=== PATIENT | female | born 1985 | race African-American/Black ===

== ENCOUNTER 2018-10-29 09:58 | Inpatient (IN) | payer MEDICARE, OTHER ==
[2018-10-29] MEDS ORDERED: CARBOPROST TROMETHAMINE 250 MCG/ML 1 ML AMP IM PRN (10:32)
[2018-10-29] MEDS ORDERED: AMPICILLIN 2,000 MG in SODIUM CHLORIDE 0.9% 100 ML IVPB STA (10:32)
[2018-10-29] MEDS ORDERED: TERBUTALINE 1 MG/ML VIAL SQ PRN (10:32)
[2018-10-29] MEDS ORDERED: OXYTOCIN 10 UNIT/ML 1 ML VIAL IM PRN (10:32)
[2018-10-29] MEDS ORDERED: LIDOCAINE 0.5% (PF) 5 MG/ML (50 ML SDV) SQ PRN (10:32)
[2018-10-29] MEDS ORDERED: METHYLERGONOVINE 0.2 MG/ML 1 ML AMP IM PRN (10:32)
[2018-10-29] MEDS ORDERED: LACTATED RINGERS 1,000 ML IV SCH (10:45)
[2018-10-29] MEDS ORDERED: OXYTOCIN 30 UNITS/500 ML NS 30 UNIT in SALINE 1 500ML.BAG IV SCH (10:45)
[2018-10-29 10:57] LABS: Glucose,Whole Blood 208 mg/dL (75-99)
[2018-10-29 11:01] LABS: Basophils % (A) 0 %; Eosinophils # (A) 0.1 k/uL (0-0.7); Eosinophils % (A) 2 %; HCT 49.8 % (34.0-46.0); HGB 15.9 gm/dL (11.4-16.0); Hypochromasia Slight; Lymphocytes # (A) 0.4 k/uL (1.0-4.8); Lymphocytes % (A) 7 %; MCH 28.1 pg (25.0-35.0); MCHC 31.9 g/dL (31.0-37.0); MCV 88.2 fL (80.0-100.0); Mean Platelet Volume 7.9; Monocytes # (A) 0.3 k/uL (0-1.0); Monocytes % (A) 5 %; Neutrophils # (A) 5.2 k/uL (1.3-7.7); Neutrophils % (A) 85 %; Platelet Count 135 k/uL (150-450); RBC 5.65 m/uL (3.80-5.40); RDW 14.6 % (11.5-15.5); WBC 6.1 k/uL (3.8-10.6)
[2018-10-29] MEDS ORDERED: WITCH HAZEL 1 EACH MED..PAD TOPICAL PRN (11:28)
[2018-10-29] MEDS ORDERED: BISACODYL 10 MG SUPP RECTAL PRN (11:28)
[2018-10-29] MEDS ORDERED: LANOLIN CREAM 5 GM TUBE TOPICAL PRN (11:28)
[2018-10-29] MEDS ORDERED: ZOLPIDEM 5 MG TAB PO PRN (11:28)
[2018-10-29] MEDS ORDERED: diphenhydrAMINE 50 MG/ML 1 ML VIAL IVP PRN (11:28)
[2018-10-29] MEDS ORDERED: diphenhydrAMINE 25 MG CAP PO PRN (11:28)
[2018-10-29] MEDS ORDERED: BENZOCAINE/MENTHOL SPRAY 1 GM/SPRAY AEROSOL TOPICAL PRN (11:28)
[2018-10-29] MEDS ORDERED: HYDROCORTISONE 2.5% RECTAL CREAM 30 GM TUBE RECTAL PRN (11:28)
[2018-10-29] MEDS ORDERED: SIMETHICONE 80 MG CHEWABLE PO PRN (11:28)
[2018-10-29] MEDS ORDERED: OXYTOCIN 20 UNITS/1000 ML NS 1,000 ML IV SCH (11:30)
--- NOTE | 2018-10-29 11:49 | US ---
EXAMINATION TYPE: US OB >= 14 wk fetus DATE OF EXAM: 10/29/2018 COMPARISON: None CLINICAL HISTORY: position TECHNIQUE: Transabdominal (TA) GESTATIONAL AGE / DATING Physician Established: unknown Dates by LMP: unknown Dates by First Scan: unknown Dates by Current Scan: unknown Beta HCG (if available): SURVEY IUP: PLACENTA: PREVIA: No Previa ELVA: cm head in cervix BIOMETRY PRESENTATION: Vertex LIE: Oblique BPD: 8.7 cm 35 weeks / 1 days HC: 31.1 cm 34 weeks / 6 days AC: 34 cm 38 weeks / 0 days FL: 6.7 cm 34 weeks / 4 days ESTIMATED WEIGHT IN GRAMS: 2935 grams ESTIMATED WEIGHT IN LBS/OZ: 6 lbs. 8 oz. HC/AC: 0.9 FL/AC: not recorded HEART RATE: 153 bpm RHYTHM: Normal Patient in active labor, head in canal and measurement estimated to best ability. Baby delivered within moments of finish of exam IMPRESSION: Limited exam.
[2018-10-29] MEDS: IBUPROFEN 600 MG TAB PO PRN ×2 (11:50→17:41)
--- NOTE | 2018-10-29 12:24 | P.HPOB ---
History of Present Illness H&P Date: 10/29/18 Chief Complaint: Contractions. Limited care This patient is a 33-year-old 5 para 4 female who presented to labor and delivery with complaints of contractions. Patient states that she was getting care with Dr. Marie however she is not seen him in over 3 weeks. Patient is a gestational diabetic and possibly pre-gestational diabetic who has not been checking her blood sugars or managing any of her diabetes. Patient states that she "does not care anymore" and has been "eating whatever she wants". She states that she did see maternal medicine once in her and they gave her a due date of November 27 which places her approximately 35-36 weeks. Patient previously seen Dr. Gunn with her last and similar was noncompliant with her diabetes and care. Patient states she has not been controlling her blood sugars for over 2 years. Patient now is found to be in active labor and delivering. Review of Systems Genitourinary: Reports Menstruation: Reports amenorrhea Past Medical History Past Medical History: Diabetes Mellitus (Gestational A2) Additional Past Medical History / Comment(s): 4 spontaneous vaginal deliveries. Patient's history is significant for noncompliance and history of positive group B strep. History of Any Multi-Drug Resistant Organisms: None Reported Past Surgical History: No Surgical Hx Reported Past Anesthesia/Blood Transfusion Reactions: No Reported Reaction Past Psychological History: ADD/ADHD, Anxiety, Bipolar Smoking Status: Never smoker Past Alcohol Use History: None Reported Past Drug Use History: None Reported - Past Family History Mother Family Medical History: Diabetes Mellitus Medications and Allergies Home Medications Medication Instructions Recorded Confirmed Type Acyclovir 400 mg PO DAILY 09/22/17 09/22/17 History Insulin Glargine [Lantus] 30 unit SQ HS 09/22/17 09/22/17 History Insulin Lispro [humaLOG] 10 units SQ ACHS 09/22/17 09/22/17 History Acetaminophen Tab [Tylenol] 650 mg PO Q4HR PRN #30 tab 09/24/17 Rx Ibuprofen [Motrin] 600 mg PO Q6HR PRN #30 tab 09/24/17 Rx Allergies Allergy/AdvReac Type Severity Reaction Status Date / Time Fish Containing Products Allergy Nausea & Verified 09/22/17 06:12 [Fish] Vomiting & Diarrhea milk Allergy Nausea & Verified 09/22/17 06:12 Vomiting & Diarrhea shellfish derived [Shellfish] AdvReac Anaphylaxis Verified 09/22/17 06:12 Exam Intake and Output 10/28/18 10/29/18 10/29/18 22:59 06:59 14:59 Other: Weight 113.398 kg - OBG Physical Exam Abdomen: bowel sounds normal, no diffuse tenderness, no bruit present, no guar ding noted, no hepatomegaly, no splenomegaly, no mass Results No records are available to me from this . Patient's had a previous with Dr. Gunn shows her to be positive for group B strep. Ultrasounds shows a vertex 6 lbs. 8 oz. Result Diagrams: 10/29/18 10:39 10/29/18 10:39 Abnormal Lab Results - Last 24 Hours (Table) 10/29/18 10/29/18 10/29/18 Range/Units 10:36 10:39 10:39 RBC 5.65 H (3.80-5.40) m/uL Hct 49.8 H (34.0-46.0) % Plt Count 135 L (150-450) k/uL Lymphocytes # 0.4 L (1.0-4.8) k/uL Glucose 194 H (74-99) mg/dL POC Glucose (mg/dL) 208 H (75-99) mg/dL Assessment and Plan Assessment: This is a 33-year-old 5 para 4 female probably 35-36 weeks with limited/noncompliant care who is in active labor. Please see dictated delivery note. On admission I did order blood work, complete ultrasound, IV antibiotics. Had a discussion with the patient about her noncompliance with diabetes and she says she really "does not care". Patient delivered precipitously in the bathroom despite having this happen to her previously and I'm suspicious that she knew this was going to happen. Plan at this time is to resume care and also will get a social media content manager consult. (1) 35 to 36 weeks gestation of Current Visit: Yes Status: Acute Code(s): OXA0150 - SNOMED Code(s): 100175997 (2) Gestational diabetes mellitus Current Visit: Yes Status: Acute Code(s): O24.419 - GESTATIONAL DIABETES MELLITUS IN , UNSP CONTROL SNOMED Code(s): 42585064 (3) Non-compliance with treatment Current Visit: Yes Status: Acute Code(s): Z91.19 - PATIENT'S NONCOMPLIANCE W OTH MEDICAL TREATMENT AND REGIMEN SNOMED Code(s): 5307143
--- NOTE | 2018-10-29 12:27 | P.PROBDLV ---
Vaginal Delivery Note - . Vaginal Delivery Note: Normal spontaneous vaginal delivery viable female infant Apgars 8 and 8 delivery time is 108 hours. Please note patient delivered precipitously in the bathroom. Please see dictated H&P on this patient's admission. Brief summary this is a 33-year-old 5 para 4 female with no care/limited care with uncontrolled gestational diabetes who presented this morning with complaints of contractions. Patient had pelvic ultrasound showed infant to be vertex 6 lbs. 8 oz. and was 6-7 cm dilated. Patient was immediately given IV antibiotics secondary to unknown group B strep status. Patient stated that she had to go to the bathroom and she refused catheterization and therefore she got up and went to the bathroom on her own. The nurse was subsequently called while she was delivering the baby in the bathroom. This was a viable female Ap gars were 8 and 8 delivery time was 1108 hrs. Please see nursing notes. The is then subsequent taken to special care nursery for evaluation due to prematurity and lack of care. Dr. Alas did come over because I was in a delivery and he deliver the placenta is inspected the perineum. Patient had a first-degree laceration which she refused repair. Therefore no repair was done. Bleeding appears to be normal. We'll now resume normal care.
[2018-10-29 12:42] LABS: Appearance,Urine Clear (Clear); Bacteria,Urine Rare /hpf; Bilirubin,Urine Negative (Negative); Blood,Urine Moderate (Negative); Color,Urine Yellow; Glucose,Urine (UA) 4+ (Negative); Leukocyte Esterase,Urine Negative (Negative); Mucus,Urine Rare /hpf; Nitrite,Urine Negative (Negative); Protein,Urine 1+ (Negative); RBC,Urine 24 /hpf (0-5); Specific Gravity,Urine 1.021 (1.001-1.035); Squamous Epithelial Cell,Urine 1 /hpf (0-4); Urobilinogen,Urine <2.0 mg/dL (<2.0); WBC,Urine 1 /hpf (0-5)
[2018-10-29 13:05] LABS: Ketones,Urine 4+ (Negative)
[2018-10-29] MEDS: ACETAMINOPHEN TAB 325 MG TAB PO PRN ×2 (13:13→23:16)
[2018-10-29 13:26] LABS: Amphetamine Screen,Urine Not Detected (NotDetected); Barbiturate Screen,Urine Not Detected (NotDetected); Benzodiazepines Screen,Urine Not Detected (NotDetected); Cocaine Screen,Urine Not Detected (NotDetected); Methadone Screen, Urine Not Detected (NotDetected); Opiate Screen,Urine Not Detected (NotDetected); Oxycodone Screen, Urine Not Detected (NotDetected); Phencyclidine Screen,Urine Not Detected (NotDetected); Tricyclic Antidepressant,Urine Not Detected (NotDetected); Urn Cannabinoid Scrn Not Detected (NotDetected)
[2018-10-29 14:16] VITALS: BMI 42.9
[2018-10-29] MEDS ORDERED: AMPICILLIN 1,000 MG in SODIUM CHLORIDE 0.9% 50 ML IVPB SCH (14:30)
[2018-10-29 17:28] LABS: HIV 1 AB Non-Reactive (Non-Reactive); HIV AB P24 Non-Reactive (Non-Reactive); HIV P24 AG Non-Reactive (Non-Reactive)
[2018-10-29 18:31] LABS: Hemoglobin A1C 9.9 % (4.0-6.0)
[2018-10-29] MEDS: SENNOSIDES-DOCUSATE SODIUM 1 EACH TAB PO SCH (19:53)
[2018-10-30] MEDS: IBUPROFEN 600 MG TAB PO PRN ×2 (06:02→15:27)
--- NOTE | 2018-10-30 07:19 | P.PN ---
Progress Note - Text Progress Note Date: 10/30/18 Post day #1. Patient is resting without complaints. Vital signs are stable and she is afebrile. Uterus is firm nontender she's having normal lochia. Her hemoglobin A1c returned at 9.9 and I had a long discussion with her about her poor diabetic control. Patient already does have established care with a primary care physician but as I stated previously she indicated to me that she is not been watching her blood sugar for well over 2 years. I emphasized the need for glucose regulation. At this time we'll continue routine care. Upon discharge tomorrow patient will follow up with her out and out cigar maker hand Dr. Marie and her primary care physician for glucose regulation. Patient has not indicated a desire for diabetic care at this time.
[2018-10-30] MEDS: ACETAMINOPHEN TAB 325 MG TAB PO PRN ×2 (07:56→20:33)
[2018-10-30] MEDS: SENNOSIDES-DOCUSATE SODIUM 1 EACH TAB PO SCH ×2 (07:56→20:33)
[2018-10-30 08:59] LABS: Basophils % (A) 0 %; Eosinophils # (A) 0.2 k/uL (0-0.7); Eosinophils % (A) 4 %; HCT 45.1 % (34.0-46.0); HGB 14.3 gm/dL (11.4-16.0); Hypochromasia Slight; Lymphocytes # (A) 0.5 k/uL (1.0-4.8); Lymphocytes % (A) 12 %; MCH 28.2 pg (25.0-35.0); MCHC 31.6 g/dL (31.0-37.0); MCV 89.2 fL (80.0-100.0); Mean Platelet Volume 9.1; Monocytes # (A) 0.3 k/uL (0-1.0); Monocytes % (A) 7 %; Neutrophils # (A) 2.8 k/uL (1.3-7.7); Neutrophils % (A) 72 %; Platelet Count 138 k/uL (150-450); RBC 5.06 m/uL (3.80-5.40); WBC 3.9 k/uL (3.8-10.6)
[2018-10-31] MEDS: IBUPROFEN 600 MG TAB PO PRN ×2 (01:54→07:48)
--- NOTE | 2018-10-31 07:25 | P.PNOBGVD ---
Subjective - Subjective Patient reports: Reports appetite normal, Reports voiding normally, Reports pain well controlled, Reports ambulating normally : doing well Objective - Latest Vital Signs Latest vital signs: Vital Signs Temp Pulse Resp BP 10/30/18 23:19 98.1 F 93 16 111/67 10/30/18 16:00 98.2 F 88 16 112/64 10/30/18 08:00 98.1 F 87 16 126/71 Intake and Output 10/30/18 10/31/18 10/31/18 22:59 06:59 14:59 Other: # Voids 1 1 - Exam Lungs: bilateral: normal Chest: Normal S1, Normal S2 Extremities: Present: normal Abdomen: Present: normal appearance, soft Uterus: Present: normal, firm - Labs Labs: Abnormal Lab Results - Last 24 Hours (Table) 10/30/18 Range/Units 08:42 Plt Count 138 L (150-450) k/uL Lymphocytes # 0.5 L (1.0-4.8) k/uL Assessment and Plan Assessment: day #2. Patient is resting without complaints. Vital signs are stable and she is afebrile. Patient was seen by dietary yesterday due to the most likely diagnosis of pre-gestational diabetes. My impression is normal course. Plan is to continue routine care discharge home later today. (1) 35 to 36 weeks gestation of Current Visit: Yes Status: Acute Code(s): LIE3903 - SNOMED Code(s): 308988135 (2) Gestational diabetes mellitus Current Visit: Yes Status: Acute Code(s): O24.419 - GESTATIONAL DIABETES MELLITUS IN , UNSP CONTROL SNOMED Code(s): 61974763 (3) Non-compliance with treatment Current Visit: Yes Status: Acute Code(s): Z91.19 - PATIENT'S NONCOMPLIANCE W OTH MEDICAL TREATMENT AND REGIMEN SNOMED Code(s): 8769646
--- NOTE | 2018-10-31 07:31 | P.DS ---
Providers Date of admission: 10/29/18 10:24 Expected date of discharge: 10/31/18 Attending physician: Apollo Liu Primary care physician: Stated None - Discharge Diagnosis(es) (1) 35 to 36 weeks gestation of Current Visit: Yes Status: Acute (2) Gestational diabetes mellitus Current Visit: Yes Status: Acute (3) Non-compliance with treatment Current Visit: Yes Status: Acute Hospital Course: Please see dictated H&P for intimate details of this patient's admission. In brief summary this is a 33-year-old 5 para 4 female who is admitted to labor and delivery in advanced active labor. Patient has had relatively no care and has a previous diagnosis of insulin-dependent diabetes. Patient quickly went on to have a precipitous vaginal delivery of viable female infant. Please see dictated delivery note. Of note evaluation did show a hemoglobin A1c of 9.9 and the patient indicated she is not been watching her blood sugars for well over 2 years. She does have a primary care doctor which she does see. Patient was seen by dietary while in the hospital. Patient declined any treatment for her diabetes. She states she would prefer to discuss this with her primary care physician. Patient was felt be stable for discharge home on day #2. She was instructed to follow-up with her primary tire mounter Dr. Marie for visit and she also will follow up with her primary care physician for her diabetes in 1-2 days. I did briefly discuss control with her and she indicated: "I do not believe in control". I recommended that she continue this discussion with Dr. Marie due to the increased risk of gestational diabetes and poor outcome. Procedures: Normal spontaneous vaginal delivery. Patient Condition at Discharge: Good Plan - Discharge Summary New Discharge Prescriptions: New Ibuprofen [Motrin] 600 mg PO Q6HR PRN #30 tab PRN Reason: Mild Pain Or Fever >= 100.5 Discharge Medication List Ibuprofen [Motrin] 600 mg PO Q6HR PRN #30 tab 10/31/18 [Rx] Follow up Appointment(s)/Referral(s): Jules Marie DO [REFERRING] - 1 Week Patient Instructions/Handouts: Vaginal Delivery (DC) Activity/Diet/Wound Care/Special Instructions: No intercourse or anything per vagina for 6 weeks. Please call if any fever, chills, excessive vaginal bleeding, and/or abdominal pain. Please call your primary tire mounter to be seen within the next week for evaluation and follow- up Discharge Disposition: HOME SELF-CARE
[2018-10-31 07:58] VITALS: RESP 15
[2018-10-31] MEDS: ACETAMINOPHEN TAB 325 MG TAB PO PRN (15:12)
[2018-10-31 15:38] VITALS: BP 116/70; PULSE 90; TEMP 98.6
[2018-10-31] MEDS: SENNOSIDES-DOCUSATE SODIUM 1 EACH TAB PO SCH (18:17)
--- NOTE | 2018-11-03 09:04 | CDI ---
Documentation Clarification Form Date: 11/03/2018 7:50:00 AM From: Yadira Huang Jennifer Salinas, Sales Assistant Displays Hours-8:30 am & 5 pm [employer] Admit Date: 10/29/2018 10:24:00 AM Patient Name: Flor Cazares Visit Number: [id number] Discharge Date: 10/31/2018 4:15:00 PM ATTENTION: The Clinical Documentation Specialists (CDI) and [facility] Coding Staff appreciate your assistance in clarifying documentation. Please respond to the clarification below the line at the bottom and electronically sign. The CDI & [facility] Coding staff will review the response and follow-up if needed. Please note: Queries are made part of the Legal Health Record. If you have any questions, please contact the author of this message via ITS. Dr. Apollo Liu Diabetes is documented as gestational and possibly pre existing in the PNs, H&P, DS, History/Risk Factors: Non Compliance, Family HX DM Clinical Indicators: Elevated Glucose Patient has previous dx of insulin dependent DM with a recommendation to follow up with PCP for diabetes documented on the DS. In order to capture the severity of Illness and necessary documentation specificity, please clarify: DM Type 1 DM Type 2 Gestational DM Other, please specify Unable to Determine Unable to determine. Patient has had no care with wa or at this facility. Diagnosis is based on patient's history MTDD
== END 2018-10-31 16:15 | disposition home or self-care (01) | DRG 807 ==
LOC: FBPOP 09:58 → 4FBP 10:24
PROVIDERS: ADMIT Obstetrics & Gynecology; ATTEND Obstetrics & Gynecology
PROC: 10E0XZZ Delivery of Products of Conception, External Approach (ICD-10-PCS; principal; 2018-10-29)
DX: O60.14X0 Preterm labor third trimester with preterm delivery third trimester, not applicable or unspecified (principal); Z37.0 Single live birth; O99.344 Other mental disorders complicating childbirth; O24.429 Gestational diabetes mellitus in childbirth, unspecified control; O70.0 First degree perineal laceration during delivery; F90.9 Attention-deficit hyperactivity disorder, unspecified type; F31.9 Bipolar disorder, unspecified; F41.9 Anxiety disorder, unspecified; O99.824 Streptococcus B carrier state complicating childbirth; O62.3 Precipitate labor; Z3A.36 36 weeks gestation of pregnancy; Z91.19 Patient's noncompliance with other medical treatment and regimen; Z91.011 Allergy to milk products; Z91.013 Allergy to seafood; Z83.3 Family history of diabetes mellitus
CPT/HCPCS: 76805; 80306; 81001; 82947; 83036; 85025; 86762; 86780; 86850; 86900; 86901; 87340; 87390; 88307; 99213

== ENCOUNTER 2019-09-12 14:49 | Inpatient (IN) | payer MEDICARE, OTHER ==
[2019-09-12] MEDS ORDERED: ACETAMINOPHEN TAB 325 MG TAB PO STA (15:00)
[2019-09-12 15:02] LABS: Glucose,Whole Blood 242 mg/dL (75-99)
[2019-09-12] MEDS ORDERED: SODIUM CHLORIDE 0.9% 1,000 ML IV ONE (15:27)
[2019-09-12] MEDS ORDERED: SODIUM CHLORIDE 0.9% 500 ML 500 ML IV ONE (15:27)
[2019-09-12] MEDS ORDERED: KETOROLAC 30 MG/ML 1 ML VIAL IVP STA (15:28)
[2019-09-12] MEDS ORDERED: SODIUM CHLORIDE 0.9% 1,000 ML IV SCH (15:30)
--- NOTE | 2019-09-12 15:44 | ED ---
Abdominal Pain HPI - General Chief Complaint: Abdominal Pain Stated Complaint: Abd.pain Time Seen by Provider: 09/12/19 15:00 Source: patient Mode of arrival: ambulatory - History of Present Illness Initial Comments: 34-year-old female presenting today for chief complaint of flank pain left- sided, fever. Patient states she has had left-sided flank pain for the past 2 weeks. Patient states she expresses approximately 1 month ago and presented to the [facility] where she was discharged after laboratory studies were obtained no imaging studies patient was concerned she had a kidney stone at this time. Patient denies passage of kidney stone. Patient denies hematuria. Patient denies dysuria urgency or frequency. Patient states that she is also diabetic and has been eating whatever she wants to not taking her medications as she should. Patient states that she has had nausea and has not been wanting to eat for the past few days she denies vomiting. Denies diarrhea. Patient states she developed a fever yesterday that persisted into today she thought that something was wrong and she needs presents to the emergency department. Patient denies upper respiratory symptoms. Patient states she continues to have left flank pain that varies in intensity. Ptient states pain was relieved at [facility] one month prior with toradol. Upon arrival patient febrile. - Related Data Home Medications Medication Instructions Recorded Confirmed glipiZIDE [Glucotrol] 20 mg PO BID 09/12/19 09/12/19 Allergies Allergy/AdvReac Type Severity Reaction Status Date / Time Fish Containing Products Allergy Nausea & Verified 09/12/19 18:49 [Fish] Vomiting & Diarrhea milk Allergy Nausea & Verified 09/12/19 18:49 Vomiting & Diarrhea shellfish derived [Shellfish] AdvReac Anaphylaxis Verified 09/12/19 18:49 Review of Systems ROS Statement: Those systems with pertinent positive or pertinent negative responses have been documented in the HPI. ROS Other: All systems not noted in ROS Statement are negative. Past Medical History Past Medical History: Diabetes Mellitus Additional Past Medical History / Comment(s): 4 spontaneous vaginal deliveries. Patient's history is significant for noncompliance and history of positive group B strep. History of Any Multi-Drug Resistant Organisms: None Reported Past Surgical History: No Surgical Hx Reported Past Anesthesia/Blood Transfusion Reactions: No Reported Reaction Past Psychological History: ADD/ADHD, Anxiety, Bipolar Smoking Status: Never smoker Past Alcohol Use History: None Reported Past Drug Use History: None Reported - Past Family History Mother Family Medical History: Diabetes Mellitus General Exam - General Exam Comments Initial Comments: General: The patient is awake and alert, in no distress Eye: +3 mm pupils are equal, round and reactive to light, extra-ocular movements are intact. No nystagmus. There is normal conjunctiva bilaterally. No signs of icterus. Ears, nose, mouth and throat: There are moist mucous membranes and no oral lesions. Neck: The neck is supple, there is no tenderness or JVD. Cardiovascular: There is a regular rate and rhythm. No murmur, rub or gallop is appreciated. Respiratory: Lungs are clear to auscultation, respirations are non-labored, breath sounds are equal. No wheezes, stridor, rales, or rhonchi. Gastrointestinal: Soft, non-distended, non-tender abdomen including pelvic region without masses or organomegaly noted. There is no rebound or guarding present. No CVA tenderness. Pelvic: NO external lesions, blood in vault brown, no significant discharge. no adnexal or cervical motion tenderness. Musculoskeletal: Normal ROM, no tenderness. Strength 5/5. Sensation intact. Radial pulses equal bilaterally 2+. Neurological: A&O x 3. CN II-XII intact grossly, There are no obvious motor or sensory deficits. Coordination appears grossly intact. Speech is normal. Skin: Skin is warm and dry and no rashes or lesions are noted. Psychiatric: Cooperative, appropriate mood & affect, normal judgment. Course Vital Signs 09/12/19 09/12/19 09/12/19 14:52 14:56 15:56 Temperature 103.0 F H Pulse Rate 111 H 102 H Pulse Rate [ Pulse Oximetery ] Respiratory 18 20 20 Rate Blood Pressure 120/75 112/60 Blood Pressure [Right Arm] O2 Sat by Pulse 98 98 Oximetry 09/12/19 09/12/19 09/12/19 16:56 17:00 18:00 Temperature Pulse Rate 99 99 99 Pulse Rate [ Pulse Oximetery ] Respiratory 20 20 20 Rate Blood Pressure 109/62 Blood Pressure [Right Arm] O2 Sat by Pulse 98 98 98 Oximetry 09/12/19 09/12/19 09/12/19 19:00 20:00 20:45 Temperature 100.1 F H 100.2 F H Pulse Rate 96 Pulse Rate [ 97 Pulse Oximetery ] Respiratory 20 16 16 Rate Blood Pressure Blood Pressure 114/80 [Right Arm] O2 Sat by Pulse 98 100 Oximetry Medical Decision Making - Medical Decision Making 34-year-old diabetic presenting for left flank pain, and ingrown. CT revealed no evidence of septic stone. Patient's urinalysis consistent with urinary tract infection concerned for pyelonephritis. Patient given rocephin iVPB. Patient has no signs of PID on pelvic. I feel UTI/ lifestyle causes of increased sugar and subsequent acidosis. Patient was placed on insulin drip without bolus. Patient also had IV potassium given she was at 3.5 prior to insulin drip administration. Given patient mild elevation of anion gap are ordered a second CMP to be drawn to closely monitor when insulin drip may be discontinued. Patient continues to r emain stable in ER and will be admitted for IV abx and hydration. Dr. Huston accepted admission and case was discussed in detail with attending provider Dr. Gill. - Lab Data Result diagrams: 09/12/19 15:35 09/12/19 19:08 Lab Results 09/12/19 09/12/19 09/12/19 Range/Units 14:56 15:35 15:35 WBC 8.6 (3.8-10.6) k/uL RBC 5.01 (3.80-5.40) m/uL Hgb 13.8 (11.4-16.0) gm/dL Hct 43.0 (34.0-46.0) % MCV 85.8 (80.0-100.0) fL MCH 27.5 (25.0-35.0) pg MCHC 32.1 (31.0-37.0) g/dL RDW 12.8 (11.5-15.5) % Plt Count 174 (150-450) k/uL Neutrophils % 85 % Lymphocytes % 3 % Monocytes % 7 % Eosinophils % 1 % Basophils % 2 % Neutrophils # 7.3 (1.3-7.7) k/uL Lymphocytes # 0.3 L (1.0-4.8) k/uL Monocytes # 0.6 (0-1.0) k/uL Eosinophils # 0.1 (0-0.7) k/uL Basophils # 0.2 (0-0.2) k/uL Sodium 137 (137-145) mmol/L Potassium 3.5 (3.5-5.1) mmol/L Chloride 103 (98-107) mmol/L Carbon Dioxide 18 L (22-30) mmol/L Anion Gap 16 mmol/L BUN 13 (7-17) mg/dL Creatinine 0.71 (0.52-1.04) mg/dL Est GFR (CKD-EPI)AfAm >90 (>60 ml/min/1.73 sqM) Est GFR (CKD-EPI)NonAf >90 (>60 ml/min/1.73 sqM) Glucose 256 H (74-99) mg/dL POC Glucose (mg/dL) 242 H (75-99) mg/dL POC Glu Brick Wheeler ID Nini Krishnan Plasma Lactic Acid Sher (0.7-2.0) mmol/L Calcium 9.0 (8.4-10.2) mg/dL Phosphorus (2.5-4.5) mg/dL Magnesium (1.6-2.3) mg/dL Total Bilirubin 0.8 (0.2-1.3) mg/dL AST 21 (14-36) U/L ALT 12 (4-34) U/L Alkaline Phosphatase 146 H (38-126) U/L Total Protein 7.2 (6.3-8.2) g/dL Albumin 4.0 (3.5-5.0) g/dL Amylase 35 (30-110) U/L Lipase 55 (23-300) U/L Urine Color Urine Appearance (Clear) Urine pH (5.0-8.0) Ur Specific [place] (1.001-1.035) Urine Protein (Negative) Urine Glucose (UA) (Negative) Urine Ketones (Negative) Urine Blood (Negative) Urine Nitrite (Negative) Urine Bilirubin (Negative) Urine Urobilinogen (<2.0) mg/dL Ur Leukocyte Esterase (Negative) Urine RBC (0-5) /hpf Urine WBC (0-5) /hpf Ur Squamous Epith Cells (0-4) /hpf Urine Mucus (None) /hpf Urine HCG, Qual (Not Detectd) Acetone, Qual Positive (Negative) Influenza Type A RNA (Not Detectd) Influenza Type B (PCR) (Not Detectd) Trichomonas Ag (Rapid) (Negative) 09/12/19 09/12/19 09/12/19 Range/Units 15:35 15:35 15:35 WBC (3.8-10.6) k/uL RBC (3.80-5.40) m/uL Hgb (11.4-16.0) gm/dL Hct (34.0-46.0) % MCV (80.0-100.0) fL MCH (25.0-35.0) pg MCHC (31.0-37.0) g/dL RDW (11.5-15.5) % Plt Count (150-450) k/uL Neutrophils % % Lymphocytes % % Monocytes % % Eosinophils % % Basophils % % Neutrophils # (1.3-7.7) k/uL Lymphocytes # (1.0-4.8) k/uL Monocytes # (0-1.0) k/uL Eosinophils # (0-0.7) k/uL Basophils # (0-0.2) k/uL Sodium (137-145) mmol/L Potassium (3.5-5.1) mmol/L Chloride (98-107) mmol/L Carbon Dioxide (22-30) mmol/L Anion Gap mmol/L BUN (7-17) mg/dL Creatinine (0.52-1.04) mg/dL Est GFR (CKD-EPI)AfAm (>60 ml/min/1.73 sqM) Est GFR (CKD-EPI)NonAf (>60 ml/min/1.73 sqM) Glucose (74-99) mg/dL POC Glucose (mg/dL) (75-99) mg/dL POC Glu Brick Wheeler ID Plasma Lactic Acid Sher 1.1 (0.7-2.0) mmol/L Calcium (8.4-10.2) mg/dL Phosphorus (2.5-4.5) mg/dL Magnesium (1.6-2.3) mg/dL Total Bilirubin (0.2-1.3) mg/dL AST (14-36) U/L ALT (4-34) U/L Alkaline Phosphatase (38-126) U/L Total Protein (6.3-8.2) g/dL Albumin (3.5-5.0) g/dL Amylase (30-110) U/L Lipase (23-300) U/L Urine Color Yellow Urine Appearance Cloudy H (Clear) Urine pH 6.0 (5.0-8.0) Ur Specific [place] 1.028 (1.001-1.035) Urine Protein 2+ H (Negative) Urine Glucose (UA) 4+ H (Negative) Urine Ketones 4+ H (Negative) Urine Blood Moderate H (Negative) Urine Nitrite Negative (Negative) Urine Bilirubin Negative (Negative) Urine Urobilinogen 4.0 (<2.0) mg/dL Ur Leukocyte Esterase Moderate H (Negative) Urine RBC 18 H (0-5) /hpf Urine WBC 79 H (0-5) /hpf Ur Squamous Epith Cells 7 H (0-4) /hpf Urine Mucus Occasional H (None) /hpf Urine HCG, Qual Not Detected (Not Detectd) Acetone, Qual (Negative) Influenza Type A RNA (Not Detectd) Influenza Type B (PCR) (Not Detectd) Trichomonas Ag (Rapid) (Negative) 09/12/19 09/12/19 09/12/19 Range/Units 15:35 16:00 17:50 WBC (3.8-10.6) k/uL RBC (3.80-5.40) m/uL Hgb (11.4-16.0) gm/dL Hct (34.0-46.0) % MCV (80.0-100.0) fL MCH (25.0-35.0) pg MCHC (31.0-37.0) g/dL RDW (11.5-15.5) % Plt Count (150-450) k/uL Neutrophils % % Lymphocytes % % Monocytes % % Eosinophils % % Basophils % % Neutrophils # (1.3-7.7) k/uL Lymphocytes # (1.0-4.8) k/uL Monocytes # (0-1.0) k/uL Eosinophils # (0-0.7) k/uL Basophils # (0-0.2) k/uL Sodium (137-145) mmol/L Potassium (3.5-5.1) mmol/L Chloride (98-107) mmol/L Carbon Dioxide (22-30) mmol/L Anion Gap mmol/L BUN (7-17) mg/dL Creatinine (0.52-1.04) mg/dL Est GFR (CKD-EPI)AfAm (>60 ml/min/1.73 sqM) Est GFR (CKD-EPI)NonAf (>60 ml/min/1.73 sqM) Glucose (74-99) mg/dL POC Glucose (mg/dL) (75-99) mg/dL POC Glu Brick Wheeler ID Plasma Lactic Acid Sher (0.7-2.0) mmol/L Calcium (8.4-10.2) mg/dL Phosphorus 1.9 L (2.5-4.5) mg/dL Magnesium 1.9 (1.6-2.3) mg/dL Total Bilirubin (0.2-1.3) mg/dL AST (14-36) U/L ALT (4-34) U/L Alkaline Phosphatase (38-126) U/L Total Protein (6.3-8.2) g/dL Albumin (3.5-5.0) g/dL Amylase (30-110) U/L Lipase (23-300) U/L Urine Color Urine Appearance (Clear) Urine pH (5.0-8.0) Ur Specific [place] (1.001-1.035) Urine Protein (Negative) Urine Glucose (UA) (Negative) Urine Ketones (Negative) Urine Blood (Negative) Urine Nitrite (Negative) Urine Bilirubin (Negative) Urine Urobilinogen (<2.0) mg/dL Ur Leukocyte Esterase (Negative) Urine RBC (0-5) /hpf Urine WBC (0-5) /hpf Ur Squamous Epith Cells (0-4) /hpf Urine Mucus (None) /hpf Urine HCG, Qual (Not Detectd) Acetone, Qual (Negative) Influenza Type A RNA Not Detected (Not Detectd) Influenza Type B (PCR) Not Detected (Not Detectd) Trichomonas Ag (Rapid) Negative (Negative) Disposition Clinical Impression: Pyelonephritis, Fever, DKA (diabetic ketoacidoses), Left flank pain Disposition: ADMITTED IP TO THIS HOSP Condition: Stable Is patient prescribed a controlled substance at d/c from ED?: No Time of Disposition: 17:42 Decision to Admit Reason: Admit from EC Decision Date: 09/12/19 Decision Time: 17:42
[2019-09-12] MEDS ORDERED: cefTRIAXone IN SWFI 1,000 MG/10 ML SYRINGE IVP STA (16:03)
[2019-09-12 16:14] LABS: Basophils # (A) 0.2 k/uL (0-0.2); Basophils % (A) 2 %; Eosinophils # (A) 0.1 k/uL (0-0.7); Eosinophils % (A) 1 %; HGB 13.8 gm/dL (11.4-16.0); Lymphocytes # (A) 0.3 k/uL (1.0-4.8); Lymphocytes % (A) 3 %; MCH 27.5 pg (25.0-35.0); MCHC 32.1 g/dL (31.0-37.0); MCV 85.8 fL (80.0-100.0); Mean Platelet Volume 8.4; Monocytes # (A) 0.6 k/uL (0-1.0); Monocytes % (A) 7 %; Neutrophils # (A) 7.3 k/uL (1.3-7.7); Neutrophils % (A) 85 %; Platelet Count 174 k/uL (150-450); RBC 5.01 m/uL (3.80-5.40); RDW 12.8 % (11.5-15.5); WBC 8.6 k/uL (3.8-10.6)
[2019-09-12 16:24] LABS: Appearance,Urine Cloudy (Clear); Bilirubin,Urine Negative (Negative); Blood,Urine Moderate (Negative); Color,Urine Yellow; Glucose,Urine (UA) 4+ (Negative); Leukocyte Esterase,Urine Moderate (Negative); Mucus,Urine Occasional /hpf; Nitrite,Urine Negative (Negative); Protein,Urine 2+ (Negative); RBC,Urine 18 /hpf (0-5); Specific Gravity,Urine 1.028 (1.001-1.035); Squamous Epithelial Cell,Urine 7 /hpf (0-4); WBC,Urine 79 /hpf (0-5)
[2019-09-12 16:25] LABS: Ketones,Urine 4+ (Negative)
[2019-09-12 16:26] LABS: ALT 12 U/L (4-34); AST 21 U/L (14-36); African American GFR (CKD) >90 (>60 ml/min/1.73 sqM); Alkaline Phosphatase 146 U/L (38-126); Amylase 35 U/L (30-110); Anion Gap 16 mmol/L; Blood Urea Nitrogen 13 mg/dL (7-17); Carbon Dioxide 18 mmol/L (22-30); Chloride 103 mmol/L (98-107); Glucose 256 mg/dL (74-99); Non-African American GFR(CKD) >90 (>60 ml/min/1.73 sqM); Potassium 3.5 mmol/L (3.5-5.1); Sodium 137 mmol/L (137-145); Total Bilirubin 0.8 mg/dL (0.2-1.3); Total Protein 7.2 g/dL (6.3-8.2)
[2019-09-12 16:59] LABS: Magnesium 1.9 mg/dL (1.6-2.3); Phosphorus 1.9 mg/dL (2.5-4.5)
[2019-09-12] MEDS ORDERED: D5-0.45% NACL WITH KCL 20MEQ/L 1,000 ML IV SCH (17:00)
[2019-09-12] MEDS ORDERED: INSULIN REGULAR 100 UNIT in SODIUM CHLORIDE 0.9% 100 ML IV SCH (17:00)
--- NOTE | 2019-09-12 17:27 | CT ---
EXAMINATION TYPE: CT abdomen pelvis wo con DATE OF EXAM: 09/12/2019 COMPARISON: None HISTORY: Flank pain CT DLP: 1009.4 mGycm Automated exposure control for dose reduction was used. TECHNIQUE: Helical acquisition of images from the lung bases through the pelvis. FINDINGS: Lack of intravenous contrast may compromise the exam. Umbilical hernia contains fat. Probab le phleboliths are present within the pelvis. LUNG BASES: Some minimal dependent atelectatic change suspected on the left. AORTA: No significant abnormality is appreciated. LIVER/GB: Liver shows low attenuation likely due to hepatic steatosis, liver is enlarged, gallbladder may contain stones PANCREAS: No significant abnormality is seen. SPLEEN: No significant abnormality is seen. ADRENALS: No significant abnormality is seen. KIDNEYS: No significant abnormality is seen. REPRODUCTIVE ORGANS: Possibly there is a bulky uterus. Correlate for possible underlying fibroids. URINARY BLADDER: No significant abnormality is seen. BOWEL: No significant abnormality is seen. FREE AIR: No Free Air is visible. ASCITES: Question some hyperdense fluid in the cul-de-sac.. PELVIC ADENOPATHY: None visualized. RETROPERITONEAL ADENOPATHY: No Retroperitoneal Adenopathy visible. OSSEOUS STRUCTURES: No significant abnormality is seen. IMPRESSION: NONCONTRAST EXAM. HEPATOMEGALY WITH HEPATIC STEATOSIS. SUSPECT SOME FREE FLUID IN THE PELVIS, THERE M AY BEEN RUPTURED FOLLICLE, LESS SMALL AMOUNT OF HEMORRHAGE NOT EXCLUDED. NO EVIDENT KIDNEY STONE. ADD ITIONAL FINDINGS ABOVE.
[2019-09-12] MEDS ORDERED: NALOXONE 0.4 MG/ML 1 ML VIAL IV PRN (17:59)
[2019-09-12] MEDS: POTASSIUM CHLORIDE 20 MEQ in WATER FOR INJECTION 1 100ML.BAG IVPB SCH ×2 (18:06→20:06)
[2019-09-12 18:22] LABS: Glucose,Whole Blood 208 mg/dL (75-99)
[2019-09-12 19:31] LABS: VBG PH 7.38 (7.31-7.41)
[2019-09-12 19:41] LABS: Glucose,Whole Blood 200 mg/dL (75-99)
[2019-09-12 19:47] LABS: ALT 10 U/L (4-34); AST 14 U/L (14-36); African American GFR (CKD) >90 (>60 ml/min/1.73 sqM); Albumin 3.2 g/dL (3.5-5.0); Alkaline Phosphatase 111 U/L (38-126); Anion Gap 10 mmol/L; Blood Urea Nitrogen 11 mg/dL (7-17); Calcium 7.7 mg/dL (8.4-10.2); Carbon Dioxide 19 mmol/L (22-30); Chloride 109 mmol/L (98-107); Glucose 185 mg/dL (74-99); Non-African American GFR(CKD) >90 (>60 ml/min/1.73 sqM); Potassium 3.2 mmol/L (3.5-5.1); Sodium 138 mmol/L (137-145); Total Bilirubin 0.5 mg/dL (0.2-1.3); Total Protein 6.2 g/dL (6.3-8.2)
[2019-09-12 20:04] LABS: Glucose,Whole Blood 135 mg/dL (75-99)
[2019-09-12] MEDS: ACETAMINOPHEN TAB 325 MG TAB PO PRN (20:41)
[2019-09-12 21:10] LABS: Glucose,Whole Blood 103 mg/dL (75-99)
[2019-09-12] MEDS: INSULIN ASPART (NovoLOG) 100 UNIT/ML VIAL SQ SCH (21:35)
[2019-09-12] MEDS: SODIUM CHLORIDE 0.9% 1,000 ML IV SCH (22:30)
[2019-09-13] MEDS ORDERED: KETOROLAC 30 MG/ML 1 ML VIAL IVP STA (01:02)
[2019-09-13 03:45] LABS: African American GFR (CKD) >90 (>60 ml/min/1.73 sqM); Anion Gap 10 mmol/L; Blood Urea Nitrogen 9 mg/dL (7-17); Carbon Dioxide 16 mmol/L (22-30); Chloride 110 mmol/L (98-107); Glucose 214 mg/dL (74-99); Non-African American GFR(CKD) >90 (>60 ml/min/1.73 sqM); Phosphorus 1.9 mg/dL (2.5-4.5); Sodium 136 mmol/L (137-145)
[2019-09-13 04:05] LABS: Potassium 3.6 mmol/L (3.5-5.1)
[2019-09-13] MEDS: ACETAMINOPHEN TAB 325 MG TAB PO PRN ×2 (05:14→12:46)
[2019-09-13 06:17] LABS: Glucose,Whole Blood 187 mg/dL (75-99)
[2019-09-13] MEDS: INSULIN ASPART (NovoLOG) 100 UNIT/ML VIAL SQ SCH ×4 (06:46→22:20)
[2019-09-13 11:30] LABS: Glucose,Whole Blood 206 mg/dL (75-99)
--- NOTE | 2019-09-13 13:08 | P.HPIM ---
History of Present Illness 34-year-old female came in with complaints of left-sided flank pain does have leukocytosis, had a fever. Patient to urine cultures and blood cultures are positive for gram-negative bacilli. Patient also found to have elevated blood glucose with some anion gap probably mostly secondary to lactic acidosis as some starvation ketosis related acetone elevation but patient was treated for DKA although do not believe patient has DKA. CAT scan of the abdomen did not show any cholelithiasis. Patient was bit nauseous denied any vomiting. Denied any diarrhea Review of Systems REVIEW OF SYSTEMS: CONSTITUTIONAL: As mentioned in HPI HEENT: No recent visual problems or hearing problems. Denied any sore throat. CARDIOVASCULAR: No chest pain, orthopnea, PND, no palpitations, no syncope. PULMONARY: No shortness of breath, no cough, no hemoptysis. GASTROINTESTINAL: As mentioned in HPI NEUROLOGICAL: No headaches, no weakness, no numbness. HEMATOLOGICAL: Denies any bleeding or petechiae. GENITOURINARY: Denies any burning micturition, frequency, or urgency. MUSCULOSKELETAL/RHEUMATOLOGICAL: Denies any joint pain, swelling, or any muscle pain. ENDOCRINE: Denies any polyuria or polydipsia. The rest of the 14-point review of systems is negative. Past Medical History Past Medical History: Diabetes Mellitus Additional Past Medical History / Comment(s): 4 spontaneous vaginal deliveries. Patient's history is significant for noncompliance and history of positive group B strep. History of Any Multi-Drug Resistant Organisms: None Reported Past Surgical History: No Surgical Hx Reported Past Anesthesia/Blood Transfusion Reactions: No Reported Reaction Past Psychological History: ADD/ADHD, Anxiety, Bipolar Smoking Status: Never smoker Past Alcohol Use History: None Reported Past Drug Use History: None Reported - Past Family History Mother Family Medical History: Diabetes Mellitus Medications and Allergies Home Medications Medication Instructions Recorded Confirmed Type glipiZIDE [Glucotrol] 20 mg PO BID 09/12/19 09/12/19 History Allergies Allergy/AdvReac Type Severity Reaction Status Date / Time Fish Containing Products Allergy Nausea & Verified 09/12/19 18:49 [Fish] Vomiting & Diarrhea milk Allergy Nausea & Verified 09/12/19 18:49 Vomiting & Diarrhea Pork/Porcine Containing AdvReac Nausea & Verified 09/13/19 06:58 Products Vomiting & [Pork] Diarrhea shellfish derived [Shellfish] AdvReac Anaphylaxis Verified 09/12/19 18:49 Physical Exam Vitals: Vital Signs Temp Pulse Pulse Resp BP BP Pulse Ox 09/13/19 08:05 99.4 F 16 104/73 100 09/13/19 04:00 100.8 F H 104 H 18 111/69 98 09/13/19 00:00 101.0 F H 91 17 101/53 100 09/12/19 20:45 100.2 F H 97 16 114/80 100 09/12/19 20:00 16 09/12/19 19:00 100.1 F H 96 20 98 09/12/19 18:00 99 20 98 09/12/19 17:00 99 20 98 09/12/19 16:56 99 20 109/62 98 09/12/19 15:56 102 H 20 112/60 98 09/12/19 14:56 20 09/12/19 14:52 103.0 F H 111 H 18 120/75 98 Intake and Output 09/12/19 09/13/19 09/13/19 22:59 06:59 14:59 Intake Total 11.465 Balance 11.465 Intake: Intake, IV Titration 11.465 Amount Insulin Regular 100 unit 11.465 In Sodium Chloride 0.9% 100 ml @ 0.1 UNITS/KG/HR 10.583 mls/hr IV .[id number] [facility] Rx#:[id number] Other: Voiding Method Toilet Toilet # Voids 1 Weight 104.78 kg PHYSICAL EXAMINATION: GENERAL: The patient is alert and oriented x3, not in any acute distress. Obese HEENT: Pupils are round and equally reacting to light. EOMI. No scleral icterus. No conjunctival pallor. Normocephalic, atraumatic. No pharyngeal erythema. No thyromegaly. CARDIOVASCULAR: S1 and S2 present. No murmurs, rubs, or gallops. PULMONARY: Chest is clear to auscultation, no wheezing or crackles. ABDOMEN: Soft, nontender, nondistended, normoactive bowel sounds. No palpable organomegaly. MUSCULOSKELETAL: No joint swelling or deformity. EXTREMITIES: No cyanosis, clubbing, or pedal edema. NEUROLOGICAL: Gross neurological examination did not reveal any focal deficits. SKIN: No rashes. Results CBC & Chem 7: 09/12/19 15:35 09/13/19 02:44 Labs: Abnormal Lab Results - Last 24 Hours (Table) 09/12/19 09/12/19 09/12/19 Range/Units 14:56 15:35 15:35 Lymphocytes # 0.3 L (1.0-4.8) k/uL VBG pCO2 (37-51) mmHg VBG HCO3 (24-28) mmol/L Sodium (137-145) mmol/L Potassium (3.5-5.1) mmol/L Chloride (98-107) mmol/L Carbon Dioxide 18 L (22-30) mmol/L Creatinine (0.52-1.04) mg/dL Glucose 256 H (74-99) mg/dL POC Glucose (mg/dL) 242 H (75-99) mg/dL Calcium (8.4-10.2) mg/dL Phosphorus (2.5-4.5) mg/dL Alkaline Phosphatase 146 H (38-126) U/L Total Protein (6.3-8.2) g/dL Albumin (3.5-5.0) g/dL Urine Appearance (Clear) Urine Protein (Negative) Urine Glucose (UA) (Negative) Urine Ketones (Negative) Urine Blood (Negative) Ur Leukocyte Esterase (Negative) Urine RBC (0-5) /hpf Urine WBC (0-5) /hpf Ur Squamous Epith Cells (0-4) /hpf Urine Mucus (None) /hpf 09/12/19 09/12/19 09/12/19 Range/Units 15:35 15:35 18:20 Lymphocytes # (1.0-4.8) k/uL VBG pCO2 (37-51) mmHg VBG HCO3 (24-28) mmol/L Sodium (137-145) mmol/L Potassium (3.5-5.1) mmol/L Chloride (98-107) mmol/L Carbon Dioxide (22-30) mmol/L Creatinine (0.52-1.04) mg/dL Glucose (74-99) mg/dL POC Glucose (mg/dL) 208 H (75-99) mg/dL Calcium (8.4-10.2) mg/dL Phosphorus 1.9 L (2.5-4.5) mg/dL Alkaline Phosphatase (38-126) U/L Total Protein (6.3-8.2) g/dL Albumin (3.5-5.0) g/dL Urine Appearance Cloudy H (Clear) Urine Protein 2+ H (Negative) Urine Glucose (UA) 4+ H (Negative) Urine Ketones 4+ H (Negative) Urine Blood Moderate H (Negative) Ur Leukocyte Esterase Moderate H (Negative) Urine RBC 18 H (0-5) /hpf Urine WBC 79 H (0-5) /hpf Ur Squamous Epith Cells 7 H (0-4) /hpf Urine Mucus Occasional H (None) /hpf 09/12/19 09/12/19 09/12/19 Range/Units 19:08 19:08 19:20 Lymphocytes # (1.0-4.8) k/uL VBG pCO2 31 L (37-51) mmHg VBG HCO3 18 L (24-28) mmol/L Sodium (137-145) mmol/L Potassium 3.2 L (3.5-5.1) mmol/L Chloride 109 H (98-107) mmol/L Carbon Dioxide 19 L (22-30) mmol/L Creatinine (0.52-1.04) mg/dL Glucose 185 H (74-99) mg/dL POC Glucose (mg/dL) 200 H (75-99) mg/dL Calcium 7.7 L (8.4-10.2) mg/dL Phosphorus (2.5-4.5) mg/dL Alkaline Phosphatase (38-126) U/L Total Protein 6.2 L (6.3-8.2) g/dL Albumin 3.2 L (3.5-5.0) g/dL Urine Appearance (Clear) Urine Protein (Negative) Urine Glucose (UA) (Negative) Urine Ketones (Negative) Urine Blood (Negative) Ur Leukocyte Esterase (Negative) Urine RBC (0-5) /hpf Urine WBC (0-5) /hpf Ur Squamous Epith Cells (0-4) /hpf Urine Mucus (None) /hpf 09/12/19 09/12/19 09/13/19 Range/Units 20:02 21:08 02:44 Lymphocytes # (1.0-4.8) k/uL VBG pCO2 (37-51) mmHg VBG HCO3 (24-28) mmol/L Sodium 136 L (137-145) mmol/L Potassium (3.5-5.1) mmol/L Chloride 110 H (98-107) mmol/L Carbon Dioxide 16 L (22-30) mmol/L Creatinine 0.48 L (0.52-1.04) mg/dL Glucose 214 H (74-99) mg/dL POC Glucose (mg/dL) 135 H 103 H (75-99) mg/dL Calcium (8.4-10.2) mg/dL Phosphorus 1.9 L (2.5-4.5) mg/dL Alkaline Phosphatase (38-126) U/L Total Protein (6.3-8.2) g/dL Albumin (3.5-5.0) g/dL Urine Appearance (Clear) Urine Protein (Negative) Urine Glucose (UA) (Negative) Urine Ketones (Negative) Urine Blood (Negative) Ur Leukocyte Esterase (Negative) Urine RBC (0-5) /hpf Urine WBC (0-5) /hpf Ur Squamous Epith Cells (0-4) /hpf Urine Mucus (None) /hpf 09/13/19 09/13/19 Range/Units 06:16 11:28 Lymphocytes # (1.0-4.8) k/uL VBG pCO2 (37-51) mmHg VBG HCO3 (24-28) mmol/L Sodium (137-145) mmol/L Potassium (3.5-5.1) mmol/L Chloride (98-107) mmol/L Carbon Dioxide (22-30) mmol/L Creatinine (0.52-1.04) mg/dL Glucose (74-99) mg/dL POC Glucose (mg/dL) 187 H 206 H (75-99) mg/dL Calcium (8.4-10.2) mg/dL Phosphorus (2.5-4.5) mg/dL Alkaline Phosphatase (38-126) U/L Total Protein (6.3-8.2) g/dL Albumin (3.5-5.0) g/dL Urine Appearance (Clear) Urine Protein (Negative) Urine Glucose (UA) (Negative) Urine Ketones (Negative) Urine Blood (Negative) Ur Leukocyte Esterase (Negative) Urine RBC (0-5) /hpf Urine WBC (0-5) /hpf Ur Squamous Epith Cells (0-4) /hpf Urine Mucus (None) /hpf Microbiology - Last 24 Hours (Table) 09/12/19 15:35 Blood Culture - Final Blood 09/12/19 15:35 Urine Culture - Preliminary Urine,Voided 09/12/19 17:50 Genital Culture - Preliminary Vaginal Thrombosis Risk Factor Assmnt - Choose All That Apply Any of the Below Risk Factors Present?: Yes Each Factor Represents 1 point: Obesity (BMI >25) Thrombosis Risk Factor Assessment Total Risk Factor Score: 1 Thrombosis Risk Factor Assessment Level: Low Risk Assessment and Plan Plan: -Severe sepsis secondary to bacteremia from urinary tract infection and pyelonephritis. Repeat blood cultures will be obtained today and tomorrow we will give an additional dose of 1 more milligram of Rocephin patient was started on 2 mg of Rocephin from tomorrow repeat blood cultures tomorrow. Close clinical monitoring there is no evidence of nephrolithiasis -Anion gap metabolic acidosis mostly because of lactic acidosis although I do not have any lactic is available at this time the setting up resolved and patient has a competent of the ketosis which is intermittent anion gap as well although my suspicion is low for diabetic ketoacidosis -Type 2 diabetes mellitus uncontrolled blood sugars: Patient is probably insulin deficient but I'll start her on oral hyperglycemic agents will monitor for blood sugar control if they're not controlled patient was started on long-acting insulin. Patient is probably type 2 diabetes mellitus with the low insulin. Patient uncontrolled blood sugars are probably secondary to sepsis placement will be closely monitored as mentioned above. -DVT prophylaxis: Early ambulation GI prophylaxis Pepcid
[2019-09-13] MEDS: SODIUM CHLORIDE 0.9% 1,000 ML IV SCH (15:52)
[2019-09-13] MEDS: KETOROLAC 30 MG/ML 1 ML VIAL IVP PRN (16:56)
[2019-09-13 17:06] LABS: Glucose,Whole Blood 223 mg/dL (75-99)
[2019-09-13] MEDS: glipiZIDE 10 MG TAB PO SCH (17:43)
[2019-09-13] MEDS: FAMOTIDINE 20 MG TAB PO SCH (19:26)
[2019-09-13 20:27] LABS: Glucose,Whole Blood 230 mg/dL (75-99)
[2019-09-13 22:03] LABS: Glucose,Whole Blood 256 mg/dL (75-99)
[2019-09-13] MEDS: PIPERACILLIN-TAZOBACTAM 3.375 GM in SODIUM CHLORIDE 0.9% 100 ML IVPB SCH (23:00)
[2019-09-14] MEDS: SODIUM CHLORIDE 0.9% 1,000 ML IV SCH ×3 (03:30→23:42)
[2019-09-14] MEDS: PIPERACILLIN-TAZOBACTAM 3.375 GM in SODIUM CHLORIDE 0.9% 100 ML IVPB SCH ×3 (05:21→23:42)
[2019-09-14 07:11] LABS: Glucose,Whole Blood 210 mg/dL (75-99)
[2019-09-14] MEDS: INSULIN ASPART (NovoLOG) 100 UNIT/ML VIAL SQ SCH ×4 (09:10→21:07)
[2019-09-14] MEDS: FAMOTIDINE 20 MG TAB PO SCH ×2 (09:10→20:07)
[2019-09-14] MEDS: ACETAMINOPHEN TAB 325 MG TAB PO PRN (09:15)
[2019-09-14] MEDS: glipiZIDE 10 MG TAB PO SCH (09:37)
[2019-09-14 10:21] LABS: African American GFR (CKD) >90 (>60 ml/min/1.73 sqM); Anion Gap 12 mmol/L; Blood Urea Nitrogen 8 mg/dL (7-17); Calcium 8.7 mg/dL (8.4-10.2); Carbon Dioxide 21 mmol/L (22-30); Chloride 107 mmol/L (98-107); Glucose 253 mg/dL (74-99); Non-African American GFR(CKD) >90 (>60 ml/min/1.73 sqM); Potassium 3.5 mmol/L (3.5-5.1); Sodium 140 mmol/L (137-145)
[2019-09-14 10:32] LABS: HCT 39.8 % (34.0-46.0); HGB 12.4 gm/dL (11.4-16.0); MCH 27.2 pg (25.0-35.0); MCHC 31.2 g/dL (31.0-37.0); Mean Platelet Volume 8.3; Platelet Count 239 k/uL (150-450); RBC 4.57 m/uL (3.80-5.40); RDW 13.3 % (11.5-15.5); WBC 5.9 k/uL (3.8-10.6)
[2019-09-14 11:13] LABS: C. trachomatis,PCR Negative (Neg,Equiv); Chlamydia trachomatis Source Vagina; N. gonorrhoeae,PCR Negative (Neg,Equiv); Neisseria Source Vagina
[2019-09-14 11:55] LABS: Glucose,Whole Blood 156 mg/dL (75-99)
[2019-09-14 14:28] VITALS: BMI 39.6
--- NOTE | 2019-09-14 15:29 | P.PN ---
Subjective Progress Note Date: 09/14/19 Principal diagnosis: 34-year-old female came in with complaints of left-sided flank pain does have leukocytosis, had a fever. Patient to urine cultures and blood cultures are po sitive for gram-negative bacilli. Patient also found to have elevated blood glucose with some anion gap probably mostly secondary to lactic acidosis as some starvation ketosis related acetone elevation but patient was treated for DKA although do not believe patient has DKA. CAT scan of the abdomen did not show any cholelithiasis. Patient was bit nauseous denied any vomiting. Denied any diarrhea 09/14/2019 Patient is lying in bed stating that she feels somewhat better today but continues to have some mild left flank pain. Patient states that she is urinating and denies any dysuria or retention. Patient's blood sugars continue to be slightly elevated and will be started on a long-acting Levemir 15 units at bed along with sliding scale as needed. Will continue to monitor blood sugars closely. Awaiting urine culture finalization. Repeat blood cultures thus far have been negative for 24 hours. Will continue to monitor. Patient denies any chest pain, shortness of breath, or palpitations. Patient is occasionally having low-grade fevers. Patient denies any nausea or vomiting and is tolerating diet. Discussed with the patient about increasing her activity and ambulating. Objective - Vital Signs Vital signs: Vital Signs Temp 98.7 F 09/14/19 14:16 Pulse 85 09/14/19 14:16 Resp 16 09/14/19 14:16 BP 124/87 09/14/19 14:16 Pulse Ox 99 09/14/19 14:16 Intake & Output 09/13/19 09/14/19 09/14/19 18:59 06:59 18:59 Intake Total 775 240 Balance 775 240 Weight 104.78 kg Intake: Oral 775 240 Other: Voiding Method Toilet Toilet # Voids 1 2 2 - Exam GENERAL: The patient is alert and oriented x3, not in any acute distress. Obese HEENT: Pupils are round and equally reacting to light. EOMI. No scleral icterus. No conjunctival pallor. Normocephalic, atraumatic. No pharyngeal erythema. No thyromegaly. CARDIOVASCULAR: S1 and S2 present. No murmurs, rubs, or gallops. PULMONARY: Chest is clear to auscultation, no wheezing or crackles. ABDOMEN: Soft, non-tender, non-distended, normoactive bowel sounds. No palpable organomegaly. MUSCULOSKELETAL: No joint swelling or deformity. EXTREMITIES: No cyanosis, clubbing, or pedal edema. NEUROLOGICAL: Gross neurological examination did not reveal any focal deficits. SKIN: No rashes. - Labs CBC & Chem 7: 09/14/19 09:37 09/14/19 09:37 Labs: Abnormal Lab Results - Last 24 Hours (Table) 09/13/19 09/13/19 09/13/19 Range/Units 17:04 20:18 22:00 Carbon Dioxide (22-30) mmol/L Glucose (74-99) mg/dL POC Glucose (mg/dL) 223 H 230 H 256 H (75-99) mg/dL 09/14/19 09/14/19 09/14/19 Range/Units 07:08 09:37 11:53 Carbon Dioxide 21 L (22-30) mmol/L Glucose 253 H (74-99) mg/dL POC Glucose (mg/dL) 210 H 156 H (75-99) mg/dL Microbiology - Last 24 Hours (Table) 09/13/19 11:43 Blood Culture - Preliminary Blood No Growth after 24 hours 09/12/19 15:35 Urine Culture - Preliminary Urine,Voided Gram Neg Bacilli Strep agalactiae - (group b) 09/12/19 17:50 Genital Culture - Preliminary Vaginal Strep agalactiae - (group b) 09/12/19 15:35 Blood Culture Gram Stain - Preliminary Blood Blood Culture - Preliminary Klebsiella pneumoniae Assessment and Plan Assessment: -Severe sepsis secondary to bacteremia from urinary tract infection and p yelonephritis. Repeat blood cultures will be obtained today and tomorrow we will give an additional dose of 1 more milligram of Rocephin patient was started on 2 mg of Rocephin from tomorrow repeat blood cultures tomorrow. Close clinical monitoring there is no evidence of nephrolithiasis. -Anion gap metabolic acidosis mostly because of lactic acidosis although I do not have any lactic is available at this time the setting up resolved and patient has a component of the ketosis which is intermittent anion gap as well although my suspicion is low for diabetic ketoacidosis -Type 2 diabetes mellitus uncontrolled blood sugars: Patient is probably insulin deficient but I'll start her on oral hyperglycemic agents will monitor for blood sugar control if they're not controlled patient was started on long-acting insulin. Patient is probably type 2 diabetes mellitus with the low insulin. Patient uncontrolled blood sugars are probably secondary to sepsis placement will be closely monitored as mentioned above. -DVT prophylaxis: Early ambulation -GI prophylaxis Pepcid Plan: Repeat blood cultures thus far have been negative and will continue to monitor closely. Urine and vaginal culture preliminary showing gram-negative bacilli with strep agalactiae group B. Patient will continue on IV Rocephin at this time and awaiting culture finalization. Discussed with the patient about getting up out of the bed more often and increasing activity as tolerated with ambulating. Patient verbalized understanding. Further recommendations to follow.
[2019-09-14] MEDS: KETOROLAC 30 MG/ML 1 ML VIAL IVP PRN (16:19)
[2019-09-14 17:18] LABS: Glucose,Whole Blood 235 mg/dL (75-99)
[2019-09-14] MEDS: DOCUSATE 100 MG CAP PO SCH (17:48)
[2019-09-14 20:20] LABS: Glucose,Whole Blood 268 mg/dL (75-99)
[2019-09-14] MEDS ORDERED: INSULIN DETEMIR (LEVEMIR) 100 UNIT/ML SYR SQ SCH (21:00)
[2019-09-14 21:37] VITALS: RESP 18
[2019-09-15] MEDS: KETOROLAC 30 MG/ML 1 ML VIAL IVP PRN (03:30)
[2019-09-15 05:43] VITALS: BP 119/76; PULSE 78; TEMP 98.3
[2019-09-15] MEDS: PIPERACILLIN-TAZOBACTAM 3.375 GM in SODIUM CHLORIDE 0.9% 100 ML IVPB SCH ×2 (06:14→12:49)
[2019-09-15 07:01] LABS: Glucose,Whole Blood 178 mg/dL (75-99)
[2019-09-15 09:38] LABS: African American GFR (CKD) >90 (>60 ml/min/1.73 sqM); Anion Gap 10 mmol/L; Blood Urea Nitrogen 7 mg/dL (7-17); Calcium 8.7 mg/dL (8.4-10.2); Carbon Dioxide 25 mmol/L (22-30); Chloride 107 mmol/L (98-107); Glucose 210 mg/dL (74-99); Non-African American GFR(CKD) >90 (>60 ml/min/1.73 sqM); Potassium 3.6 mmol/L (3.5-5.1); Sodium 142 mmol/L (137-145)
[2019-09-15 09:48] LABS: HCT 38.9 % (34.0-46.0); HGB 12.4 gm/dL (11.4-16.0); MCH 27.5 pg (25.0-35.0); MCHC 31.8 g/dL (31.0-37.0); MCV 86.4 fL (80.0-100.0); Mean Platelet Volume 8.1; Platelet Count 265 k/uL (150-450); RDW 13.4 % (11.5-15.5); WBC 4.9 k/uL (3.8-10.6)
[2019-09-15 10:30] LABS: Anisocytosis (M) Present; Eosinophils # (M) 0.05 k/uL (0-0.7); Lymphocytes # (M) 1.32 k/uL (1.0-4.8); Neutrophils # (M) 3.33 k/uL (1.3-7.7); Neutrophils % (M) 68 %; Nucleated Red Blood Cells 0 /100 WBC (0-0); Total Cells Counted 100
[2019-09-15] MEDS: INSULIN ASPART (NovoLOG) 100 UNIT/ML VIAL SQ SCH ×2 (10:38→12:51)
[2019-09-15] MEDS: SODIUM CHLORIDE 0.9% 1,000 ML IV SCH (10:41)
[2019-09-15] MEDS: FAMOTIDINE 20 MG TAB PO SCH (10:41)
[2019-09-15] MEDS: DOCUSATE 100 MG CAP PO SCH (10:41)
[2019-09-15 12:06] LABS: Glucose,Whole Blood 171 mg/dL (75-99)
--- NOTE | 2019-09-15 14:07 | P.DS ---
Providers Date of admission: 09/12/19 17:52 Expected date of discharge: 09/15/19 Attending physician: Beth Dunaway Primary care physician: [facility] Course: Final diagnosis -Severe sepsis secondary to bacteremia from urinary tract infection and pyelonephritis -Anion gap metabolic acidosis mostly because of lactic acidosis -Type 2 diabetes mellitus uncontrolled blood sugars -DVT prophylaxis -GI prophylaxis Discharge disposition Patient is being discharged in a stable condition with guarded prognosis to home and will follow-up with her primary care provider upon discharge. Patient will continue with a short course of oral antibiotics in the form of Cipro twice daily for the next 10 days. She will also be going home and starting with long acting insulin basaglar 25 units at bedtime along with continuing her Glucotrol at 5 mg twice daily. Total time taken is 35 minutes. History of present illness 34-year-old female came in with complaints of left-sided flank pain does have leukocytosis, had a fever. Patient to urine cultures and blood cultures are positive for gram-negative bacilli. Patient also found to have elevated blood glucose with some anion gap probably mostly secondary to lactic acidosis as some starvation ketosis related acetone elevation but patient was treated for DKA although do not believe patient has DKA. CAT scan of the abdomen did not show any cholelithiasis. Patient was bit nauseous denied any vomiting. Denied any diarrhea 09/14/2019 Patient is lying in bed stating that she feels somewhat better today but continues to have some mild left flank pain. Patient states that she is urinating and denies any dysuria or retention. Patient's blood sugars continue to be slightly elevated and will be started on a long-acting Levemir 15 units at bed along with sliding scale as needed. Will continue to monitor blood sugars closely. Awaiting urine culture finalization. Repeat blood cultures thus far have been negative for 24 hours. Will continue to monitor. Patient denies any chest pain, shortness of breath, or palpitations. Patient is occasionally having low-grade fevers. Patient denies any nausea or vomiting and is tolerating diet. Discussed with the patient about increasing her activity and ambulating. 09/15/2019 Today patient is lying in bed stating that she feels better and is wondering when she will be discharged. Patient had some questions and concerns about antibiotics and was not sure if she received adequate antibiotic coverage during hospitalization. Discussed with the patient at length about blood cultures and her urine cultures which repeat blood cultures have been negative and her urine cultures finalized as Klebsiella pneumonia with strep agalactiae group B which is sensitive to Cipro and patient will be continuing on this oral antibiotic twice daily for the next 10 days. Also discussed with the patient and had the simulation educator follow-up she will be started on long-acting insulin basaglar 25 units at bedtime and will continue with Glucotrol 5 mg twice daily for better blood sugar control. Discussed with the patient about keeping a diary and monitoring her blood sugars before meals at bedtime and bringing that with her to her primary care follow-up visit. Currently patient denies any chest pain, shortness of breath, or palpitations. Patient is afebrile. Patient denies any nausea or vomiting and has been tolerating diet. Patient states that she has been urinating with no reports of dysuria or retention at this time. On exam vital signs are stable. Temp is 98.3F, pulse is 78, respirations are 18, blood pressure is 119/76, oxygen saturation is 98% on room air. Cardio S1, S2 are present. Respiratory system shows clear to auscultation. Abdomen is soft and nontender. Nervous system shows no focal deficits. Please refer to medication reconciliation sheet for a list of medications. Patient Condition at Discharge: Stable Plan - Discharge Summary Discharge Rx Participant: No New Discharge Prescriptions: New Ciprofloxacin HCl [Cipro] 500 mg PO BID 10 Days #20 tab Insulin Glargine [Lantus] 25 unit SQ HS 30 Days #2 vial glipiZIDE [Glucotrol] 5 mg PO BID 30 Days #60 tab Discontinued glipiZIDE [Glucotrol] 20 mg PO BID Discharge Medication List Ciprofloxacin HCl [Cipro] 500 mg PO BID 10 Days #20 tab 09/15/19 [Rx] Insulin Glargine [Lantus] 25 unit SQ HS 30 Days #2 vial 09/15/19 [Rx] glipiZIDE [Glucotrol] 5 mg PO BID 30 Days #60 tab 09/15/19 [Rx] Follow up Appointment(s)/Referral(s): Verona Chauhan MD [Primary Care Provider] - 09/21/19 1:15 pm Patient Instructions/Handouts: Diabetic Ketoacidosis (DC) Activity/Diet/Wound Care/Special Instructions: Activity limited until follow up follow up with primary care provider upon discharge continue with fluids and rest continue antibiotics until finished continue diabetic diet continue to monitor blood sugar before meals and at bedtime. keep a diary or log of blood sugar readings and bring with you to follow up ap pointment Discharge Disposition: HOME SELF-CARE
== END 2019-09-15 14:41 | disposition home or self-care (01) | DRG 872 ==
LOC: EC 14:49 → 3SCARD 17:52 → 5NMEDONC 09-13 08:42 → 6NMEDSUR 09-13 10:58
PROVIDERS: ADMIT Hospitalist; ATTEND Hospitalist
DX: A41.50 Gram-negative sepsis, unspecified (principal); N12 Tubulo-interstitial nephritis, not specified as acute or chronic; E87.2 Acidosis; R65.20 Severe sepsis without septic shock; F31.9 Bipolar disorder, unspecified; F41.9 Anxiety disorder, unspecified; F90.9 Attention-deficit hyperactivity disorder, unspecified type; E11.65 Type 2 diabetes mellitus with hyperglycemia; Z79.84 Long term (current) use of oral hypoglycemic drugs; Z83.3 Family history of diabetes mellitus; Z91.19 Patient's noncompliance with other medical treatment and regimen; D25.9 Leiomyoma of uterus, unspecified; K76.0 Fatty (change of) liver, not elsewhere classified
CPT/HCPCS: 36415; 74176; 80048; 80051; 80053; 81001; 81025; 82009; 82150; 82565; 82803; 82947; 83036; 83605; 83690; 83735; 84100; 84520; 84703; 85025; 85027; 87040; 87070; 87077; 87086; 87186; 87491; 87502; 87591; 87808; 93005; 96361; 96365; 96366; 96375; 96376; 99285

== ENCOUNTER 2019-12-10 21:58 | Inpatient (IN) | payer MEDICARE, OTHER ==
[2019-12-10] MEDS ORDERED: ACETAMINOPHEN TAB 500 MG TAB PO STA (22:47)
[2019-12-10] MEDS ORDERED: SODIUM CHLORIDE 0.9% 1,000 ML IV STA (22:49)
--- NOTE | 2019-12-10 23:16 | XR ---
EXAMINATION TYPE: XR chest 1V portable DATE OF EXAM: 12/10/2019 COMPARISON: 02/27/2015 HISTORY: Cough and short of breath TECHNIQUE: FINDINGS: There is bilateral patchy pulmonary airspace edema. Heart size is normal. I see no definite pleural effusion. IMPRESSION: Patchy bilateral airspace edema that could relate to developing RDS. Normal heart.
[2019-12-10 23:39] LABS: Basophils % (A) 0 %; Eosinophils # (A) 0.1 k/uL (0-0.7); Eosinophils % (A) 2 %; HCT 42.3 % (34.0-46.0); HGB 13.6 gm/dL (11.4-16.0); Lymphocytes # (A) 0.4 k/uL (1.0-4.8); Lymphocytes % (A) 11 %; MCH 27.7 pg (25.0-35.0); MCHC 32.1 g/dL (31.0-37.0); MCV 86.3 fL (80.0-100.0); Mean Platelet Volume 8.5; Monocytes # (A) 0.1 k/uL (0-1.0); Monocytes % (A) 2 %; Neutrophils # (A) 3.4 k/uL (1.3-7.7); Neutrophils % (A) 84 %; Platelet Count 135 k/uL (150-450); RDW 13.3 % (11.5-15.5)
[2019-12-10 23:52] LABS: ALT 17 U/L (4-34); AST 32 U/L (14-36); African American GFR (CKD) >90 (>60 ml/min/1.73 sqM); Alkaline Phosphatase 85 U/L (38-126); Anion Gap 15 mmol/L; Blood Urea Nitrogen 8 mg/dL (7-17); C Reactive Protein 78.8 mg/L (<10.0); Calcium 8.7 mg/dL (8.4-10.2); Carbon Dioxide 18 mmol/L (22-30); Chloride 101 mmol/L (98-107); Glucose 251 mg/dL (74-99); LDH 880 U/L (313-618); Magnesium 1.8 mg/dL (1.6-2.3); Non-African American GFR(CKD) >90 (>60 ml/min/1.73 sqM); Potassium 3.6 mmol/L (3.5-5.1); Sodium 134 mmol/L (137-145); Total Bilirubin 0.6 mg/dL (0.2-1.3); Total Protein 7.4 g/dL (6.3-8.2)
[2019-12-11 00:01] LABS: INR 1.1 (<1.2); Prothrombin Time 10.9 sec (9.0-12.0)
[2019-12-11 00:02] LABS: Partial Thromboplastin Time 19.6 sec (22.0-30.0)
[2019-12-11] MEDS ORDERED: AZITHROMYCIN 500 MG in SODIUM CHLORIDE 0.9% 250 ML IVPB STA (00:19)
[2019-12-11] MEDS ORDERED: cefTRIAXone IN SWFI 1,000 MG/10 ML SYRINGE IVP STA (00:19)
[2019-12-11] MEDS ORDERED: SODIUM CHLORIDE 0.9% 1,000 ML IV STA (00:39)
[2019-12-11] MEDS ORDERED: PNEUMONIA PROTOCOL UTILIZED 1 EACH MISC PO PRN (00:41)
--- NOTE | 2019-12-11 00:41 | ED ---
General Adult HPI - General Source: EMS, RN notes reviewed Mode of arrival: EMS Limitations: no limitations <Ramon Reno - Last Filed: 12/11/19 00:33> <Theresa Salmeron - Last Filed: 12/12/19 01:03> - General Chief complaint: Shortness of Breath Stated complaint: SOB Time Seen by Provider: 12/10/19 22:22 - History of Present Illness Initial comments: 34-year-old female presents to the emergency department for a chief complaint of cough and shortness of breath. Patient states that she has had a cough interni st breath for about a week with associated fevers. States this started last Thursday. Patient states she saw her doctor on and was started on Levaquin for pneumonia. She states her doctor wanted her to go to the hospital but she did not want to. Patient states that she thinks she could have coronavirus. States she thinks she may have been exposed by her who was at a where people had it. Patient states she did go to [facility] Thursday.Patient has no other complaints at this time including chest pain, abdominal pain, nausea or vomiting, headache, or visual changes. (Ramon Reno) - Related Data Home Medications Medication Instructions Recorded Confirmed glipiZIDE [Glucotrol] 20 mg PO BID 12/11/19 12/11/19 Allergies Allergy/AdvReac Type Severity Reaction Status Date / Time Fish Containing Products Allergy Nausea & Verified 12/11/19 09:57 [Fish] Vomiting & Diarrhea milk Allergy Nausea & Verified 12/11/19 09:57 Vomiting & Diarrhea Pork/Porcine Containing AdvReac Nausea & Verified 12/11/19 09:57 Products Vomiting & [Pork] Diarrhea shellfish derived [Shellfish] AdvReac Anaphylaxis Verified 12/11/19 09:57 Review of Systems ROS Other: All systems not noted in ROS Statement are negative. <Ramon Reno - Last Filed: 12/11/19 00:33> ROS Other: All systems not noted in ROS Statement are negative. <Theresa Salmeron - Last Filed: 12/12/19 01:03> ROS Statement: Those systems with pertinent positive or pertinent negative responses have been documented in the HPI. Past Medical History Past Medical History: Diabetes Mellitus Additional Past Medical History / Comment(s): 4 spontaneous vaginal deliveries. Patient's history is significant for noncompliance and history of positive group B strep. History of Any Multi-Drug Resistant Organisms: None Reported Past Surgical History: No Surgical Hx Reported Past Anesthesia/Blood Transfusion Reactions: No Reported Reaction Past Psychological History: ADD/ADHD, Anxiety, Bipolar Smoking Status: Never smoker Past Alcohol Use History: None Reported Past Drug Use History: None Reported - Past Family History Mother Family Medical History: Diabetes Mellitus <Ramon Reno - Last Filed: 12/11/19 00:33> General Exam Limitations: no limitations <Ramon Reno - Last Filed: 12/11/19 00:33> Course Vital Signs 12/10/19 12/10/19 12/10/19 22:01 23:45 23:57 Temperature 103.8 F H 102 F H Pulse Rate 102 H 95 Respiratory 22 22 Rate Blood Pressure 126/68 120/72 O2 Sat by Pulse 94 L 100 Oximetry 12/11/19 12/11/19 12/11/19 00:45 00:49 01:19 Temperature Pulse Rate 82 82 Respiratory 20 20 Rate Blood Pressure 109/62 105/60 O2 Sat by Pulse 93 L 99 99 Oximetry 12/11/19 12/11/19 01:55 02:14 Temperature 98.8 F 100.3 F H Pulse Rate Respiratory 18 Rate Blood Pressure O2 Sat by Pulse Oximetry Medical Decision Making - Lab Data Result diagrams: 12/10/19 23:24 12/10/19 23:24 <Ramon Reno - Last Filed: 12/11/19 00:33> - Lab Data Result diagrams: 12/11/19 08:54 12/11/19 08:54 <Theresa Salmeron - Last Filed: 12/12/19 01:03> - Medical Decision Making Vitals are stable however patient does have a 103.8 temperature. She was given Tylenol. Which did improve her temperature to 102. She was not given Motrin given current recommendations. Lungs do sound coarse. She is not in respiratory distress. She is resting comfortably. CBC is unremarkable. She does have hyperglycemia evident. CRP 78.8. Coronavirus is detected. Chest x-r ay does show patchy bilateral airspace edema but could relate to developing RDS. At this time patient was put on Rocephin and azithromycin. She will be admitted for further management. (Ramon Reno) I was available for consultation in the emergency department. The history and physical exam were done by the midlevel provider. I was consulted for this patients care. I reviewed the case with the midlevel provider and based on their presentation of the patient, I agree with the assessment, medical decision making and plan of care as documented. The patient was admitted to [facility]. I discussed the case with Dr. Chance. Chart was dictated using [employer] dictation software. Attempts were made to correct any dictation errors however some typographical errors may persist. The patient was seen during the [facility] emergency due to the Covid-19 pandemic. (Theresa Salmeron) - Lab Data Lab Results 12/10/19 12/10/19 12/10/19 Range/Units 23:24 23:24 23:24 WBC 4.0 (3.8-10.6) k/uL RBC 4.90 (3.80-5.40) m/uL Hgb 13.6 (11.4-16.0) gm/dL Hct 42.3 (34.0-46.0) % MCV 86.3 (80.0-100.0) fL MCH 27.7 (25.0-35.0) pg MCHC 32.1 (31.0-37.0) g/dL RDW 13.3 (11.5-15.5) % Plt Count 135 L (150-450) k/uL Neutrophils % 84 % Lymphocytes % 11 % Monocytes % 2 % Eosinophils % 2 % Basophils % 0 % Neutrophils # 3.4 (1.3-7.7) k/uL Lymphocytes # 0.4 L (1.0-4.8) k/uL Monocytes # 0.1 (0-1.0) k/uL Eosinophils # 0.1 (0-0.7) k/uL Basophils # 0.0 (0-0.2) k/uL PT 10.9 (9.0-12.0) sec INR 1.1 (<1.2) APTT 19.6 L (22.0-30.0) sec Sodium 134 L (137-145) mmol/L Potassium 3.6 (3.5-5.1) mmol/L Chloride 101 (98-107) mmol/L Carbon Dioxide 18 L (22-30) mmol/L Anion Gap 15 mmol/L BUN 8 (7-17) mg/dL Creatinine 0.54 (0.52-1.04) mg/dL Est GFR (CKD-EPI)AfAm >90 (>60 ml/min/1.73 sqM) Est GFR (CKD-EPI)NonAf >90 (>60 ml/min/1.73 sqM) Glucose 251 H (74-99) mg/dL Plasma Lactic Acid Sher (0.7-2.0) mmol/L Calcium 8.7 (8.4-10.2) mg/dL Magnesium 1.8 (1.6-2.3) mg/dL Total Bilirubin 0.6 (0.2-1.3) mg/dL AST 32 (14-36) U/L ALT 17 (4-34) U/L Alkaline Phosphatase 85 (38-126) U/L Lactate Dehydrogenase 880 H (313-618) U/L C-Reactive Protein 78.8 H (<10.0) mg/L Total Protein 7.4 (6.3-8.2) g/dL Albumin 4.0 (3.5-5.0) g/dL Acetone, Qual Negative (Negative) Coronavirus (PCR) (Not Detectd) Influenza Type A RNA (Not Detectd) Influenza Type B (PCR) (Not Detectd) 12/10/19 12/10/19 Range/Units 23:24 23:24 WBC (3.8-10.6) k/uL RBC (3.80-5.40) m/uL Hgb (11.4-16.0) gm/dL Hct (34.0-46.0) % MCV (80.0-100.0) fL MCH (25.0-35.0) pg MCHC (31.0-37.0) g/dL RDW (11.5-15.5) % Plt Count (150-450) k/uL Neutrophils % % Lymphocytes % % Monocytes % % Eosinophils % % Basophils % % Neutrophils # (1.3-7.7) k/uL Lymphocytes # (1.0-4.8) k/uL Monocytes # (0-1.0) k/uL Eosinophils # (0-0.7) k/uL Basophils # (0-0.2) k/uL PT (9.0-12.0) sec INR (<1.2) APTT (22.0-30.0) sec Sodium (137-145) mmol/L Potassium (3.5-5.1) mmol/L Chloride (98-107) mmol/L Carbon Dioxide (22-30) mmol/L Anion Gap mmol/L BUN (7-17) mg/dL Creatinine (0.52-1.04) mg/dL Est GFR (CKD-EPI)AfAm (>60 ml/min/1.73 sqM) Est GFR (CKD-EPI)NonAf (>60 ml/min/1.73 sqM) Glucose (74-99) mg/dL Plasma Lactic Acid Sher 0.6 L (0.7-2.0) mmol/L Calcium (8.4-10.2) mg/dL Magnesium (1.6-2.3) mg/dL Total Bilirubin (0.2-1.3) mg/dL AST (14-36) U/L ALT (4-34) U/L Alkaline Phosphatase (38-126) U/L Lactate Dehydrogenase (313-618) U/L C-Reactive Protein (<10.0) mg/L Total Protein (6.3-8.2) g/dL Albumin (3.5-5.0) g/dL Acetone, Qual (Negative) Coronavirus (PCR) Detected A (Not Detectd) Influenza Type A RNA Not Detected (Not Detectd) Influenza Type B (PCR) Not Detected (Not Detectd) Disposition Is patient prescribed a controlled substance at d/c from ED?: No Time of Disposition: 00:41 <Ramon Reno P - Last Filed: 12/11/19 00:33> <Theresa Salmeron A - Last Filed: 12/12/19 01:03> Clinical Impression: Bilateral pneumonia, COVID-19, Hyperglycemia, Tachypnea Disposition: ADMITTED IP TO THIS HOSP
[2019-12-11 07:24] LABS: Glucose,Whole Blood 256 mg/dL (75-99)
[2019-12-11] MEDS: INSULIN ASPART (NovoLOG) 100 UNIT/ML VIAL SQ SCH ×4 (08:02→20:41)
[2019-12-11 09:24] LABS: Basophils % (A) 0 %; Eosinophils % (A) 0 %; HCT 38.5 % (34.0-46.0); HGB 13.1 gm/dL (11.4-16.0); Lymphocytes # (A) 0.4 k/uL (1.0-4.8); Lymphocytes % (A) 10 %; MCH 28.1 pg (25.0-35.0); MCHC 34.1 g/dL (31.0-37.0); MCV 82.4 fL (80.0-100.0); Mean Platelet Volume 8.1; Monocytes # (A) 0.1 k/uL (0-1.0); Monocytes % (A) 2 %; Neutrophils # (A) 3.7 k/uL (1.3-7.7); Neutrophils % (A) 87 %; Platelet Count 137 k/uL (150-450); RBC 4.67 m/uL (3.80-5.40); RDW 13.4 % (11.5-15.5); WBC 4.2 k/uL (3.8-10.6)
[2019-12-11 09:31] LABS: African American GFR (CKD) >90 (>60 ml/min/1.73 sqM); Anion Gap 13 mmol/L; Blood Urea Nitrogen 7 mg/dL (7-17); Calcium 8.1 mg/dL (8.4-10.2); Carbon Dioxide 20 mmol/L (22-30); Chloride 104 mmol/L (98-107); Glucose 289 mg/dL (74-99); LDH 814 U/L (313-618); Magnesium 1.8 mg/dL (1.6-2.3); Non-African American GFR(CKD) >90 (>60 ml/min/1.73 sqM); Potassium 3.7 mmol/L (3.5-5.1); Sodium 137 mmol/L (137-145)
[2019-12-11 09:46] LABS: C Reactive Protein 151.9 mg/L (<10.0)
[2019-12-11] MEDS: methylPREDNISolone SOD SUCCI 40 MG/ML 1 ML VIAL IV SCH ×2 (10:30→20:41)
[2019-12-11] MEDS: ACETAMINOPHEN TAB 325 MG TAB PO PRN ×2 (10:30→20:52)
[2019-12-11 10:33] LABS: HCG,Qualitative Serum Not Detected
[2019-12-11 12:04] LABS: Glucose,Whole Blood 242 mg/dL (75-99)
--- NOTE | 2019-12-11 13:43 | P.CNPUL ---
History of Present Illness Consult date: 12/11/19 Requesting physician: Lelia Chance Reason for consult: dyspnea, abnormal CXR/CT Chief complaint: Shortness of breath, weakness and fatigue, diarrhea History of present illness: This is a very pleasant 34-year-old -[place] female patient who follows with Dr. Verona Dunaway as her primary care provider. She has a history of obesity, ADHD, anxiety, bipolar disorder, diabetes mellitus and is maintained on glipizide in the outpatient setting. Former smoker. She presented here to the emergency room yesterday after a one-week history of increasing shortness of breath, cough and congestion. She also was having issues with diarrhea. She did see her PCP on 12/08/2019 and was initiated on Levaquin for suspected pneumonia. She states her doctor did want her to go to the hospital that she did not at that time. She feels she may have picked it up from her who was at a where people had it she also had been to [place] last week. She began developing symptoms after that. She states her is also home sick. She did test positive for the jorgensen virus. Chest x-ray revealed patchy bilateral airspace disease. We're consulted for the same. She is seen today on the regular medical floor. She is awake and alert in no acute distress. She is sitting up at the bedside. She does have a loose nonproductive cough. She is dyspneic with minimal conversation and exertion. She is maintaining O2 saturations in the 90s on 2 L/m per nasal cannula. Current temperature 102.8. She is slightly tachycardic. Blood pressure stable. White count 4.2. Hemoglo bin 13.1. Platelets 137. Lymphocytes 0.4. D-dimer 0.90. Sodium 137. Potassium 3.7. Bicarb 20. Creatinine 0.64. Glucose 289. LDH 814. C-reactive protein 151. Ferritin is pending. Lactic acid 0.6. She has been initiated on Plaquenil, and ceftriaxone. She did receive 1 dose of azithromycin today. EKG with QT interval less than 500 ms. Review of Systems REVIEW OF SYSTEMS: CONSTITUTIONAL: Denies any recent significant weight loss or weight gain. EYES: Denies change in vision. EARS, NOSE, MOUTH, THROAT: Positive headaches, denies sore throat. CARDIOVASCULAR: Denies chest pain, palpitations or syncopal episodes. RESPIRATORY: Positive shortness of breath, cough, congestion no hemoptysis. GASTROINTESTINAL: Positive diarrhea GENITOURINARY: Denies hematuria, denies infections. MUSKULOSKELETAL: Denies pain, denies swelling. INTEGUMENTARY: Denies rash, denies eczema. NEUROLOGICAL: Denies recent memory loss, no recent seizure activity. PSYCHIATRIC: Denies anxiety, denies depression. HEMATOLOGIC/LYMPHATIC: Denies anemia, denies enlarged lymph nodes. Past Medical History Past Medical History: Diabetes Mellitus Additional Past Medical History / Comment(s): 4 spontaneous vaginal deliveries. Patient's history is significant for noncompliance and history of positive group B strep. History of Any Multi-Drug Resistant Organisms: None Reported Past Surgical History: No Surgical Hx Reported Past Anesthesia/Blood Transfusion Reactions: No Reported Reaction Past Psychological History: ADD/ADHD, Anxiety, Bipolar Smoking Status: Former smoker Past Alcohol Use History: None Reported Past Drug Use History: None Reported - Past Family History Mother Family Medical History: Diabetes Mellitus Medications and Allergies Home Medications Medication Instructions Recorded Confirmed Type glipiZIDE [Glucotrol] 20 mg PO BID 12/11/19 12/11/19 History Allergies Allergy/AdvReac Type Severity Reaction Status Date / Time Fish Containing Products Allergy Nausea & Verified 12/11/19 09:57 [Fish] Vomiting & Diarrhea milk Allergy Nausea & Verified 12/11/19 09:57 Vomiting & Diarrhea Pork/Porcine Containing AdvReac Nausea & Verified 12/11/19 09:57 Products Vomiting & [Pork] Diarrhea shellfish derived [Shellfish] AdvReac Anaphylaxis Verified 12/11/19 09:57 Physical Exam Vitals: Vital Signs Temp Pulse Pulse Resp BP BP Pulse Ox 12/11/19 11:00 102.8 F H 112 H 18 117/77 92 L 12/11/19 07:45 18 12/11/19 07:26 101.3 F H 100 18 112/77 97 12/11/19 05:07 18 12/11/19 02:43 18 12/11/19 02:14 100.3 F H 12/11/19 01:55 98.8 F 18 12/11/19 01:19 82 20 105/60 99 12/11/19 00:49 82 20 109/62 99 12/11/19 00:45 93 L 12/10/19 23:57 102 F H 12/10/19 23:45 95 22 120/72 100 12/10/19 22:01 103.8 F H 102 H 22 126/68 94 L Intake and Output 12/10/19 12/11/19 12/11/19 22:59 06:59 14:59 Intake Total 118 Balance 118 Intake: Oral 118 Other: Weight 104.78 kg 104.78 kg GENERAL EXAM: Alert, pleasant 34-year-old -[place] female, on 2 L nasal cannula, fairly comfortable in no apparent distress. HEAD: Normocephalic. EYES: Normal reaction of pupils, equal size. NOSE: Clear with pink turbinates. THROAT: No erythema or exudates. NECK: No masses, no JVD. CHEST: No chest wall deformity. LUNGS: Equal air entry with bilateral scattered rhonchi. CVS: S1 and S2 normal with no audible murmur, regular rhythm. ABDOMEN: No hepatosplenomegaly, normal bowel sounds, no guarding or rigidity. SPINE: No scoliosis or deformity SKIN: No rashes CENTRAL NERVOUS SYSTEM: No focal deficits, tone is normal in all 4 extremities. EXTREMITIES: There is no peripheral edema. No clubbing, no cyanosis. Peripheral pulses are intact. Results - Laboratory Findings CBC and BMP: 12/11/19 08:54 12/11/19 08:54 PT/INR, D-dimer PT 10.9 sec (9.0-12.0) 12/10/19 23:24 INR 1.1 (<1.2) 12/10/19 23:24 D-Dimer 0.90 mg/L FEU (<0.60) H 12/11/19 10:10 Abnormal lab findings: Abnormal Labs 12/10/19 12/10/19 12/10/19 23:24 23:24 23:24 Plt Count 135 L Lymphocytes # 0.4 L APTT 19.6 L D-Dimer Sodium 134 L Carbon Dioxide 18 L Glucose 251 H POC Glucose (mg/dL) Plasma Lactic Acid Sher Calcium Lactate Dehydrogenase 880 H C-Reactive Protein 78.8 H Coronavirus (PCR) 12/10/19 12/10/19 12/11/19 23:24 23:24 07:23 Plt Count Lymphocytes # APTT D-Dimer Sodium Carbon Dioxide Glucose POC Glucose (mg/dL) 256 H Plasma Lactic Acid Sher 0.6 L Calcium Lactate Dehydrogenase C-Reactive Protein Coronavirus (PCR) Detected A 12/11/19 12/11/19 12/11/19 08:54 08:54 10:10 Plt Count 137 L Lymphocytes # 0.4 L APTT D-Dimer 0.90 H Sodium Carbon Dioxide 20 L Glucose 289 H POC Glucose (mg/dL) Plasma Lactic Acid Sher Calcium 8.1 L Lactate Dehydrogenase 814 H C-Reactive Protein 151.9 H Coronavirus (PCR) 12/11/19 12:03 Plt Count Lymphocytes # APTT D-Dimer Sodium Carbon Dioxide Glucose POC Glucose (mg/dL) 242 H Plasma Lactic Acid Sher Calcium Lactate Dehydrogenase C-Reactive Protein Coronavirus (PCR) - Diagnostic Findings Chest x-ray: image reviewed Assessment and Plan Assessment: 1 Acute CoVID 19 pneumonia, chest x-ray reveals patchy bilateral airspace disease. 2 Febrile illness secondary to above 3 Diarrhea secondary to above 4 Elevated LDH, C-reactive protein, d-dimer. Ferritin pending. Secondary to above 5 Diabetes mellitus 6 Obesity 7 ADHD 8 History of anxiety 9 History of bipolar disorder Plan: The patient was seen and evaluated by Dr. Mohr Chest x-ray and labs reviewed Continue Plaquenil and ceftriaxone Discontinue azithromycin Add IV Solu-Medrol Add vitamin C and zinc We'll continue to monitor her oxygen saturations closely Follow-up labs in the a.m. We will continue to follow and make further recommendations based on her clini yue status I, the cosigning physician, performed a history & physical examination of the patient. Lungs sounds with bilateral scattered rhonchi. Maintaining good O2 saturations in the 90s on 2 L/m per nasal cannula. I discussed the assessment and plan of care with my nurse practitioner, Aletha Augustin. I attest to the above consultation as dictated by her. Time with Patient: Greater than 30
[2019-12-11] MEDS: ZINC SULFATE 220 MG CAP PO SCH (16:09)
[2019-12-11] MEDS: ENOXAPARIN 40 MG/0.4 ML SYRINGE SQ SCH (16:09)
[2019-12-11] MEDS: ASCORBIC ACID 500 MG TAB PO SCH (16:09)
[2019-12-11 17:07] LABS: Glucose,Whole Blood 288 mg/dL (75-99)
[2019-12-11 20:24] LABS: Glucose,Whole Blood 291 mg/dL (75-99)
[2019-12-11] MEDS: HYDROXYCHLOROQUINE SULFATE 200 MG TAB PO SCH (20:41)
[2019-12-11] MEDS ORDERED: ENOXAPARIN 100 MG/ML SYRINGE SQ SCH (21:00)
[2019-12-11] MEDS ORDERED: AZITHROMYCIN 500 MG in SODIUM CHLORIDE 0.9% 250 ML IVPB SCH (23:00)
--- NOTE | 2019-12-11 23:37 | P.HPIM ---
History of Present Illness H&P Date: 12/11/19 Chief Complaint: Shortness of breath Patient is a 34 pound female with a known history of diabetes type 2 [id number], morbid obesity with BMI 39.7, 80/ADHD, anxiety/bipolar disorder and previous history of smoking came to ER with complaints of worsening shortness of breath and exertional dyspnea for the past 1 week. Patient was seen by her PCP on 12/08/2019 when she had chest x-ray which was suspicious for covid 19 pneumonia. Covid 19 test was sent. Patient was given a dose of ceftriaxone in the clinic and was given prescription for levofloxacin. Patient was advised to go to Hospital at the time but patient went home at the time. Patient has been having worsening shortness of breath, fevers and also episodes of diarrhea which made her to come to ER. Patient was tested for positive covid 19. Denied any chest pain. No headache. Patient says that her was sick couple weeks ago and later her kids were sick. Patient has been having symptoms for the past 5-7 days. Patient since that her might have picked up while he was at a in [place]. Patient says that her is still sick at home but improving. Summers virus PCR test was positive in the ER. Chest x-ray showed patchy bilateral airspace disease. Patient is currently on oxygen 2 L where nasal cannula. T-max was 102.8 patient is tachycardic. There was a 4.2, hemoglobin 13.1 and platelets 137 lymphocytes 0.4 D-dimer is slightly elevated 0.9, sodium 137, potassium 3.7, bicarb is 20, creatinine 0.64 blood sugar is elevated to 89, LDH 814 CRP is 151 and ferritin is pending. Lactic acid 0.8. QT interval is around 350 ms. Review of Systems Constitutional: Patient does have fevers. Denied any chills. . Generalized weakness and malaise. Abdomen: Patient denied nausea vomiting and abdominal pain. Does have diarrhea. Cardiovascular: Patient denies any chest pain. Positive for short of breath no palpitations. No leg swelling Respiratory: Cough without sputum production. Positive shortness of breath Neurologic: Patient denied any numbness or tingling headache. Musculoskeletal: Patient denies any complaints of joint swelling or deformity. Skin: Negative Psychiatric: Negative Endocrine: No heat or cold intolerance. No recent weight gain. Genitourinary: No dysuria or hematuria. All other 14 point ROS negative except the above Past Medical History Past Medical History: Diabetes Mellitus Additional Past Medical History / Comment(s): 4 spontaneous vaginal deliveries. Patient's history is significant for noncompliance and history of positive group B strep. History of Any Multi-Drug Resistant Organisms: None Reported Past Surgical History: No Surgical Hx Reported Past Anesthesia/Blood Transfusion Reactions: No Reported Reaction Past Psychological History: ADD/ADHD, Anxiety, Bipolar Smoking Status: Former smoker Past Alcohol Use History: None Reported Past Drug Use History: None Reported - Past Family History Mother Family Medical History: Diabetes Mellitus Medications and Allergies Home Medications Medication Instructions Recorded Confirmed Type glipiZIDE [Glucotrol] 20 mg PO BID 12/11/19 12/11/19 History Allergies Allergy/AdvReac Type Severity Reaction Status Date / Time Fish Containing Products Allergy Nausea & Verified 12/11/19 09:57 [Fish] Vomiting & Diarrhea milk Allergy Nausea & Verified 12/11/19 09:57 Vomiting & Diarrhea Pork/Porcine Containing AdvReac Nausea & Verified 12/11/19 09:57 Products Vomiting & [Pork] Diarrhea shellfish derived [Shellfish] AdvReac Anaphylaxis Verified 12/11/19 09:57 Physical Exam Vitals: Vital Signs Temp Pulse Pulse Resp BP BP Pulse Ox 12/11/19 20:53 102.2 F H 93 20 103/54 95 12/11/19 17:47 98.0 F 12/11/19 15:00 99.5 F 91 18 104/69 95 12/11/19 11:00 102.8 F H 112 H 18 117/77 92 L 12/11/19 07:45 18 12/11/19 07:26 101.3 F H 100 18 112/77 97 12/11/19 05:07 18 12/11/19 02:43 18 12/11/19 02:14 100.3 F H 12/11/19 01:55 98.8 F 18 12/11/19 01:19 82 20 105/60 99 12/11/19 00:49 82 20 109/62 99 12/11/19 00:45 93 L 12/10/19 23:57 102 F H 12/10/19 23:45 95 22 120/72 100 12/10/19 22:01 103.8 F H 102 H 22 126/68 94 L Intake and Output 12/11/19 12/11/19 12/11/19 06:59 14:59 22:59 Intake Total 414 Balance 414 Intake: Oral 414 Other: # Voids 1 Weight 104.78 kg PHYSICAL EXAMINATION: Patient is lying in the bed comfortably, no acute distress, awake alert and oriented.. HEENT: Normocephalic. Neck is supple. Pupils reactive. Nostrils clear. Oral cavity is moist. Ears reveal no drainage. Neck reveals no JVD, carotid bruits, or thyromegaly. CHEST EXAMINATION: Trachea is central. Symmetrical expansion. Lung [place] clear to auscultation and percussion. CARDIAC: Normal S1, S2 with no gallops. No murmurs ABDOMEN: Soft. Bowel sounds normal. No organomegaly. No abdominal bruits. Extremities: reveal no edema. No clubbing or cyanosis Neurologically awake, alert, oriented x3 with well-coordinated movements. No focal deficits noted Skin: No rash or skin lesions. Psychiatric: Coperative. Nonsuicidal Musculoskeletal: No joint swelling or deformity. Normal range of motion. Results CBC & Chem 7: 12/11/19 08:54 12/11/19 08:54 Labs: Abnormal Lab Results - Last 24 Hours (Table) 12/10/19 12/10/19 12/10/19 Range/Units 23:24 23:24 23:24 Plt Count 135 L (150-450) k/uL Lymphocytes # 0.4 L (1.0-4.8) k/uL APTT 19.6 L (22.0-30.0) sec D-Dimer (<0.60) mg/L FEU Sodium 134 L (137-145) mmol/L Carbon Dioxide 18 L (22-30) mmol/L Glucose 251 H (74-99) mg/dL POC Glucose (mg/dL) (75-99) mg/dL Plasma Lactic Acid Sher (0.7-2.0) mmol/L Calcium (8.4-10.2) mg/dL Lactate Dehydrogenase 880 H (313-618) U/L C-Reactive Protein 78.8 H (<10.0) mg/L Coronavirus (PCR) (Not Detectd) 12/10/19 12/10/19 12/11/19 Range/Units 23:24 23:24 07:23 Plt Count (150-450) k/uL Lymphocytes # (1.0-4.8) k/uL APTT (22.0-30.0) sec D-Dimer (<0.60) mg/L FEU Sodium (137-145) mmol/L Carbon Dioxide (22-30) mmol/L Glucose (74-99) mg/dL POC Glucose (mg/dL) 256 H (75-99) mg/dL Plasma Lactic Acid Sher 0.6 L (0.7-2.0) mmol/L Calcium (8.4-10.2) mg/dL Lactate Dehydrogenase (313-618) U/L C-Reactive Protein (<10.0) mg/L Coronavirus (PCR) Detected A (Not Detectd) 12/11/19 12/11/19 12/11/19 Range/Units 08:54 08:54 10:10 Plt Count 137 L (150-450) k/uL Lymphocytes # 0.4 L (1.0-4.8) k/uL APTT (22.0-30.0) sec D-Dimer 0.90 H (<0.60) mg/L FEU Sodium (137-145) mmol/L Carbon Dioxide 20 L (22-30) mmol/L Glucose 289 H (74-99) mg/dL POC Glucose (mg/dL) (75-99) mg/dL Plasma Lactic Acid Sher (0.7-2.0) mmol/L Calcium 8.1 L (8.4-10.2) mg/dL Lactate Dehydrogenase 814 H (313-618) U/L C-Reactive Protein 151.9 H (<10.0) mg/L Coronavirus (PCR) (Not Detectd) 12/11/19 12/11/19 12/11/19 Range/Units 12:03 17:06 20:21 Plt Count (150-450) k/uL Lymphocytes # (1.0-4.8) k/uL APTT (22.0-30.0) sec D-Dimer (<0.60) mg/L FEU Sodium (137-145) mmol/L Carbon Dioxide (22-30) mmol/L Glucose (74-99) mg/dL POC Glucose (mg/dL) 242 H 288 H 291 H (75-99) mg/dL Plasma Lactic Acid Sher (0.7-2.0) mmol/L Calcium (8.4-10.2) mg/dL Lactate Dehydrogenase (313-618) U/L C-Reactive Protein (<10.0) mg/L Coronavirus (PCR) (Not Detectd) Thrombosis Risk Factor Assmnt - Choose All That Apply Any of the Below Risk Factors Present?: No Other Risk Factors: No Thrombosis Risk Factor Assessment Level: Very Low Risk Assessment and Plan Assessment: Acute covid 19 pneumonia with patchy bilateral air space disease on the chest x- ray. Elevated inflammatory markers including LDH, CRP, d-dimer due to above and ferritin level is pending. Uncontrolled diabetes type 2 with hyperglycemia. [id number] Morbid obesity BMI 39.7 Noncompliance with medications. Anxiety/bipolar disorder ADD/ADHD DVT prophylaxis on Lovenox Plan: Patient will be continued on contact and droplet precautions. Started on Levaquin, IV steroids and Lovenox prophylaxis. Was started on ceftriaxone. Patient will be continued on his to sliding scale and Levemir 10 units will be admitted tonight due to hyperglycemia. Albuterol MDI as needed. Pulmonary is on board. Further recommendations based on the clinical course. Continue with oxygen therapy and monitor closely. Time with Patient: Greater than 30
[2019-12-12 01:18] LABS: Glucose,Whole Blood 229 mg/dL (75-99)
[2019-12-12] MEDS: INSULIN DETEMIR (LEVEMIR) 100 UNIT/ML SYR SQ SCH ×2 (01:18→21:05)
[2019-12-12 06:45] LABS: Glucose,Whole Blood 285 mg/dL (75-99)
[2019-12-12] MEDS: INSULIN ASPART (NovoLOG) 100 UNIT/ML VIAL SQ SCH ×4 (07:11→21:05)
[2019-12-12 07:22] LABS: Basophils % (A) 0 %; Eosinophils # (A) 0.1 k/uL (0-0.7); Eosinophils % (A) 1 %; HCT 40.4 % (34.0-46.0); HGB 13.1 gm/dL (11.4-16.0); Hypochromasia Slight; Lymphocytes # (A) 0.4 k/uL (1.0-4.8); Lymphocytes % (A) 6 %; MCH 27.9 pg (25.0-35.0); MCHC 32.5 g/dL (31.0-37.0); MCV 85.9 fL (80.0-100.0); Mean Platelet Volume 8.7; Monocytes # (A) 0.1 k/uL (0-1.0); Monocytes % (A) 2 %; Neutrophils # (A) 6.8 k/uL (1.3-7.7); Neutrophils % (A) 91 %; Platelet Count 154 k/uL (150-450); RBC 4.71 m/uL (3.80-5.40); RDW 13.9 % (11.5-15.5); WBC 7.5 k/uL (3.8-10.6)
[2019-12-12 07:34] LABS: African American GFR (CKD) >90 (>60 ml/min/1.73 sqM); Anion Gap 17 mmol/L; Blood Urea Nitrogen 9 mg/dL (7-17); Calcium 8.8 mg/dL (8.4-10.2); Carbon Dioxide 14 mmol/L (22-30); Chloride 106 mmol/L (98-107); Glucose 290 mg/dL (74-99); LDH 1117 U/L (313-618); Magnesium 2.2 mg/dL (1.6-2.3); Non-African American GFR(CKD) >90 (>60 ml/min/1.73 sqM); Sodium 137 mmol/L (137-145)
[2019-12-12] MEDS: HYDROXYCHLOROQUINE SULFATE 200 MG TAB PO SCH ×2 (08:11→21:05)
[2019-12-12] MEDS: ASCORBIC ACID 500 MG TAB PO SCH (08:11)
[2019-12-12] MEDS: ENOXAPARIN 40 MG/0.4 ML SYRINGE SQ SCH ×2 (08:11→21:04)
[2019-12-12] MEDS: methylPREDNISolone SOD SUCCI 40 MG/ML 1 ML VIAL IV SCH ×2 (08:12→21:05)
[2019-12-12] MEDS: ZINC SULFATE 220 MG CAP PO SCH (08:12)
[2019-12-12 08:46] LABS: C Reactive Protein 202.3 mg/L (<10.0)
[2019-12-12 10:48] LABS: Ferritin 231.9 ng/mL (10.0-291.0)
[2019-12-12 10:49] LABS: Ferritin 224.7 ng/mL (10.0-291.0)
[2019-12-12 11:17] LABS: Glucose,Whole Blood 293 mg/dL (75-99)
--- NOTE | 2019-12-12 11:38 | P.PN ---
Subjective Progress Note Date: 12/12/19 Principal diagnosis: Acute COVID 19 pneumonia This is a very pleasant 34-year-old -[place] female patient who follows with Dr. Verona Dunaway as her primary care provider. She has a history of obesity, ADHD, anxiety, bipolar disorder, diabetes mellitus and is maintained on glipizide in the outpatient setting. Former smoker. She presented here to the emergency room yesterday after a one-week history of increasing shortness of breath, cough and congestion. She also was having issues with diarrhea. She did see her PCP on 12/08/2019 and was initiated on Levaquin for suspected pneumonia. She states her doctor did want her to go to the hospital that she did not at that time. She feels she may have picked it up from her who was at a where people had it she also had been to [facility] last week. She began developing symptoms after that. She states her is also home sick. She did test positive for the jorgensen virus. Chest x-ray revealed patchy bilateral airspace disease. We're consulted for the same. She is seen today on the regular medical floor. She is awake and alert in no acute distress. She is sitting up at the bedside. She does have a loose nonproductive cough. She is dyspneic with minimal conversation and exertion. She is maintaining O2 saturations in the 90s on 2 L/m per nasal cannula. Current temperature 102.8. She is slightly tachycardic. Blood pressure stable. White count 4.2. Hemoglobin 13.1. Platelets 137. Lymphocytes 0.4. D-dimer 0.90. Sodium 137. Potassium 3.7. Bicarb 20. Creatinine 0.64. Glucose 289. LDH 814. C-reactive protein 151. Ferritin is pending. Lactic acid 0.6. She has been initiated on Plaquenil, and ceftriaxone. She did receive 1 dose of azithromycin today. EKG with QT interval less than 500 ms. On 12/12/2019 patient seen in follow-up for general medical floor. She states she is feeling better, breathing easier, she remains on supplemental oxygen, currently on 2 L, her pulse ox is 91-95%, afebrile this morning, her last episode of fever was last night at 8:53 BPM, with a temp of 102.2F. Patient is on IV steroids, oral zinc, Rocephin, and Plaquenil. Today's labs have been reviewed, showing white blood cell count of 7.5, hemoglobin is 13.1, sodium was 137, potassium is 4.0, CO2 was 14, B1 is 9, creatinine is 0.53. LDH was 1117, CRP was 202, yesterday d-dimer was 0.90. Patient is on prophylactic dose of Lovenox. Objective - Vital Signs Vital signs: Vital Signs Temp 99.4 F 12/12/19 11:03 Pulse 106 H 12/12/19 11:03 Resp 16 12/12/19 11:03 BP 124/84 12/12/19 11:03 Pulse Ox 91 L 12/12/19 11:03 Intake & Output 12/11/19 12/12/19 12/12/19 18:59 06:59 18:59 Intake Total 414 350 222 Balance 414 350 222 Intake: Intake, IV Titration 50 Amount cefTRIAXone 1 gm In 50 Sodium Chloride 0.9% 50 ml @ 100 mls/hr IVPB Q24H [facility] Rx#:[id number] Oral 414 300 222 Other: Voiding Method Toilet Toilet # Voids 1 2 - Exam GENERAL EXAM: Alert, very pleasant, 34-year-old -[place] female, on 2 L of oxygen with a pulse ox of 91-95% comfortable in no apparent distress. HEAD: Normocephalic/atraumatic. EYES: Normal reaction of pupils, equal size. Conjunctiva pink, sclera white. NOSE: Clear with pink turbinates. THROAT: No erythema or exudates. NECK: No masses, no JVD, no thyroid enlargement, no adenopathy. CHEST: No chest wall deformity. Symmetrical expansion. LUNGS: Equal air entry with no crackles, wheeze, rhonchi or dullness. CVS: Regular rate and rhythm, normal S1 and S2, no gallops, no murmurs, no rubs ABDOMEN: Soft, nontender. No hepatosplenomegaly, normal bowel sounds, no guarding or rigidity. EXTREMITIES: No clubbing, no edema, no cyanosis, 2+ pulses and upper and lower extremities. MUSCULOSKELETAL: Muscle strength and tone normal. SPINE: No scoliosis or deformity SKIN: No rashes CENTRAL NERVOUS SYSTEM: Alert and oriented -3. No focal deficits, tone is normal in all 4 extremities. PSYCHIATRIC: Alert and oriented -3. Appropriate affect. Intact judgment and insight. - Labs CBC & Chem 7: 12/12/19 06:21 12/12/19 06:21 Labs: Abnormal Lab Results - Last 24 Hours (Table) 12/11/19 12/11/19 12/11/19 Range/Units 12:03 17:06 20:21 Lymphocytes # (1.0-4.8) k/uL Carbon Dioxide (22-30) mmol/L Glucose (74-99) mg/dL POC Glucose (mg/dL) 242 H 288 H 291 H (75-99) mg/dL Lactate Dehydrogenase (313-618) U/L C-Reactive Protein (<10.0) mg/L 12/12/19 12/12/19 12/12/19 Range/Units 00:58 06:21 06:21 Lymphocytes # 0.4 L (1.0-4.8) k/uL Carbon Dioxide 14 L (22-30) mmol/L Glucose 290 H (74-99) mg/dL POC Glucose (mg/dL) 229 H (75-99) mg/dL Lactate Dehydrogenase 1117 H (313-618) U/L C-Reactive Protein 202.3 H (<10.0) mg/L 12/12/19 12/12/19 Range/Units 06:43 11:15 Lymphocytes # (1.0-4.8) k/uL Carbon Dioxide (22-30) mmol/L Glucose (74-99) mg/dL POC Glucose (mg/dL) 285 H 293 H (75-99) mg/dL Lactate Dehydrogenase (313-618) U/L C-Reactive Protein (<10.0) mg/L Microbiology - Last 24 Hours (Table) 12/10/19 23:24 Blood Culture - Preliminary Blood No Growth after 24 hours Assessment and Plan Plan: Assessment: 1 Acute CoVID 19 pneumonia, chest x-ray reveals patchy bilateral airspace disease. 2 Febrile illness secondary to above 3 Diarrhea secondary to above 4 Elevated LDH, C-reactive protein, d-dimer. Ferritin pending. Secondary to above 5 Diabetes mellitus 6 Obesity 7 ADHD 8 History of anxiety 9 History of bipolar disorder Plan: Continue current medical treatment, follow-up d-dimer, inflammatory markers tomorrow, patient is breathing easier, febrile pattern has improved, continue monitoring vital signs, continue IV steroids, azithromycin, ceftriaxone and prophylactic doses of Lovenox, follow-up chest x-ray in the morning I performed a history & physical examination of the patient and discussed their management with my nurse practitioner, Kathy Lin. I reviewed the nurse practitioner's note and agree with the documented findings and plan of care. Lung sounds are positive for diminished breath sounds. The findings and the impression was discussed with the patient. I attest to the documentation by the nurse practitioner. Time with Patient: Less than 30
[2019-12-12] MEDS ORDERED: ALPRAZolam 0.25 MG TAB PO PRN (13:55)
--- NOTE | 2019-12-12 15:11 | PN ---
PROGRESS NOTE DATE OF SERVICE: 12/12/2019 This is a 34-year-old woman who was admitted with significant shortness of breath and possible bilateral pneumonia associated with COVID-19 with bilateral pneumonia being closely monitored at this time. The patient is feeling sick and patient also has some diarrhea too. The patient was started on broad-spectrum IV antibiotics. The patient evaluated by Pulmonology and as well as Infectious Disease as well. Hydroxychloroquine has been initiated. PAST MEDICAL HISTORY: Reviewed. REVIEW OF SYSTEMS: CARDIOVASCULAR SYSTEM: No angina. RESPIRATION: mentioned earlier. GI: As mentioned earlier. : No dysuria or retention. NERVOUS SYSTEM: No focal deficits. CURRENT MEDICATIONS ARE: 1. Tylenol p.r.n. 2. Xanax 0.5 t.i.d. 3. Vitamin C 500 mg daily. 4. Rocephin 1 g daily. 5. Lovenox 40 mg subcu daily. 6. Pepcid 20 mg b.i.d. 7. Glucotrol 20 mg b.i.d. 8. Plaquenil 200 mg b.i.d. 9. NovoLog scale. 10.Levemir 10 units subcu q.h.s. 11.Solu-Medrol 40 IV b.i.d. 12.Multivitamins 1 p.o. daily. 13.Zestril 50 mg q.h.s. 14.Zinc and sulfa. PHYSICAL EXAMINATION: The patient is alert, oriented x3, pulse 106, blood pressure 124/80, respirations 16, temperature 99.4, pulse ox 91% on 2 L. HEENT: Conjunctivae normal. Oral mucosa moist. NECK: No jugular venous distention. No lymph node enlargement. CARDIOVASCULAR SYSTEMS: S1, S2, muffled. RESPIRATION: Breath sounds decreased at the the bases, a few scattered rhonchi. ABDOMEN: Soft. NERVOUS SYSTEM: No focal deficits. LABS: CBC within normal. Sodium 37, potassium 4, glucose 290. LDH is 1117, CRP is 202.3. Chest x-ray reviewed personally. ASSESSMENT: 1. Acute COVID-19 pneumonia, bilateral viral patchy pneumonia. 2. Acute COVID-19 infection. 3. Elevated inflammatory markers including LDH, CRP, D-dimer due to above. 4. Uncontrolled diabetes type 2 with hyperglycemia. 5. Acute hypoxic respiratory failure, secondary to COVID pneumonia. 6. Morbid obesity 39.7. 7. History of noncompliance with medication. 8. Anxiety, bipolar. 9. ADD, ADHD. 10.DVT prophylaxis. RECOMMENDATION: In this 34-year-old gentleman who presented with with multiple complex medical issues, will monitor the patient closely, continue with the current management and symptomatic treatment, otherwise, recommend to resume the Glucotrol. Monitor blood sugars closely. IV steroids initially by Dr. Mohr. Continue rest of medications as mentioned earlier. Guarded prognosis. Further recommendations to follow. Please send a copy to my office as well as Dr. Verona Chauhan, who is the primary physician. MMODL / IJN: [id number] /
[2019-12-12 15:40] LABS: Ferritin 274.8 ng/mL (10.0-291.0)
[2019-12-12] MEDS: FAMOTIDINE 20 MG TAB PO SCH ×2 (16:02→21:04)
[2019-12-12] MEDS: glipiZIDE 10 MG TAB PO SCH ×2 (16:02→16:40)
[2019-12-12 16:42] LABS: Glucose,Whole Blood 337 mg/dL (75-99)
[2019-12-12] MEDS ORDERED: ALBUTEROL HFA INHALER INHALATION PRN (20:29)
[2019-12-12 20:53] LABS: Glucose,Whole Blood 322 mg/dL (75-99)
[2019-12-12] MEDS: guaiFENesin SYRUP 100MG/5ML 200 MG/10 ML CUP PO PRN (21:04)
--- NOTE | 2019-12-12 22:57 | CONS ---
CONSULTATION DATE OF SERVICE: 12/12/2019 REASON FOR CONSULTATION: COVID-19 pneumonia. HISTORY OF PRESENT ILLNESS: The patient is a 34-year-old -[place] female. This patient started getting sick about a week ago on Thursday when the patient started having fever with rigors and chills. The patient also has a cough which has been mostly dry in nature without any sputum production, moderate in intensity, with associated shortness of breath. With her symptoms getting worse, the patient was evaluated by her primary care physician. Apparently the patient did have a COVID-19 swab and a chest x-ray and she was suspected to have pneumonia. The patient was started on oral Levaquin. She did not have any improvement in her symptoms and continued getting worse. The patient then presented to [facility] ER on Thursday12/10/2019. On arrival in the ER, the patient was noted to be febrile with a temperature of 103 degrees Fahrenheit. The patient was tachycardic and mildly hypoxic, requiring supplemental oxygen. The patient did have a normal white count; however, she did have evidence of lymphopenia with elevated LDH and CRP. COVID-19 PCR came back positive. The patient had a chest x-ray that showed suggestive of patchy bilateral airspace edema that could be related to developing RDS. The patient has been admitted to the hospital and is currently being treated with Rocephin, Plaquenil, Solu-Medrol and zinc. Infectious Disease was consulted for further recommendations regarding antibiotic therapy. REVIEW OF SYSTEMS: Positive points have been mentioned in the HPI. Rest of the systems are negative. PAST MEDICAL HISTORY: Diabetes mellitus. PAST SURGICAL HISTORY: No major surgery. SOCIAL HISTORY: Remote history of smoking. No drinking or drug use. FAMILY HISTORY: Mother with history of diabetes mellitus. ALLERGIES: NO KNOWN DRUG ALLERGIES. MEDICATIONS: The patient is currently on zinc, Restoril, Theragran, Solu-Medrol, Levemir, NovoLog, Plaquenil, Glucotrol, Lovenox, Rocephin, vitamin C, Xanax and Tylenol. PHYSICAL EXAMINATION: Blood pressure 106/68 with a pulse of 91, temperature 99.5. She is 95% on room air. General description is a middle-aged female up in the bed in no distress. No tachypnea or accessory muscle of respiration use. HEENT examination shows no pallor or scleral icterus. Oral mucosa membrane is dry. NECK: Trachea is central. No thyromegaly. LUNGS: Unlabored breathing. Coarse crackles at bases bilaterally. No wheeze. HEART: S1, S2. Regular rate and rhythm. ABDOMEN: Soft. No tenderness. No guarding or rigidity. EXTREMITIES: No edema of the feet. SKIN EXAMINATION: No rash or mass palpable. Neurologically the patient is awake, alert, oriented x3. Mood and affect normal. LABS/IMAGING: Hemoglobin 13.1, white count 7.5. BUN of 9, creatinine 0.53. The patient did have elevated LDH and CRP. Chest x-ray report as mentioned above. DIAGNOSTIC IMPRESSION AND PLAN: Patient presented to hospital with sepsis in this patient who did have a fever, tachycardia and patchy bilateral infiltrate, elevated LDH and CRP and lymphopenia; clinical picture of acute COVID-19 infection which has been confirmed with a nasopharyngeal swab. Clinically doubt any evidence of secondary bacterial pneumonia. PLAN: 1. per protocol to finish a 5-day course of therapy. 2. Zinc and Solu-Medrol. 3. We will watch her clinical course closely and adjust medications further if needed. Thank you for this consultation. Will follow this patient along with you. MMODL / IJN: [id number] /
[2019-12-12] MEDS: ACETAMINOPHEN TAB 325 MG TAB PO PRN (23:23)
[2019-12-12] MEDS: TEMAZEPAM 15 MG CAP PO PRN (23:23)
[2019-12-13 07:21] LABS: Glucose,Whole Blood 345 mg/dL (75-99)
[2019-12-13] MEDS: INSULIN ASPART (NovoLOG) 100 UNIT/ML VIAL SQ SCH ×4 (07:33→21:03)
[2019-12-13] MEDS: glipiZIDE 10 MG TAB PO SCH ×2 (07:33→16:56)
[2019-12-13 07:55] LABS: C Reactive Protein 183.6 mg/L (<10.0)
--- NOTE | 2019-12-13 08:20 | XR ---
EXAMINATION TYPE: XR chest 1V portable DATE OF EXAM: 12/13/2019 Comparison: 12/10/2019 Clinical History: 34-year-old female covid 19 related pneumonia Findings: Heart normal size. Focal patchy and confluent opacities especially mid and lower lungs. Improving aer ation at the left midlung. Impression: Aeration improved at the left midlung. Otherwise, lower lung infiltrates remain.
[2019-12-13] MEDS: ENOXAPARIN 40 MG/0.4 ML SYRINGE SQ SCH ×2 (08:50→21:02)
[2019-12-13] MEDS: ASCORBIC ACID 500 MG TAB PO SCH (08:50)
[2019-12-13] MEDS: HYDROXYCHLOROQUINE SULFATE 200 MG TAB PO SCH ×2 (08:50→21:13)
[2019-12-13] MEDS: ZINC SULFATE 220 MG CAP PO SCH (08:50)
[2019-12-13] MEDS: methylPREDNISolone SOD SUCCI 40 MG/ML 1 ML VIAL IV SCH ×2 (08:50→21:02)
[2019-12-13] MEDS: FAMOTIDINE 20 MG TAB PO SCH ×2 (08:50→21:02)
[2019-12-13] MEDS: guaiFENesin SYRUP 100MG/5ML 200 MG/10 ML CUP PO PRN ×3 (08:54→21:12)
--- NOTE | 2019-12-13 10:56 | P.PN ---
Subjective Progress Note Date: 12/13/19 Principal diagnosis: Acute COVID 19 pneumonia This is a very pleasant 34-year-old -[place] female patient who follows with Dr. Verona Dunaway as her primary care provider. She has a history of obesity, ADHD, anxiety, bipolar disorder, diabetes mellitus and is maintained on glipizide in the outpatient setting. Former smoker. She presented here to the emergency room yesterday after a one-week history of increasing shortness of breath, cough and congestion. She also was having issues with diarrhea. She did see her PCP on 12/08/2019 and was initiated on Levaquin for suspected pneumonia. She states her doctor did want her to go to the hospital that she did not at that time. She feels she may have picked it up from her who was at a where people had it she also had been to [place] last week. She began developing symptoms after that. She states her is also home sick. She did test positive for the jorgensen virus. Chest x-ray revealed patchy bilateral airspace disease. We're consulted for the same. She is seen today on the regular medical floor. She is awake and alert in no acute distress. She is sitting up at the bedside. She does have a loose nonproductive cough. She is dyspneic with minimal conversation and exertion. She is maintaining O2 saturations in the 90s on 2 L/m per nasal cannula. Current temperature 102.8. She is slightly tachycardic. Blood pressure stable. White count 4.2. Hemoglobin 13.1. Platelets 137. Lymphocytes 0.4. D-dimer 0.90. Sodium 137. Potassium 3.7. Bicarb 20. Creatinine 0.64. Glucose 289. LDH 814. C-reactive protein 151. Ferritin is pending. Lactic acid 0.6. She has been initiated on Plaquenil, and ceftriaxone. She did receive 1 dose of azithromycin today. EKG with QT interval less than 500 ms. On 12/12/2019 patient seen in follow-up for general medical floor. She states she is feeling better, breathing easier, she remains on supplemental oxygen, currently on 2 L, her pulse ox is 91-95%, afebrile this morning, her last episode of fever was last night at 8:53 BPM, with a temp of 102.2F. Patient is on IV steroids, oral zinc, Rocephin, and Plaquenil. Today's labs have been reviewed, showing white blood cell count of 7.5, hemoglobin is 13.1, sodium was 137, potassium is 4.0, CO2 was 14, B1 is 9, creatinine is 0.53. LDH was 1117, CRP was 202, yesterday d-dimer was 0.90. Patient is on prophylactic dose of Lovenox. On 12/13/2019 patient is seen in follow-up on a general medical floor, still has occasional coughing fits, but overall feeling better, she is on 2 L of oxygen with pulse ox of 94-95%, did have a fever spike last night with a temp of 10 1.1F. Afebrile this morning, no worsening shortness of breath, today's chest x-ray shows somewhat improved aeration at the left mid lung, residual lower lung infiltrates. Continues on empiric broad coverage in the form of Rocephin, she is completing her course of Plaquenil, she remains on IV Solu-Medrol 40 mg every 12 hours, she has developed hyperglycemia and she is on Levemir 10 units daily, in addition to sliding scale insulin and Glucotrol was added. Patient remains on Lovenox at 40 mg twice daily. Denies markers were reviewed showing d-dimer of 0.38, LDH of 1209, troponin is less than 0.012, CRP is trending down slightly and is at 183.6. Objective - Vital Signs Vital signs: Vital Signs Temp 98.4 F 12/13/19 07:00 Pulse 93 12/13/19 07:00 Resp 17 12/13/19 07:00 BP 112/76 12/13/19 07:00 Pulse Ox 94 L 12/13/19 07:00 Intake & Output 12/12/19 12/13/19 12/13/19 18:59 06:59 18:59 Intake Total 222 Balance 222 Intake: Oral 222 Other: Voiding Method Toilet Toilet Bedside Commode # Voids 1 # Bowel Movements 1 - Exam GENERAL EXAM: Alert, very pleasant, 34-year-old -[place] female, on 2 L of oxygen with a pulse ox of 94-95% comfortable in no apparent distress. HEAD: Normocephalic/atraumatic. EYES: Normal reaction of pupils, equal size. Conjunctiva pink, sclera white. NOSE: Clear with pink turbinates. THROAT: No erythema or exudates. NECK: No masses, no JVD, no thyroid enlargement, no adenopathy. CHEST: No chest wall deformity. Symmetrical expansion. LUNGS: Equal air entry with no crackles, wheeze, rhonchi or dullness. CVS: Regular rate and rhythm, normal S1 and S2, no gallops, no murmurs, no rubs ABDOMEN: Soft, nontender. No hepatosplenomegaly, normal bowel sounds, no guarding or rigidity. EXTREMITIES: No clubbing, no edema, no cyanosis, 2+ pulses and upper and lower extremities. MUSCULOSKELETAL: Muscle strength and tone normal. SPINE: No scoliosis or deformity SKIN: No rashes CENTRAL NERVOUS SYSTEM: Alert and oriented -3. No focal deficits, tone is normal in all 4 extremities. PSYCHIATRIC: Alert and oriented -3. Appropriate affect. Intact judgment and insight. - Labs CBC & Chem 7: 12/12/19 06:21 12/12/19 06:21 Labs: Abnormal Lab Results - Last 24 Hours (Table) 12/10/19 12/12/19 12/12/19 Range/Units 23:24 11:15 16:41 POC Glucose (mg/dL) 293 H 337 H (75-99) mg/dL Lactate Dehydrogenase (313-618) U/L C-Reactive Protein (<10.0) mg/L Procalcitonin 0.10 H (0.02-0.09) ng/mL 12/12/19 12/13/19 12/13/19 Range/Units 20:53 06:11 07:19 POC Glucose (mg/dL) 322 H 345 H (75-99) mg/dL Lactate Dehydrogenase 1209 H (313-618) U/L C-Reactive Protein 183.6 H (<10.0) mg/L Procalcitonin (0.02-0.09) ng/mL Microbiology - Last 24 Hours (Table) 12/10/19 23:24 Blood Culture - Preliminary Blood No Growth after 48 hours Assessment and Plan Plan: Assessment: 1 Acute CoVID 19 pneumonia, chest x-ray reveals patchy bilateral airspace disease. 2 Febrile illness secondary to above 3 Diarrhea secondary to above 4 Elevated LDH, C-reactive protein, d-dimer. Ferritin pending. Secondary to above 5 Diabetes mellitus 6 Obesity 7 ADHD 8 History of anxiety 9 History of bipolar disorder 10 steroid-induced hyperglycemia, steroids have been decreased today, we'll increase the dose of Levemir Plan: Continue current medical treatment, we'll decrease the dose of IV steroids to 20 mg twice daily, will increase the dose of Levemir to 20 units daily, continue with sliding scale and Glucotrol. Today's chest x-ray shows improvement in aeration of the left lung with residual lower lung infiltrates. Follow-up LDH CRP tomorrow. Continue Plaquenil and Rocephin I performed a history & physical examination of the patient and discussed their management with my nurse practitioner, Kathy Lin. I reviewed the nurse practitioner's note and agree with the documented findings and plan of care. Lung sounds are positive for diminished breath sounds. The findings and the impression was discussed with the patient. I attest to the documentation by the nurse practitioner. Time with Patient: Less than 30
[2019-12-13 11:30] LABS: Glucose,Whole Blood 331 mg/dL (75-99)
[2019-12-13] MEDS: MULTIVITAMINS, THERA 1 EACH TAB PO SCH (12:09)
[2019-12-13] MEDS ORDERED: BENZONATATE 100 MG CAP PO PRN (14:53)
--- NOTE | 2019-12-13 15:16 | PN ---
PROGRESS NOTE DATE OF SERVICE: 12/13/2019 This 34-year-old woman was admitted with significant COVID pneumonia and bilateral lesions. The patient had some respiratory difficulties last night. The patient is on a conservative line of treatment. Dr. Perez is also following the patient closely. The patient had been discharged and her has also traveled to [place] for attending a . The patient is being closely monitored at this time. Past medical history reviewed. REVIEW OF SYSTEMS: CARDIOVASCULAR SYSTEM: No angina, palpitations. RESPIRATORY SYSTEM: As mentioned earlier. GI: As mentioned earlier. : No dysuria or retention. NERVOUS SYSTEM: No numbness, weakness. CURRENT MEDICATIONS: Reviewed. They include: 1. Tylenol p.o. 320 mg q.6 p.r.n. 2. Ventolin p.r.n. 3. Xanax 0.25 t.i.d. 4. Vitamin C 500 mg b.i.d. 5. Rocephin 1 gram daily. 6. Lovenox 40 mg subcutaneously b.i.d. 7. Pepcid 20 mg p.o. b.i.d. 8. Glucotrol 20 mg b.i.d. 9. Robitussin 200 mg q.6 p.r.n. 10.Plaquenil 200 mg p.o. b.i.d. 11.NovoLog scale. 12.Levemir 20 units subcutaneously at bedtime. 13.Solu-Medrol 20 mg IV b.i.d. 14.Multivitamins 1 p.o. daily. 15.Restoril. 16.Zinc oxide. PHYSICAL EXAMINATION: Patient is alert, oriented x3. Pulse 76. Blood pressure 110/73, respirations 16, temperature 97.7, pulse ox 94% on 2 L. HEENT: Conjunctivae normal. Oral mucosa moist. NECK: No jugular venous distention. No carotid bruit. No lymph node enlargement. CARDIOVASCULAR SYSTEM: S1, S2 muffled. RESPIRATORY SYSTEM: Breath sounds diminished at the bases. A few scattered rhonchi and crackles. ABDOMEN: Soft, non-tender. LEGS: No edema. No swelling. NERVOUS SYSTEM: No focal deficit. LABS: Accu-Cheks 345, 331. C-reactive protein is 183.6. LDH noted. CBC noted. CO2 is 14. ASSESSMENT: 1. Acute COVID-19 pneumonia, bilateral, viral patchy pneumonia with acute hypoxic respiratory failure with possible sepsis, present on admission. 2. Acute COVID-19 infection. 3. Elevated inflammatory markers, including LDH, CRP, D-dimer, secondary to above. 4. Uncontrolled diabetes mellitus type 2 with hyperglycemia. 5. Morbid obesity with body mass index of 39.7. 6. History of noncompliance with medications. 7. Anxiety, bipolar. 8. Attention deficit disorder, attention deficit hyperactivity disorder. 9. Deep venous thrombosis prophylaxis. 10.Possible metabolic acidosis. RECOMMENDATIONS AND DISCUSSION: In this 34-year-old woman who presented with multiple complex medical issues, we will monitor the patient closely, continue the current medications, continue symptomatic treatment. Otherwise, continue with bronchodilators. We will increase the dose of insulin. I would also check for lactic acid as well as serum acetone to also rule out the possibility of diabetic ketoacidosis. Otherwise, continue to monitor. Guarded prognosis because of multiple complex medical issues. Further recommendations to follow. Steroid doses have been tapered at this time. MMODL / IJN: [id number] /
[2019-12-13 15:47] LABS: ALT 40 U/L (4-34); AST 58 U/L (14-36); African American GFR (CKD) >90 (>60 ml/min/1.73 sqM); Albumin 3.7 g/dL (3.5-5.0); Alkaline Phosphatase 69 U/L (38-126); Anion Gap 11 mmol/L; Blood Urea Nitrogen 15 mg/dL (7-17); Calcium 8.8 mg/dL (8.4-10.2); Carbon Dioxide 20 mmol/L (22-30); Chloride 104 mmol/L (98-107); Glucose 316 mg/dL (74-99); Non-African American GFR(CKD) >90 (>60 ml/min/1.73 sqM); Sodium 135 mmol/L (137-145); Total Bilirubin 0.8 mg/dL (0.2-1.3); Total Protein 7.3 g/dL (6.3-8.2)
[2019-12-13 16:54] LABS: Glucose,Whole Blood 322 mg/dL (75-99)
[2019-12-13 20:16] LABS: Glucose,Whole Blood 329 mg/dL (75-99)
[2019-12-13] MEDS ORDERED: INSULIN DETEMIR (LEVEMIR) 100 UNIT/ML SYR SQ SCH (21:00)
--- NOTE | 2019-12-13 23:51 | PN ---
PROGRESS NOTE DATE OF SERVICE: 12/13/2019 REASON FOR FOLLOWUP: Acute COVID-19 pneumonia. INTERVAL HISTORY: The patient is currently afebrile. Patient is breathing comfortably. The patient remains to be having coughing spells mostly in the evening at night with her drainage. No nausea, no vomiting. No abdominal pain, no diarrhea. PHYSICAL EXAMINATION: Blood pressure 116/78 with a pulse of 82, temperature of 98. She is 95% on room air. General description is a middle-aged female up in the bed in no distress. RESPIRATORY SYSTEM: Unlabored breathing, decreased intensity of breath sounds. No wheeze. HEART: S1, S2. Regular rate and rhythm. ABDOMEN: Soft, no tenderness. LABS: BUN of 15, creatinine 0.40. Liver enzymes mildly elevated. Still having . DIAGNOSTIC IMPRESSION AND PLAN: Patient with acute COVID-19 pneumonia, patient seemed to be clinically responding slowly and chest x-ray showed improvement as well. To continue with Plaquenil, steroids and zinc and monitor clinical course closely. MMODL / IJN: [id number] /
[2019-12-14 06:55] LABS: Glucose,Whole Blood 337 mg/dL (75-99)
--- NOTE | 2019-12-14 07:28 | XR ---
EXAMINATION TYPE: XR chest 1V portable DATE OF EXAM: 12/14/2019 COMPARISON: 12/13/2019 INDICATION: Bilateral pneumonia TECHNIQUE: Single frontal view of the chest is obtained. FINDINGS: The heart size is normal. The pulmonary vasculature is slightly prominent. Bibasilar infiltrates are present. Left diaphragm is not identified. A small left pleural effusion ma y be present. This is an interval change. IMPRESSION: 1. Bibasilar infiltrates, present previously. 2. Interval development of a suspected left pleural effusion. Atelectasis and pneumonia could be with in the differential.
[2019-12-14 07:56] LABS: Basophils % (A) 0 %; Eosinophils # (A) 0.1 k/uL (0-0.7); Eosinophils % (A) 1 %; HCT 40.5 % (34.0-46.0); HGB 13.3 gm/dL (11.4-16.0); Lymphocytes # (A) 0.4 k/uL (1.0-4.8); Lymphocytes % (A) 7 %; MCHC 32.8 g/dL (31.0-37.0); MCV 85.4 fL (80.0-100.0); Mean Platelet Volume 9.4; Monocytes # (A) 0.2 k/uL (0-1.0); Monocytes % (A) 4 %; Neutrophils # (A) 5.3 k/uL (1.3-7.7); Neutrophils % (A) 86 %; Platelet Count 219 k/uL (150-450); RBC 4.74 m/uL (3.80-5.40); RDW 13.9 % (11.5-15.5); WBC 6.2 k/uL (3.8-10.6)
[2019-12-14 08:09] LABS: African American GFR (CKD) >90 (>60 ml/min/1.73 sqM); Anion Gap 10 mmol/L; Blood Urea Nitrogen 16 mg/dL (7-17); C Reactive Protein 75.6 mg/L (<10.0); Calcium 9.1 mg/dL (8.4-10.2); Carbon Dioxide 23 mmol/L (22-30); Chloride 105 mmol/L (98-107); Glucose 307 mg/dL (74-99); LDH 786 U/L (313-618); Non-African American GFR(CKD) >90 (>60 ml/min/1.73 sqM); Potassium 4.2 mmol/L (3.5-5.1); Sodium 138 mmol/L (137-145)
[2019-12-14] MEDS: INSULIN ASPART (NovoLOG) 100 UNIT/ML VIAL SQ SCH ×5 (08:15→21:09)
[2019-12-14] MEDS: MULTIVITAMINS, THERA 1 EACH TAB PO SCH (08:16)
[2019-12-14] MEDS: HYDROXYCHLOROQUINE SULFATE 200 MG TAB PO SCH ×2 (08:16→21:08)
[2019-12-14] MEDS: glipiZIDE 10 MG TAB PO SCH ×2 (08:16→17:56)
[2019-12-14] MEDS: methylPREDNISolone SOD SUCCI 40 MG/ML 1 ML VIAL IV SCH (08:17)
[2019-12-14] MEDS: ZINC SULFATE 220 MG CAP PO SCH (08:17)
[2019-12-14] MEDS: FAMOTIDINE 20 MG TAB PO SCH ×2 (08:17→21:08)
[2019-12-14] MEDS: ASCORBIC ACID 500 MG TAB PO SCH (08:18)
[2019-12-14] MEDS: ENOXAPARIN 40 MG/0.4 ML SYRINGE SQ SCH ×2 (08:18→21:08)
[2019-12-14] MEDS: ACETAMINOPHEN TAB 325 MG TAB PO PRN (08:35)
[2019-12-14] MEDS: guaiFENesin SYRUP 100MG/5ML 200 MG/10 ML CUP PO PRN ×2 (08:35→21:14)
[2019-12-14 11:37] LABS: Glucose,Whole Blood 302 mg/dL (75-99)
--- NOTE | 2019-12-14 11:40 | P.PN ---
Subjective Progress Note Date: 12/14/19 Principal diagnosis: Acute COVID 19 pneumonia This is a very pleasant 34-year-old -[place] female patient who follows with Dr. Verona Dunaway as her primary care provider. She has a history of obesity, ADHD, anxiety, bipolar disorder, diabetes mellitus and is maintained on glipizide in the outpatient setting. Former smoker. She presented here to the emergency room yesterday after a one-week history of increasing shortness of breath, cough and congestion. She also was having issues with diarrhea. She did see her PCP on 12/08/2019 and was initiated on Levaquin for suspected pneumonia. She states her doctor did want her to go to the hospital that she did not at that time. She feels she may have picked it up from her who was at a where people had it she also had been to [facility] last week. She began developing symptoms after that. She states her is also home sick. She did test positive for the jorgensen virus. Chest x-ray revealed patchy bilateral airspace disease. We're consulted for the same. She is seen today on the regular medical floor. She is awake and alert in no acute distress. She is sitting up at the bedside. She does have a loose nonproductive cough. She is dyspneic with minimal conversation and exertion. She is maintaining O2 saturations in the 90s on 2 L/m per nasal cannula. Current temperature 102.8. She is slightly tachycardic. Blood pressure stable. White count 4.2. Hemoglobin 13.1. Platelets 137. Lymphocytes 0.4. D-dimer 0.90. Sodium 137. Potassium 3.7. Bicarb 20. Creatinine 0.64. Glucose 289. LDH 814. C-reactive protein 151. Ferritin is pending. Lactic acid 0.6. She has been initiated on Plaquenil, and ceftriaxone. She did receive 1 dose of azithromycin today. EKG with QT interval less than 500 ms. On 12/12/2019 patient seen in follow-up for general medical floor. She states she is feeling better, breathing easier, she remains on supplemental oxygen, currently on 2 L, her pulse ox is 91-95%, afebrile this morning, her last episode of fever was last night at 8:53 BPM, with a temp of 102.2F. Patient is on IV steroids, oral zinc, Rocephin, and Plaquenil. Today's labs have been reviewed, showing white blood cell count of 7.5, hemoglobin is 13.1, sodium was 137, potassium is 4.0, CO2 was 14, B1 is 9, creatinine is 0.53. LDH was 1117, CRP was 202, yesterday d-dimer was 0.90. Patient is on prophylactic dose of Lovenox. On 12/13/2019 patient is seen in follow-up on a general medical floor, still has occasional coughing fits, but overall feeling better, she is on 2 L of oxygen with pulse ox of 94-95%, did have a fever spike last night with a temp of 10 1.1F. Afebrile this morning, no worsening shortness of breath, today's chest x-ray shows somewhat improved aeration at the left mid lung, residual lower lung infiltrates. Continues on empiric broad coverage in the form of Rocephin, she is completing her course of Plaquenil, she remains on IV Solu-Medrol 40 mg every 12 hours, she has developed hyperglycemia and she is on Levemir 10 units daily, in addition to sliding scale insulin and Glucotrol was added. Patient remains on Lovenox at 40 mg twice daily. Denies markers were reviewed showing d-dimer of 0.38, LDH of 1209, troponin is less than 0.012, CRP is trending down slightly and is at 183.6. On 12/14/2019 patient seen in follow-up on general medical floor. Denies any specific complaints, only occasional cough, she is on room air, with a pulse ox of 92%, pulse ox on 2 L is 95%, hemodynamically stable, she has been afebrile. Denies follow-up chest x-ray shows slight improvement in the appearance of bibasilar infiltrates, and interval development of the suspected left pleural effusion. Today's labs have been reviewed, white blood cell count 6.2, lymphocyte count is 0.4, electrolytes are within normal limits, B1 of 16 and cre atinine was 0.47. Yesterday's d-dimer was 0.38. CRP is down to 75.6, trending down, and LDH is down to 786. Patient remains on IV steroids, Plaquenil, and Rocephin for empiric antibiotic coverage, yesterday will cut back to IV Solu- Medrol to 20 mg twice daily, patient developed steroid-induced hyperglycemia, will increase the dose of Levemir, patient remains on Glucotrol, and sliding scale insulin, on today's labs her blood sugars are still elevated in the 300s, and serum acetone was positive. We can stop the IV steroids altogether today Objective - Vital Signs Vital signs: Vital Signs Temp 98.4 F 12/14/19 11:21 Pulse 73 12/14/19 11:21 Resp 18 12/14/19 11:21 BP 129/89 12/14/19 11:21 Pulse Ox 95 12/14/19 11:21 Intake & Output 12/13/19 12/14/19 12/14/19 18:59 06:59 18:59 Intake Total 160 Balance 160 Intake: Oral 160 Other: Voiding Method Toilet Toilet Bedside Commode Bedside Commode # Voids 2 1 - Exam GENERAL EXAM: Alert, very pleasant, 34-year-old -Cro[place] female, on 2 L of oxygen with a pulse ox of 94-95% comfortable in no apparent distress. HEAD: Normocephalic/atraumatic. EYES: Normal reaction of pupils, equal size. Conjunctiva pink, sclera white. NOSE: Clear with pink turbinates. THROAT: No erythema or exudates. NECK: No masses, no JVD, no thyroid enlargement, no adenopathy. CHEST: No chest wall deformity. Symmetrical expansion. LUNGS: Equal air entry with no crackles, wheeze, rhonchi or dullness. CVS: Regular rate and rhythm, normal S1 and S2, no gallops, no murmurs, no rubs ABDOMEN: Soft, nontender. No hepatosplenomegaly, normal bowel sounds, no guarding or rigidity. EXTREMITIES: No clubbing, no edema, no cyanosis, 2+ pulses and upper and lower extremities. MUSCULOSKELETAL: Muscle strength and tone normal. SPINE: No scoliosis or deformity SKIN: No rashes CENTRAL NERVOUS SYSTEM: Alert and oriented -3. No focal deficits, tone is normal in all 4 extremities. PSYCHIATRIC: Alert and oriented -3. Appropriate affect. Intact judgment and insight. - Labs CBC & Chem 7: 12/14/19 06:55 12/14/19 06:55 Labs: Abnormal Lab Results - Last 24 Hours (Table) 12/13/19 12/13/1912/12/20 Range/Units 14:53 16:50 20:15 Lymphocytes # (1.0-4.8) k/uL Sodium 135 L (137-145) mmol/L Carbon Dioxide 20 L (22-30) mmol/L Creatinine 0.40 L (0.52-1.04) mg/dL Glucose 316 H (74-99) mg/dL POC Glucose (mg/dL) 322 H 329 H (75-99) mg/dL AST 58 H (14-36) U/L ALT 40 H (4-34) U/L Lactate Dehydrogenase (313-618) U/L C-Reactive Protein (<10.0) mg/L 12/14/19 12/14/19 12/14/19 Range/Units 06:54 06:55 06:55 Lymphocytes # 0.4 L (1.0-4.8) k/uL Sodium (137-145) mmol/L Carbon Dioxide (22-30) mmol/L Creatinine 0.47 L (0.52-1.04) mg/dL Glucose 307 H (74-99) mg/dL POC Glucose (mg/dL) 337 H (75-99) mg/dL AST (14-36) U/L ALT (4-34) U/L Lactate Dehydrogenase 786 H (313-618) U/L C-Reactive Protein 75.6 H (<10.0) mg/L Microbiology - Last 24 Hours (Table) 12/10/19 23:24 Blood Culture - Preliminary Blood No Growth after 72 hours Assessment and Plan Plan: Assessment: 1 Acute CoVID 19 pneumonia, chest x-ray reveals patchy bilateral airspace disease. 2 Febrile illness secondary to above 3 Diarrhea secondary to above 4 Elevated LDH, C-reactive protein, d-dimer. Ferritin pending. Secondary to above 5 Diabetes mellitus 6 Obesity 7 ADHD 8 History of anxiety 9 History of bipolar disorder 10 steroid-induced hyperglycemia, steroids have been decreased today, we'll increase the dose of Levemir Plan: Continue current medical treatment, we'll stop the IV steroids, clinically patient is improving, no acute events overnight, wean FiO2, continue Plaquenil Rocephin. Today's chest x-ray has been reviewed, showing some slight improvement in bilateral infiltrates, and small left pleural effusion. We'll continue to monitor for next 24 hours, with possibility of discharge home tomorrow I performed a history & physical examination of the patient and discussed their management with my nurse practitioner, Kathy Lin. I reviewed the nurse practitioner's note and agree with the documented findings and plan of care. Lung sounds are positive for diminished breath sounds. The findings and the impression was discussed with the patient. I attest to the documentation by the nurse practitioner. Time with Patient: Less than 30
[2019-12-14 14:58] VITALS: BMI 39.6
[2019-12-14 16:25] LABS: Glucose,Whole Blood 340 mg/dL (75-99)
--- NOTE | 2019-12-14 18:02 | PN ---
PROGRESS NOTE DATE OF SERVICE: 12/14/2019 This 34-year-old woman who was admitted with acute COVID-19 pneumonia also had bilateral pneumonia, right more than the left, and the most recent chest x-ray, which I reviewed today, showed some minimal improvement. Patient continues to be short of breath and also has incessant cough. The patient also had elevated blood sugars. Patient is being closely monitored. Past medical history reviewed. REVIEW OF SYSTEMS: CARDIOVASCULAR SYSTEM: No angina, palpitations. RESPIRATORY SYSTEM: As mentioned earlier. GI: As mentioned earlier. : No dysuria or retention. NERVOUS SYSTEM: No numbness, weakness. CURRENT MEDICATIONS: Reviewed. They include: 1. Tylenol 325 q.6 p.r.n. 2. Ventolin 2.5 q.i.d. 3. Xanax 0.25 t.i.d. 4. Vitamin C 500 mg daily. 5. Tessalon Perles. 6. Rocephin 1 gram daily. 7. Lovenox 40 mg subcutaneously b.i.d. 8. Pepcid 20 mg b.i.d. 9. Glucotrol 20 mg b.i.d. 10.Robitussin 200 mg q.6 p.r.n. 11.Plaquenil 200 mg b.i.d. 12.Levemir 20 units subcutaneously b.i.d. 13.Restoril. 14.Orazinc. PHYSICAL EXAMINATION: Patient is alert, oriented x3. Pulse is 70, blood pressure 117/84, respiration 16, temperature 97.6, pulse ox 97% on 2 L. HEENT: Conjunctivae normal. NECK: No jugular venous distention. CARDIOVASCULAR SYSTEM: S1, S2 muffled. RESPIRATORY SYSTEM: Breath sounds diminished at the bases. A few scattered rhonchi and crackles. ABDOMEN: Soft. NERVOUS SYSTEM: No focal deficit. LABS: WBC normal. Otherwise, glucose 307. LDH is 786 and C-reactive protein 75.6. ASSESSMENT: 1. Acute COVID-19 pneumonia, bilateral, viral patchy pneumonia, right more than left, with acute hypoxic respiratory failure with possible sepsis, present on admission. 2. Acute diabetic ketoacidosis with uncontrolled blood sugars, diabetes mellitus, type 2, present on admission. 3. Elevated inflammatory markers, including LDH, CRP, D-dimer, secondary to above. 4. Morbid obesity with a body mass index of 39.7. 5. History of noncompliance with medications. 6. Anxiety, bipolar. 7. Attention deficit disorder, attention deficit hyperactivity disorder. 8. Deep venous thrombosis prophylaxis. 9. Possible metabolic acidosis. RECOMMENDATIONS AND DISCUSSION: In this 34-year-old woman who presented with multiple complex medical issues, we will monitor the patient closely, continue the current medications, continue with symptomatic treatment. Will increase insulin dosage. I would also recommend checking acetone, also. Otherwise, patient is on broad-spectrum IV antibiotics. Isolation for COVID-19 pneumonia. Closely follow with Dr. Perez and Dr. Whipple of Infectious Disease. Guarded prognosis because of multiple complex medical issues. Further recommendations to follow. See orders for further details. MMODL / IJN: [id number] /
[2019-12-14 20:52] LABS: Glucose,Whole Blood 345 mg/dL (75-99)
[2019-12-14] MEDS: TEMAZEPAM 15 MG CAP PO PRN (21:08)
[2019-12-14] MEDS: INSULIN DETEMIR (LEVEMIR) 100 UNIT/ML SYR SQ SCH (21:09)
--- NOTE | 2019-12-15 02:51 | PN ---
PROGRESS NOTE DATE OF SERVICE: 12/14/2019 REASON FOR FOLLOWUP: Acute COVID-19 pneumonia. INTERVAL HISTORY: The patient is currently afebrile. The patient is breathing more comfortably. The patient's cough seemed to have improved as well. No sputum. No nausea, no vomiting. No abdominal pain, no diarrhea. PHYSICAL EXAMINATION: Blood pressure 117/77, pulse of 72, temperature 97.9. She is 96% on 2 L nasal cannula. General description is a middle-aged female up in the bed in no distress. Respiratory system: Unlabored breathing, decreased breath sounds. No wheeze. Heart S1, S2. Regular rate and rhythm. Abdomen soft, no tenderness. LABS: Hemoglobin 13.8, white count 6.2, BUN of 16, creatinine 0.47. Blood culture negative. DIAGNOSTIC IMPRESSION AND PLAN: Patient with acute COVID-19 pneumonia. This patient has shown clinical improvement. The patient to continue with current treatment including Plaquenil, zinc, Lovenox, and monitor clinical course closely. MMODL / IJN: [id number] /
[2019-12-15 06:58] LABS: Glucose,Whole Blood 263 mg/dL (75-99)
[2019-12-15] MEDS: FAMOTIDINE 20 MG TAB PO SCH ×2 (07:15→21:20)
[2019-12-15] MEDS: INSULIN ASPART (NovoLOG) 100 UNIT/ML VIAL SQ SCH ×7 (07:15→21:21)
[2019-12-15] MEDS: ENOXAPARIN 40 MG/0.4 ML SYRINGE SQ SCH ×2 (07:15→21:20)
[2019-12-15] MEDS: ZINC SULFATE 220 MG CAP PO SCH (07:16)
[2019-12-15] MEDS: glipiZIDE 10 MG TAB PO SCH ×2 (07:16→17:53)
[2019-12-15] MEDS: ASCORBIC ACID 500 MG TAB PO SCH (07:16)
[2019-12-15] MEDS: HYDROXYCHLOROQUINE SULFATE 200 MG TAB PO SCH ×2 (07:29→21:20)
[2019-12-15 08:32] LABS: Glucose,Whole Blood 205 mg/dL (75-99)
[2019-12-15 08:42] LABS: Basophils % (A) 1 %; Eosinophils # (A) 0.1 k/uL (0-0.7); Eosinophils % (A) 1 %; HCT 40.4 % (34.0-46.0); HGB 12.9 gm/dL (11.4-16.0); Hypochromasia Slight; Lymphocytes % (A) 29 %; MCV 87.4 fL (80.0-100.0); Mean Platelet Volume 8.9; Monocytes # (A) 0.2 k/uL (0-1.0); Monocytes % (A) 7 %; Neutrophils % (A) 59 %; Platelet Count 261 k/uL (150-450); RBC 4.62 m/uL (3.80-5.40); RDW 13.7 % (11.5-15.5); WBC 3.5 k/uL (3.8-10.6)
[2019-12-15 08:53] LABS: African American GFR (CKD) >90 (>60 ml/min/1.73 sqM); Anion Gap 7 mmol/L; Blood Urea Nitrogen 20 mg/dL (7-17); Calcium 8.6 mg/dL (8.4-10.2); Carbon Dioxide 26 mmol/L (22-30); Chloride 105 mmol/L (98-107); Glucose 240 mg/dL (74-99); LDH 570 U/L (313-618); Non-African American GFR(CKD) >90 (>60 ml/min/1.73 sqM); Potassium 3.8 mmol/L (3.5-5.1); Sodium 138 mmol/L (137-145)
[2019-12-15 10:01] LABS: C Reactive Protein 37.9 mg/L (<10.0)
--- NOTE | 2019-12-15 11:24 | P.PN ---
Subjective Progress Note Date: 12/15/19 Principal diagnosis: Acute COVID 19 pneumonia This is a very pleasant 34-year-old -[place]aced[place] female patient who follows with Dr. Verona Dunaway as her primary care provider. She has a history of obesity, ADHD, anxiety, bipolar disorder, diabetes mellitus and is maintained on glipizide in the outpatient setting. Former smoker. She presented here to the emergency room yesterday after a one-week history of increasing shortness of breath, cough and congestion. She also was having issues with diarrhea. She did see her PCP on 12/08/2019 and was initiated on Levaquin for suspected pneumonia. She states her doctor did want her to go to the hospital that she did not at that time. She feels she may have picked it up from her who was at a where people had it she also had been to [facility] last week. She began developing symptoms after that. She states her is also home sick. She did test positive for the jorgensen virus. Chest x-ray revealed patchy bilateral airspace disease. We're consulted for the same. She is seen today on the regular medical floor. She is awake and alert in no acute distress. She is sitting up at the bedside. She does have a loose nonproductive cough. She is dyspneic with minimal conversation and exertion. She is maintaining O2 saturations in the 90s on 2 L/m per nasal cannula. Current temperature 102.8. She is slightly tachycardic. Blood pressure stable. White count 4.2. Hemoglobin 13.1. Platelets 137. Lymphocytes 0.4. D-dimer 0.90. Sodium 137. Potassium 3.7. Bicarb 20. Creatinine 0.64. Glucose 289. LDH 814. C-reactive protein 151. Ferritin is pending. Lactic acid 0.6. She has been initiated on Plaquenil, and ceftriaxone. She did receive 1 dose of azithromycin today. EKG with QT interval less than 500 ms. On 12/12/2019 patient seen in follow-up for general medical floor. She states she is feeling better, breathing easier, she remains on supplemental oxygen, currently on 2 L, her pulse ox is 91-95%, afebrile this morning, her last episode of fever was last night at 8:53 BPM, with a temp of 102.2F. Patient is on IV steroids, oral zinc, Rocephin, and Plaquenil. Today's labs have been reviewed, showing white blood cell count of 7.5, hemoglobin is 13.1, sodium was 137, potassium is 4.0, CO2 was 14, B1 is 9, creatinine is 0.53. LDH was 1117, CRP was 202, yesterday d-dimer was 0.90. Patient is on prophylactic dose of Lovenox. On 12/13/2019 patient is seen in follow-up on a general medical floor, still has occasional coughing fits, but overall feeling better, she is on 2 L of oxygen with pulse ox of 94-95%, did have a fever spike last night with a temp of 10 1.1F. Afebrile this morning, no worsening shortness of breath, today's chest x-ray shows somewhat improved aeration at the left mid lung, residual lower lung infiltrates. Continues on empiric broad coverage in the form of Rocephin, she is completing her course of Plaquenil, she remains on IV Solu-Medrol 40 mg every 12 hours, she has developed hyperglycemia and she is on Levemir 10 units daily, in addition to sliding scale insulin and Glucotrol was added. Patient remains on Lovenox at 40 mg twice daily. Denies markers were reviewed showing d-dimer of 0.38, LDH of 1209, troponin is less than 0.012, CRP is trending down slightly and is at 183.6. On 12/14/2019 patient seen in follow-up on general medical floor. Denies any specific complaints, only occasional cough, she is on room air, with a pulse ox of 92%, pulse ox on 2 L is 95%, hemodynamically stable, she has been afebrile. Denies follow-up chest x-ray shows slight improvement in the appearance of bibasilar infiltrates, and interval development of the suspected left pleural effusion. Today's labs have been reviewed, white blood cell count 6.2, lymphocyte count is 0.4, electrolytes are within normal limits, B1 of 16 and cre atinine was 0.47. Yesterday's d-dimer was 0.38. CRP is down to 75.6, trending down, and LDH is down to 786. Patient remains on IV steroids, Plaquenil, and Rocephin for empiric antibiotic coverage, yesterday will cut back to IV Solu- Medrol to 20 mg twice daily, patient developed steroid-induced hyperglycemia, will increase the dose of Levemir, patient remains on Glucotrol, and sliding scale insulin, on today's labs her blood sugars are still elevated in the 300s, and serum acetone was positive. We can stop the IV steroids altogether today On 12/15/2019 patient seen in follow-up on general medical floor, she sits up in the chair, denies any breathing difficulty, she is intermittently wearing 2 L of oxygen, room air pulse ox was 96%, breathing seems to be nonlabored, she is afebrile. However since this morning patient developed nausea vomiting and 2 episodes of diarrhea. She remains on hydroxychloroquine, and Rocephin for empiric antibiotic coverage, in addition to zinc sulfate. Today's labs have been reviewed showing white blood cell count of 3.5, hemoglobin of 12.9, electrolytes were within normal limits, B1 is 20 creatinine 0.52, LDH is trending down to 570, and CRP is down to 37.9. No new chest x-ray today Objective - Vital Signs Vital signs: Vital Signs Temp 98.0 F 12/15/19 07:00 Pulse 58 L 12/15/19 07:00 Resp 18 12/15/19 07:30 BP 118/72 12/15/19 07:00 Pulse Ox 96 12/15/19 07:00 Intake & Output 12/14/19 12/15/19 12/15/19 18:59 06:59 18:59 Intake Total 160 100 Balance 160 100 Weight 104.78 kg Intake: Intake, IV Titration 100 Amount cefTRIAXone 1 gm In 100 Sodium Chloride 0.9% 50 ml @ 100 mls/hr IVPB Q24H [facility] Rx#:[id number] Oral 160 Other: Voiding Method Toilet # Voids 2 1 - Exam GENERAL EXAM: Alert, very pleasant, 34-year-old -[place] female, on room air with a pulse ox of 96 % comfortable in no apparent distress. HEAD: Normocephalic/atraumatic. EYES: Normal reaction of pupils, equal size. Conjunctiva pink, sclera white. NOSE: Clear with pink turbinates. THROAT: No erythema or exudates. NECK: No masses, no JVD, no thyroid enlargement, no adenopathy. CHEST: No chest wall deformity. Symmetrical expansion. LUNGS: Equal air entry with no crackles, wheeze, rhonchi or dullness. CVS: Regular rate and rhythm, normal S1 and S2, no gallops, no murmurs, no rubs ABDOMEN: Soft, nontender. No hepatosplenomegaly, normal bowel sounds, no g uarding or rigidity. EXTREMITIES: No clubbing, no edema, no cyanosis, 2+ pulses and upper and lower extremities. MUSCULOSKELETAL: Muscle strength and tone normal. SPINE: No scoliosis or deformity SKIN: No rashes CENTRAL NERVOUS SYSTEM: Alert and oriented -3. No focal deficits, tone is normal in all 4 extremities. PSYCHIATRIC: Alert and oriented -3. Appropriate affect. Intact judgment and insight. - Labs CBC & Chem 7: 12/15/19 07:28 12/15/19 07:28 Labs: Abnormal Lab Results - Last 24 Hours (Table) 12/14/19 12/14/19 12/14/19 Range/Units 11:36 16:24 20:51 WBC (3.8-10.6) k/uL BUN (7-17) mg/dL Glucose (74-99) mg/dL POC Glucose (mg/dL) 302 H 340 H 345 H (75-99) mg/dL C-Reactive Protein (<10.0) mg/L 12/15/19 12/15/19 12/15/19 Range/Units 06:56 07:28 07:28 WBC 3.5 L (3.8-10.6) k/uL BUN 20 H (7-17) mg/dL Glucose 240 H (74-99) mg/dL POC Glucose (mg/dL) 263 H (75-99) mg/dL C-Reactive Protein 37.9 H (<10.0) mg/L 12/15/19 Range/Units 08:30 WBC (3.8-10.6) k/uL BUN (7-17) mg/dL Glucose (74-99) mg/dL POC Glucose (mg/dL) 205 H (75-99) mg/dL C-Reactive Protein (<10.0) mg/L Microbiology - Last 24 Hours (Table) 12/10/19 23:24 Blood Culture - Preliminary Blood No Growth after 96 hours Assessment and Plan Plan: Assessment: 1 Acute CoVID 19 pneumonia, chest x-ray reveals patchy bilateral airspace disease. 2 Febrile illness secondary to above 3 Diarrhea secondary to above 4 Elevated LDH, C-reactive protein, d-dimer. Ferritin within normal limits. Improving on today's labs 5 Diabetes mellitus 6 Obesity 7 ADHD 8 History of anxiety 9 History of bipolar disorder 10 steroid-induced hyperglycemia, steroids have been decreased today, improving with discontinuation of steroids 11 nausea vomiting and diarrhea, related to Covid 19 related infection Plan: Vital signs are stable, patient is afebrile, her inflammatory markers are trending down, however patient developed nausea vomiting and diarrhea. She is completing course of Plaquenil, her steroids were discontinued yesterday. She could be considered for discharge home from pulmonary perspective, however in view of her nausea vomiting and diarrhea he may need additional day, we will leave that up to the primary care to decide. We'll obtain follow-up chest x-ray in the morning. I performed a history & physical examination of the patient and discussed their management with my nurse practitioner, Kathy Lin. I reviewed the nurse practitioner's note and agree with the documented findings and plan of care. Lung sounds are positive for diminished breath sounds. The findings and the impression was discussed with the patient. I attest to the documentation by the nurse practitioner. Time with Patient: Less than 30
[2019-12-15 11:44] LABS: Glucose,Whole Blood 218 mg/dL (75-99)
--- NOTE | 2019-12-15 12:09 | ECHOF ---
Referral Reason:chf MEASUREMENTS -------- HEIGHT: 162.6 cm WEIGHT: 104.8 kg BP: RVIDd: 2.6 cm (< 3.3) IVSd: 1.5 cm (0.6 - 1.1) LVIDd: 3.8 cm (3.9 - 5.3) LVPWd: 1.4 cm (0.6 - 1.1) IVSs: 1.9 cm LVIDs: 2.6 cm LVPWs: 1.7 cm Ao Diam: 2.8 cm (2.0 - 3.7) AV Cusp: 2.4 cm (1.5 - 2.6) LA Diam: 2.8 cm (2.7 - 3.8) MV EXCURSION: 18.395 mm (> 18.000) MV EF SLOPE: 106 mm/s (70 - 150) EPSS: 0.5 cm MV E Wayne: 0.39 m/s MV DecT: 232 ms MV A Wayne: 0.39 m/s MV E/A Ratio: 1.00 RAP: 5.00 mmHg RVSP: 22.12 mmHg FINDINGS -------- Sinus rhythm. This was a technically difficult study with suboptimal views. Limited off axis apicals. Pt had to sit in chair. The left ventricular size is normal. There is moderate concentric left ventricular hypertrophy. O verall left ventricular systolic function is normal with, an EF between 55 - 60 %. The right ventricle is normal in size. The left atrial size is normal. The right atrial size is normal. The aortic valve is trileaflet and appears structurally normal. The mitral valve is normal. There is trace mitral regurgitation. The tricuspid valve appears structurally normal. Trace tricuspid regurgitation present. Right diandra tricular systolic pressure is normal at < 35 mmHg. Trace/mild (physiologic) pulmonic regurgitation. The aortic root size is normal. IVC Not well visulized. There is no pericardial effusion. CONCLUSIONS -------- 1. Sinus rhythm. 2. This was a technically difficult study with suboptimal views. Limited off axis apicals. Pt had to sit in chair. 3. The left ventricular size is normal. 4. There is moderate concentric left ventricular hypertrophy. 5. Overall left ventricular systolic function is normal with, an EF between 55 - 60 %. 6. The right ventricle is normal in size. 7. The left atrial size is normal. 8. The right atrial size is normal. 9. The aortic valve is trileaflet and appears structurally normal. 10. The mitral valve is normal. 11. There is trace mitral regurgitation. 12. The tricuspid valve appears structurally normal. 13. Trace tricuspid regurgitation present. 14. Right ventricular systolic pressure is normal at < 35 mmHg. 15. Trace/mild (physiologic) pulmonic regurgitation. 16. The aortic root size is normal. 17. IVC Not well visulized. 18. There is no pericardial effusion. ANALYST PROGRAMMER: Carolyn Hancock RDCS
[2019-12-15] MEDS: MULTIVITAMINS, THERA 1 EACH TAB PO SCH (12:49)
--- NOTE | 2019-12-15 17:09 | PN ---
PROGRESS NOTE DATE OF SERVICE: 12/15/2019 This 34-year-old woman who was admitted with acute COVID pneumonia also had bilateral lesions. The patient also had some hypoxia initially, but currently the patient complains of severe nausea and vomiting today. The patient also has some continued diarrhea. The patient complains of weakness, also. Multiple consultants, including Pulmonary and Infectious Disease, are following the patient closely. A 2D echo with Doppler showed ejection fraction 55% to 60% and no significant valvular abnormalities. C-reactive protein is 37.5. LDH is normal at this time and the troponins are also within normal limits. The most recent serum acetone is negative. The patient is being closely monitored. Past medical history reviewed. REVIEW OF SYSTEMS: CARDIOVASCULAR SYSTEM: No angina, palpitations. RESPIRATORY SYSTEM: As mentioned earlier. GI: As mentioned earlier. : No dysuria or retention. NERVOUS SYSTEM: No numbness, weakness. CURRENT MEDICATIONS: Reviewed. They include: 1. Tylenol 320 q.6 p.r.n. 2. Ventolin p.r.n. 3. Xanax 0.25. 4. Vitamin C 500 mg daily. 5. Tessalon Perles. 6. Rocephin 1 gram daily. 7. Lovenox 40 mg subcutaneously b.i.d. 8. Pepcid 20 mg b.i.d. 9. Glucotrol 20 mg before meals b.i.d. 10.Robitussin 200 mg q.6 p.r.n. 11.Plaquenil 200 mg p.o. b.i.d. 12.NovoLog scale. 13.Levemir 30 units subcutaneously at bedtime. 14.Multivitamins 1 p.o. daily. 15.Restoril 15 mg at bedtime p.r.n. 16.Zinc oxide 220 mg p.o. daily. PHYSICAL EXAMINATION: Patient is alert and oriented x3. Pulse is 58, blood pressure 118/70, respirations 18, temperature 98 degrees, pulse ox 96% on room air. HEENT: Conjunctivae normal. Oral mucosa moist. NECK: No jugular venous distention. No carotid bruit. No lymph node enlargement. CARDIOVASCULAR SYSTEM: S1, S2 muffled. RESPIRATORY SYSTEM: Breath sounds diminished at the bases. A few scattered rhonchi. ABDOMEN: Soft, non-tender. No mass palpable. LEGS: No edema. No swelling. NERVOUS SYSTEM: No focal deficit. LABS: WBC 3.5, hemoglobin 12.9, sodium 138, potassium 3.8. Glucose is 240 and C- reactive protein is 37.9. C difficile testing is being done. LDH is 570. ASSESSMENT: 1. Acute COVID-19 pneumonia, bilateral; viral patchy pneumonia, right more than the left with acute hypoxic respiratory failure with possible sepsis, present on admission. 2. Acute diabetic ketoacidosis with uncontrolled blood sugars, diabetes mellitus, type 2, present on admission. 3. Nausea, vomiting and acute diarrhea, possibly gastroenteritis type of presentation for COVID. Rule out C difficile. 4. Elevated inflammatory markers, including secondary to above. 5. Morbid obesity with body mass index of 39.7. 6. History of noncompliance with medications. 7. Anxiety, bipolar. 8. Attention deficit disorder, attention deficit hyperactivity disorder. 9. History of deep venous thrombosis prophylaxis. 10.Possible acute metabolic acidosis secondary to diabetic ketoacidosis. RECOMMENDATIONS AND DISCUSSION: In this 34-year-old woman who presented with multiple complex medical issues, we will monitor the patient closely, continue the current medications, continue symptomatic treatment. Otherwise at this time I would cut back the diet to clear liquids and advance the diet once the patient's GI symptoms are improved. I recommend a dose of Protonix. Otherwise, closely follow with multiple consultants and continue to monitor. Continue the antibiotics. Guarded prognosis. Further recommendations to follow. MMMARTAL / LANCEN: [id number] / MTDD
[2019-12-15] MEDS: PANTOPRAZOLE 40 MG/10 ML VIAL IVP SCH (17:52)
--- NOTE | 2019-12-15 18:33 | PN ---
PROGRESS NOTE DATE OF SERVICE: 12/15/2019 REASON FOR FOLLOWUP: Acute COVID-19 infection. INTERVAL HISTORY: The patient is currently afebrile. Apparently the patient did have an episode of vomiting and diarrhea this morning. Slightly upset about it. Now breathing comfortably. No chest pain. Cough has been no worsening. PHYSICAL EXAMINATION: Blood pressure 104/72 with a pulse of 79, temperature 98. She is 97% on room air. General description is a middle-aged female up in the chair in no distress. RESPIRATORY SYSTEM: Unlabored breathing with decreased intensity of breath sounds. No wheeze. HEART: S1, S2. Regular rate and rhythm. ABDOMEN: Soft. No tenderness. LABS: Hemoglobin is 12.9, white count 3.5, BUN of 20, creatinine 0.52. Blood culture has been negative. DIAGNOSTIC IMPRESSION AND PLAN: Patient with acute COVID-19 pneumonia in this patient whose fever has resolved. She is current not requiring supplemental oxygen. Will complete her Plaquenil therapy as of tomorrow. Continue with the zinc, Tessalon Perles. Protonix has been added for her GI. Monitor clinical course closely. MMODL / IJN: [id number] /
[2019-12-15] MEDS: INSULIN DETEMIR (LEVEMIR) 100 UNIT/ML SYR SQ SCH (21:21)
[2019-12-16] MEDS: INSULIN ASPART (NovoLOG) 100 UNIT/ML VIAL SQ SCH ×7 (07:49→20:54)
[2019-12-16] MEDS: glipiZIDE 10 MG TAB PO SCH ×2 (07:50→17:28)
[2019-12-16] MEDS: FAMOTIDINE 20 MG TAB PO SCH (07:50)
[2019-12-16] MEDS: ZINC SULFATE 220 MG CAP PO SCH (07:50)
[2019-12-16] MEDS: ASCORBIC ACID 500 MG TAB PO SCH (07:50)
[2019-12-16] MEDS: HYDROXYCHLOROQUINE SULFATE 200 MG TAB PO SCH (07:51)
[2019-12-16] MEDS: ENOXAPARIN 40 MG/0.4 ML SYRINGE SQ SCH (07:51)
[2019-12-16 07:53] LABS: Glucose,Whole Blood 260 mg/dL (75-99)
[2019-12-16 07:53] LABS: Glucose,Whole Blood 225 mg/dL (75-99)
[2019-12-16] MEDS: PANTOPRAZOLE 40 MG/10 ML VIAL IVP SCH (07:54)
[2019-12-16 08:02] LABS: Glucose,Whole Blood 201 mg/dL (75-99)
[2019-12-16] MEDS ORDERED: ALBUTEROL HFA INHALER INHALATION PRN (08:23)
[2019-12-16 09:21] LABS: Basophils # (A) 0.1 k/uL (0-0.2); Basophils % (A) 2 %; Eosinophils % (A) 1 %; HCT 43.5 % (34.0-46.0); HGB 13.8 gm/dL (11.4-16.0); Hypochromasia Slight; Lymphocytes % (A) 36 %; MCH 27.5 pg (25.0-35.0); MCHC 31.6 g/dL (31.0-37.0); MCV 87.1 fL (80.0-100.0); Mean Platelet Volume 11.8; Monocytes # (A) 0.2 k/uL (0-1.0); Monocytes % (A) 6 %; Neutrophils # (A) 1.4 k/uL (1.3-7.7); Neutrophils % (A) 51 %; RDW 13.9 % (11.5-15.5); WBC 2.8 k/uL (3.8-10.6)
[2019-12-16 09:23] LABS: Platelet Count 281 k/uL (150-450)
[2019-12-16 09:24] LABS: African American GFR (CKD) >90 (>60 ml/min/1.73 sqM); Anion Gap 10 mmol/L; Blood Urea Nitrogen 14 mg/dL (7-17); Calcium 8.9 mg/dL (8.4-10.2); Carbon Dioxide 23 mmol/L (22-30); Chloride 105 mmol/L (98-107); Glucose 217 mg/dL (74-99); Non-African American GFR(CKD) >90 (>60 ml/min/1.73 sqM); Potassium 3.6 mmol/L (3.5-5.1); Sodium 138 mmol/L (137-145)
--- NOTE | 2019-12-16 11:05 | XR ---
EXAMINATION TYPE: XR chest 1V portable DATE OF EXAM: 12/16/2019 COMPARISON: 12/14/2019 HISTORY: Follow-up for pneumonia. TECHNIQUE: Single frontal view of the chest is obtained. FINDINGS: Similar hazy right basilar opacity. Improved retrocardiac opacity with improved visualizat ion of the left hemidiaphragm border. Upper lobes are well aerated. Stable cardiomediastinal silhouet te. No acute osseous process. IMPRESSION: Improved left basilar airspace disease and stable right basilar patchy opacity either re presenting atelectasis or pneumonia.
[2019-12-16 12:22] LABS: Glucose,Whole Blood 221 mg/dL (75-99)
--- NOTE | 2019-12-16 12:44 | P.PN ---
Subjective Progress Note Date: 12/16/19 Principal diagnosis: Acute CoVID 19 pneumonia This is a very pleasant 34-year-old -[place] female patient who follows with Dr. Verona Dunaway as her primary care provider. She has a history of obesity, ADHD, anxiety, bipolar disorder, diabetes mellitus and is maintained on glipizide in the outpatient setting. Former smoker. She presented here to the emergency room yesterday after a one-week history of increasing shortness of breath, cough and congestion. She also was having issues with diarrhea. She did see her PCP on 12/08/2019 and was initiated on Levaquin for suspected pneumonia. She states her doctor did want her to go to the hospital that she did not at that time. She feels she may have picked it up from her who was at a where people had it she also had been to [facility] last week. She began developing symptoms after that. She states her is also home sick. She did test positive for the jorgensen virus. Chest x-ray revealed patchy bilateral airspace disease. We're consulted for the same. She is seen today on the regular medical floor. She is awake and alert in no acute distress. She is sitting up at the bedside. She does have a loose nonproductive cough. She is dyspneic with minimal conversation and exertion. She is maintaining O2 saturations in the 90s on 2 L/m per nasal cannula. Current temperature 102.8. She is slightly tachycardic. Blood pressure stable. White count 4.2. Hemoglobin 13.1. Platelets 137. Lymphocytes 0.4. D-dimer 0.90. Sodium 137. Potassium 3.7. Bicarb 20. Creatinine 0.64. Glucose 289. LDH 814. C-reactive protein 151. Ferritin is pending. Lactic acid 0.6. She has been initiated on Plaquenil, and ceftriaxone. She did receive 1 dose of azithromycin today. EKG with QT interval less than 500 ms. On 12/12/2019 patient seen in follow-up for general medical floor. She states she is feeling better, breathing easier, she remains on supplemental oxygen, currently on 2 L, her pulse ox is 91-95%, afebrile this morning, her last episode of fever was last night at 8:53 BPM, with a temp of 102.2F. Patient is on IV steroids, oral zinc, Rocephin, and Plaquenil. Today's labs have been reviewed, showing white blood cell count of 7.5, hemoglobin is 13.1, sodium was 137, potassium is 4.0, CO2 was 14, B1 is 9, creatinine is 0.53. LDH was 1117, CRP was 202, yesterday d-dimer was 0.90. Patient is on prophylactic dose of Lovenox. On 12/13/2019 patient is seen in follow-up on a general medical floor, still has occasional coughing fits, but overall feeling better, she is on 2 L of oxygen with pulse ox of 94-95%, did have a fever spike last night with a temp of 10 1.1F. Afebrile this morning, no worsening shortness of breath, today's chest x-ray shows somewhat improved aeration at the left mid lung, residual lower lung infiltrates. Continues on empiric broad coverage in the form of Rocephin, she is completing her course of Plaquenil, she remains on IV Solu-Medrol 40 mg every 12 hours, she has developed hyperglycemia and she is on Levemir 10 units daily, in addition to sliding scale insulin and Glucotrol was added. Patient remains on Lovenox at 40 mg twice daily. Denies markers were reviewed showing d-dimer of 0.38, LDH of 1209, troponin is less than 0.012, CRP is trending down slightly and is at 183.6. On 12/14/2019 patient seen in follow-up on general medical floor. Denies any specific complaints, only occasional cough, she is on room air, with a pulse ox of 92%, pulse ox on 2 L is 95%, hemodynamically stable, she has been afebrile. Denies follow-up chest x-ray shows slight improvement in the appearance of bibasilar infiltrates, and interval development of the suspected left pleural effusion. Today's labs have been reviewed, white blood cell count 6.2, lymphocyte count is 0.4, electrolytes are within normal limits, B1 of 16 and cre atinine was 0.47. Yesterday's d-dimer was 0.38. CRP is down to 75.6, trending down, and LDH is down to 786. Patient remains on IV steroids, Plaquenil, and Rocephin for empiric antibiotic coverage, yesterday will cut back to IV Solu- Medrol to 20 mg twice daily, patient developed steroid-induced hyperglycemia, will increase the dose of Levemir, patient remains on Glucotrol, and sliding scale insulin, on today's labs her blood sugars are still elevated in the 300s, and serum acetone was positive. We can stop the IV steroids altogether today On 12/15/2019 patient seen in follow-up on general medical floor, she sits up in the chair, denies any breathing difficulty, she is intermittently wearing 2 L of oxygen, room air pulse ox was 96%, breathing seems to be nonlabored, she is afebrile. However since this morning patient developed nausea vomiting and 2 episodes of diarrhea. She remains on hydroxychloroquine, and Rocephin for empiric antibiotic coverage, in addition to zinc sulfate. Today's labs have been reviewed showing white blood cell count of 3.5, hemoglobin of 12.9, electrolytes were within normal limits, B1 is 20 creatinine 0.52, LDH is trending down to 570, and CRP is down to 37.9. No new chest x-ray today. The patient is seen today 12/16/2019 in follow-up on the regular medical floor. She is currently sitting up in a chair at the bedside. Awake and alert in no acute distress. Denies any worsening shortness of breath. Continues with a dry nonproductive cough. No fever or chills. No nausea, vomiting or diarrhea. She is maintaining O2 saturations up to 100% on room air. She's afebrile. Hemodynamically stable. White count 2.8. Hemoglobin 13.8. Sodium 138. Potassium 3.6. Creatinine 0.43. She remains on ceftriaxone. She's completed a course of Plaquenil. She remains on zinc and vitamin C. Lovenox for DVT prophylaxis. Follow-up chest x-ray reveals improved left basilar airspace disease in a stable right basilar patchy opacity. Objective - Vital Signs Vital signs: Vital Signs Temp 98.0 F 12/16/19 07:00 Pulse 71 12/16/19 07:00 Resp 18 12/16/19 07:00 BP 125/78 12/16/19 07:00 Pulse Ox 100 12/16/19 07:00 Intake & Output 12/15/19 12/16/19 12/16/19 18:59 06:59 18:59 Intake Total 20 Balance 20 Intake: Oral 20 Other: Voiding Method Toilet # Voids 1 1 - Exam GENERAL EXAM: Alert, active, very pleasant 34-year-old female, on room air comfortable in no apparent distress. HEAD: Normocephalic. EYES: Normal reaction of pupils, equal size. NOSE: Clear with pink turbinates. THROAT: No erythema or exudates. NECK: No masses, no JVD. CHEST: No chest wall deformity. LUNGS: Equal air entry with no crackles, wheeze, rhonchi or dullness. CVS: S1 and S2 normal with no audible murmur, regular rhythm. ABDOMEN: No hepatosplenomegaly, normal bowel sounds, no guarding or rigidity. SPINE: No scoliosis or deformity SKIN: No rashes CENTRAL NERVOUS SYSTEM: No focal deficits, tone is normal in all 4 extremities. EXTREMITIES: There is no peripheral edema. No clubbing, no cyanosis. Periphe ral pulses are intact. - Labs CBC & Chem 7: 12/16/19 08:32 12/16/19 08:32 Labs: Abnormal Lab Results - Last 24 Hours (Table) 12/15/19 12/15/19 12/16/19 Range/Units 17:09 20:18 07:03 WBC (3.8-10.6) k/uL Creatinine (0.52-1.04) mg/dL Glucose (74-99) mg/dL POC Glucose (mg/dL) 225 H 260 H 201 H (75-99) mg/dL 12/16/19 12/16/19 12/16/19 Range/Units 08:32 08:32 12:19 WBC 2.8 L (3.8-10.6) k/uL Creatinine 0.43 L (0.52-1.04) mg/dL Glucose 217 H (74-99) mg/dL POC Glucose (mg/dL) 221 H (75-99) mg/dL Microbiology - Last 24 Hours (Table) 12/10/19 23:24 Blood Culture - Preliminary Blood No Growth after 120 hours Assessment and Plan Assessment: 1 Acute CoVID 19 pneumonia, chest x-ray reveals patchy bilateral airspace disease. 2 Febrile illness secondary to above, recovered 3 Diarrhea secondary to above, recovered 4 Elevated LDH, C-reactive protein, d-dimer. Ferritin pending. Secondary to above 5 Diabetes mellitus 6 Obesity 7 ADHD 8 History of anxiety 9 History of bipolar disorder Plan: The patient was seen and evaluated by Dr. Perez Chest x-ray reveals improved left basilar airspace disease and stable right basilar patchy opacity. 100 percent FiO2 on room air She is cleared for discharge from pulmonary standpoint I, the cosigning physician, performed a history & physical examination of the patient. Lungs sounds with bilateral scattered rhonchi. Maintaining good O2 saturations in the 90s on 2 L/m per nasal cannula. I discussed the assessment and plan of care with my nurse practitioner, Aletha Augustin. I attest to the above consultation as dictated by her.
[2019-12-16] MEDS: MULTIVITAMINS, THERA 1 EACH TAB PO SCH (12:48)
--- NOTE | 2019-12-16 16:24 | PN ---
PROGRESS NOTE DATE OF SERVICE: 12/16/2019 This is a 34-year-old woman who was admitted with acute COVID-19 pneumonia, also had complaints of weakness. Patient also has some diarrhea. The most recent chest x-ray done today showed some improvement. The patient will be closely monitor monitored. Patient complains of weakness, also multiple consultants are following the patient closely. PAST MEDICAL HISTORY: Reviewed. REVIEW OF SYSTEMS: CARDIOVASCULAR SYSTEM: No angina. RESPIRATORY: As mentioned earlier. GI: As mentioned earlier. : No dysuria. NERVOUS SYSTEM: No numbness or weakness. CURRENT MEDICATIONS: Reviewed and include: 1. Tylenol. 2. Ventolin. 3. Xanax. 4. Vitamin C. 5. Rocephin 1 g. 6. Lovenox. 7. Glucotrol. 8. Robitussin. 9. Levemir. 10.Multivitamins. 11.Protonix. 12.Restoril. PHYSICAL EXAM: Patient is alert, oriented x3. Pulse is a 78, blood pressure 124/78, respiration 18, temperature 98.4, pulse ox 97% on 2 L. HEENT: Conjunctivae normal. NECK: No jugular venous distension. CARDIOVASCULAR SYSTEM: S1, S2, muffled. RESPIRATORY: Breath sounds diminished at the bases, a few scattered rhonchi, no crackles. ABDOMEN: Soft, nontender. LEGS: No edema, no swelling. NERVOUS SYSTEM: No focal deficits. LABS: WBC is 2.8 and glucose 217. ASSESSMENT: 1. Acute COVID-19 pneumonia, bilateral, viral patchy pneumonia, right more the left with acute hypoxic respiratory failure with possible sepsis, present on admission. 2. Acute diabetic ketoacidosis with uncontrolled blood sugars, diabetes type 2, present on admission. 3. Nausea, vomiting with acute diarrhea, possibly gastroenteritis type of presentation for COVID-19. 4. Elevated inflammatory markers, including secondary to above. 5. Morbid obesity with body mass index of 13.7. 6. History of noncompliance with medications. 7. Anxiety, bipolar. 8. ADD, ADHD. 9. History of DVT prophylaxis. 10.Possible acute metabolic acidosis secondary to DKA, present on admission. 11.Leukopenia, possibly secondary to COVID-19. RECOMMENDATION: Recommend to continue current management and symptomatic treatment. Will repeat labs tomorrow. Otherwise, will continue to monitor and guarded prognosis because of multiple complex medical issues. Further recommendations to follow. MMODL / IJN: [id number] /
--- NOTE | 2019-12-16 16:39 | PN ---
PROGRESS NOTE DATE OF SERVICE: 12/16/2019. REASON FOR FOLLOWUP: Acute COVID-19 infection. INTERVAL HISTORY: The patient is currently afebrile, patient is breathing comfortably. The patient's cough has decreased in intensity. No chest pain. No further nausea, vomiting or diarrhea, overall feeling better. PHYSICAL EXAMINATION: Blood pressure 124/78 with a pulse of 73, temperature 98.4, she is 97% on room air. General description is a middle-aged female up in the chair, in no distress. RESPIRATORY SYSTEM: Unlabored breathing, decreased intense breath sounds, no wheeze. HEART: S1, S2. Regular rate and rhythm. ABDOMEN: Soft, no tenderness. LABS: Hemoglobin is 13.8, white count of 2.8. BUN of 14, creatinine 0.43. DIAGNOSTIC IMPRESSION AND PLAN: Patient with acute COVID-19 pneumonia has been adequately treated. The patient did have resolution of her fever and lymphopenia. May consider tapering course of steroids, bronchodilators and zinc and monitor clinical course closely. MMODL / IJN: [id number] /
[2019-12-16 17:05] LABS: Glucose,Whole Blood 188 mg/dL (75-99)
[2019-12-16 18:00] LABS: ALT 34 U/L (4-34); AST 24 U/L (14-36); African American GFR (CKD) >90 (>60 ml/min/1.73 sqM); Albumin 3.7 g/dL (3.5-5.0); Alkaline Phosphatase 86 U/L (38-126); Anion Gap 10 mmol/L; Blood Urea Nitrogen 12 mg/dL (7-17); Calcium 9.1 mg/dL (8.4-10.2); Carbon Dioxide 26 mmol/L (22-30); Chloride 102 mmol/L (98-107); Glucose 194 mg/dL (74-99); Magnesium 2.2 mg/dL (1.6-2.3); Non-African American GFR(CKD) >90 (>60 ml/min/1.73 sqM); Potassium 3.5 mmol/L (3.5-5.1); Sodium 138 mmol/L (137-145); Total Bilirubin 0.4 mg/dL (0.2-1.3); Total Protein 7.2 g/dL (6.3-8.2)
[2019-12-16 20:34] LABS: Glucose,Whole Blood 271 mg/dL (75-99)
[2019-12-16] MEDS: INSULIN DETEMIR (LEVEMIR) 100 UNIT/ML SYR SQ SCH (20:54)
[2019-12-17 07:35] LABS: Glucose,Whole Blood 212 mg/dL (75-99)
[2019-12-17] MEDS: ASCORBIC ACID 500 MG TAB PO SCH (08:54)
[2019-12-17] MEDS: glipiZIDE 10 MG TAB PO SCH ×2 (08:54→17:21)
[2019-12-17] MEDS: ZINC SULFATE 220 MG CAP PO SCH (08:55)
[2019-12-17] MEDS: MULTIVITAMINS, THERA 1 EACH TAB PO SCH (08:55)
[2019-12-17] MEDS: ENOXAPARIN 40 MG/0.4 ML SYRINGE SQ SCH (08:55)
[2019-12-17] MEDS: INSULIN ASPART (NovoLOG) 100 UNIT/ML VIAL SQ SCH ×7 (08:55→21:57)
[2019-12-17] MEDS: PANTOPRAZOLE 40 MG TABLET PO SCH (08:56)
[2019-12-17 09:42] LABS: Basophils % (A) 1 %; Eosinophils # (A) 0.1 k/uL (0-0.7); Eosinophils % (A) 4 %; HCT 43.6 % (34.0-46.0); Hypochromasia Slight; Lymphocytes # (A) 0.8 k/uL (1.0-4.8); Lymphocytes % (A) 30 %; MCV 87.3 fL (80.0-100.0); Mean Platelet Volume 8.6; Monocytes # (A) 0.2 k/uL (0-1.0); Monocytes % (A) 9 %; Neutrophils # (A) 1.5 k/uL (1.3-7.7); Neutrophils % (A) 55 %; Platelet Count 294 k/uL (150-450); RBC 4.99 m/uL (3.80-5.40); RDW 13.6 % (11.5-15.5); WBC 2.6 k/uL (3.8-10.6)
[2019-12-17 09:51] LABS: ALT 33 U/L (4-34); AST 26 U/L (14-36); African American GFR (CKD) >90 (>60 ml/min/1.73 sqM); Albumin 3.6 g/dL (3.5-5.0); Alkaline Phosphatase 82 U/L (38-126); Anion Gap 10 mmol/L; Blood Urea Nitrogen 11 mg/dL (7-17); Carbon Dioxide 26 mmol/L (22-30); Chloride 102 mmol/L (98-107); Glucose 227 mg/dL (74-99); Non-African American GFR(CKD) >90 (>60 ml/min/1.73 sqM); Potassium 3.8 mmol/L (3.5-5.1); Sodium 138 mmol/L (137-145); Total Bilirubin 0.5 mg/dL (0.2-1.3); Total Protein 6.8 g/dL (6.3-8.2)
[2019-12-17 11:37] LABS: Glucose,Whole Blood 182 mg/dL (75-99)
[2019-12-17 16:54] LABS: Glucose,Whole Blood 272 mg/dL (75-99)
--- NOTE | 2019-12-17 18:22 | PN ---
PROGRESS NOTE DATE OF SERVICE: 12/17/2019 This 34-year-old woman who was admitted with acute Covid pneumonia is being closely monitored at this time. The patient also had uncontrolled blood sugars. Patient also had significant at this time. Patient has some diarrhea which is improving. The chest x-ray yesterday showed some improvement. Multiple consultants, including Pulmonary and ID are following the patient closely. The cardiac workup is basically negative including repeat Summers virus is still positive. PHYSICAL EXAMINATION: Alert and oriented x3. Pulse is 85. Blood pressure 102/58, respirations 16, temp 98.1, pulse ox 97% on room air. HEENT: Conjunctivae normal. NECK: No JVD. CARDIOVASCULAR: S1, S2 muffled. RESPIRATORY: Breath sounds diminished in the bases. A few scattered rhonchi. ABDOMEN soft. NERVOUS SYSTEM: No focal deficits. LABS: WBC 2.6, hemoglobin 14. Glucose 227. ASSESSMENT: 1. Acute COVID-19 pneumonia, bilateral, viral patchy pneumonia, right more than the left with acute hypoxic respiratory failure with possible sepsis, present on admission. 2. Acute diabetic ketoacidosis, uncontrolled diabetes type 2, present on admission with hyperglycemia. 3. Nausea and vomiting with acute diarrhea, possibly secondary to gastroenteritis type of presentation of Covid 19. 4. Elevated inflammatory markers, including secondary to above. 5. Morbid obesity with body mass index of 13.7. 6. History of noncompliance with medications. 7. Anxiety, bipolar. 8. Attention-deficit disorder/attention-deficit/hyperactivity disorder. 9. History of deep vein thrombosis prophylaxis. 10.Possible acute metabolic acidosis secondary to diabetic ketoacidosis, present on admission. 11.Leukopenia, possibly secondary to Covid 19. DISCUSSION AND RECOMMENDATIONS: Recommend to continue current medications, symptomatic treatment. Otherwise, continue with isolation. Continue with empiric and antibiotics. Otherwise monitor the blood sugars closely which is improving with a basal bolus strategy. Otherwise, we will continue to monitor. Prognosis guarded because of multiple complex medical issues. Further recommendations to follow. I recommend the patient to follow up with Dr. Verona Chauhan and multiple consultants after improvement but however please note the overall prognosis remains extremely guarded because of the positive Covid testing. MMODL / IJN: [id number] /
[2019-12-17 20:54] LABS: Glucose,Whole Blood 197 mg/dL (75-99)
[2019-12-17] MEDS: INSULIN DETEMIR (LEVEMIR) 100 UNIT/ML SYR SQ SCH (21:57)
--- NOTE | 2019-12-17 22:13 | PN ---
PROGRESS NOTE DATE OF SERVICE: 12/17/2019 REASON FOR FOLLOW UP: Covid-19 pneumonia. INTERVAL HISTORY: The patient is currently afebrile. The patient is breathing comfortably. The patient denies having any chest pain. Occasional cough. No further nausea, vomiting, abdominal pain, or any diarrhea. PHYSICAL EXAMINATION: Blood pressure 117/72 with a pulse of 84, temperature 98.6. She is 97% on room air. General description: The patient is a middle-aged female up in the chair in no distress. Respiratory system: Unlabored breathing. Decreased intensity of breath sounds. No wheeze. HEART: S1, S2. Regular rate and rhythm. Abdomen soft, no tenderness. LABS: Hemoglobin is 14. White count 2.6, BUN of 11, creatinine 0.46. DIAGNOSTIC IMPRESSION AND PLAN: Patient with acute COVID-19 pneumonia, adequately treated. Test will be positive as well as antigen test and does not indicate a live virus or any infection in view of clinical response. Overall resolution of her symptoms. No need for any further therapy specific for the Covid 19 at this point. Continue supportive care. MMODL / IJN: [id number] /
[2019-12-18 06:46] LABS: Basophils % (A) 1 %; Eosinophils # (A) 0.1 k/uL (0-0.7); Eosinophils % (A) 3 %; HCT 41.2 % (34.0-46.0); Hypochromasia Slight; Lymphocytes # (A) 0.8 k/uL (1.0-4.8); Lymphocytes % (A) 29 %; MCH 27.9 pg (25.0-35.0); MCHC 31.5 g/dL (31.0-37.0); MCV 88.5 fL (80.0-100.0); Mean Platelet Volume 8.5; Monocytes # (A) 0.2 k/uL (0-1.0); Monocytes % (A) 9 %; Neutrophils # (A) 1.5 k/uL (1.3-7.7); Neutrophils % (A) 56 %; Platelet Count 276 k/uL (150-450); RBC 4.65 m/uL (3.80-5.40); RDW 13.9 % (11.5-15.5); WBC 2.7 k/uL (3.8-10.6)
[2019-12-18 07:45] LABS: Glucose,Whole Blood 224 mg/dL (75-99)
--- NOTE | 2019-12-18 08:29 | XR ---
EXAMINATION TYPE: XR chest 1V portable DATE OF EXAM: 12/18/2019 HISTORY: eval pneumonia. REFERENCE: Previous study dated 12/16/2019. FINDINGS: There is continued improvement in aeration of both lungs. Some, bilateral basilar airspace disease persists but this is fairly markedly improved. Pleural space are clear. Heart size upper limi ts of normal. IMPRESSION: IMPROVED AERATION, BOTH LUNGS.
[2019-12-18] MEDS: ASCORBIC ACID 500 MG TAB PO SCH (08:45)
[2019-12-18] MEDS: ZINC SULFATE 220 MG CAP PO SCH (08:45)
[2019-12-18] MEDS: INSULIN ASPART (NovoLOG) 100 UNIT/ML VIAL SQ SCH ×7 (08:45→22:13)
[2019-12-18] MEDS: ENOXAPARIN 40 MG/0.4 ML SYRINGE SQ SCH (08:45)
[2019-12-18] MEDS: glipiZIDE 10 MG TAB PO SCH ×2 (08:45→17:45)
[2019-12-18] MEDS: PANTOPRAZOLE 40 MG TABLET PO SCH (08:45)
[2019-12-18] MEDS: MULTIVITAMINS, THERA 1 EACH TAB PO SCH (08:45)
[2019-12-18 11:57] LABS: Glucose,Whole Blood 199 mg/dL (75-99)
--- NOTE | 2019-12-18 17:01 | PN ---
PROGRESS NOTE DATE OF SERVICE: 12/18/2019 This 34-year-old woman was admitted with acute COVID pneumonia is improving at this time. No chest pain. No palpitations. No fever. Patient has some abdominal difficulties which are also getting better. COVID-19 rapid test is positive. PHYSICAL EXAMINATION: Alert and oriented x3. Pulse 75, blood pressure 107/59, respirations 18, temperature 98.4, pulse ox 97% on room air HEENT: Conjunctivae normal. Oral mucosa moist. NECK: No jugular venous distention. No lymph node enlargement. CARDIOVASCULAR: S1, S2. RESPIRATORY: Diminished breath sounds at the bases. A few rhonchi. ABDOMEN: Soft, nontender. LEGS: No edema, no swelling. NERVOUS SYSTEM: No focal deficits. LAB STUDIES: WBC 2.7. Otherwise, other labs are noted. ASSESSMENT: 1. Acute COVID-19 pneumonia bilateral, viral patchy pneumonia, right more the left with acute hypoxic respiratory failure with possible sepsis present on admission, improving gradually. 2. Acute diabetic ketoacidosis, uncontrolled diabetes type 2, present on admission with hyperglycemia. 3. Nausea and vomiting with acute diarrhea possibly secondary to gastroenteritis type of presentation of COVID-19. 4. Elevated inflammatory markers secondary to above. 5. Morbid obesity with body mass index of 39.7. 6. History of noncompliance with medications. 7. Anxiety, bipolar. 8. Attention deficit disorder, attention deficit hyperactivity disorder. 9. History of deep vein thrombosis. 10.Possible acute metabolic acidosis secondary to diabetic ketoacidosis, present on admission. 11.Leukopenia, possibly secondary to COVID-19. RECOMMENDATION: Recommend to continue current medications, continue to monitor, continue symptomatic treatment. Otherwise at this time I would recommend continue with antibiotics, bronchodilators. Guarded prognosis because of multiple complex medical issues and further recommendations to follow. MMODL / IJN: [id number] /
[2019-12-18 17:26] LABS: Glucose,Whole Blood 176 mg/dL (75-99)
[2019-12-18 18:13] LABS: Appearance,Urine Turbid (Clear); Bacteria,Urine Many /hpf; Bilirubin,Urine Negative (Negative); Blood,Urine Negative (Negative); Color,Urine Yellow; Glucose,Urine (UA) 2+ (Negative); Ketones,Urine Trace (Negative); Leukocyte Esterase,Urine Negative (Negative); Mucus,Urine Many /hpf; Nitrite,Urine Negative (Negative); PH, Urine 5.5 (5.0-8.0); Protein,Urine 1+ (Negative); RBC,Urine 2 /hpf (0-5); Specific Gravity,Urine 1.036 (1.001-1.035); Squamous Epithelial Cell,Urine 3 /hpf (0-4); Urobilinogen,Urine <2.0 mg/dL (<2.0)
[2019-12-18 21:02] LABS: Glucose,Whole Blood 246 mg/dL (75-99)
[2019-12-18] MEDS: INSULIN DETEMIR (LEVEMIR) 100 UNIT/ML SYR SQ SCH (22:13)
--- NOTE | 2019-12-19 00:04 | PN ---
PROGRESS NOTE DATE OF SERVICE: 12/18/2019 REASON FOR FOLLOWUP: Acute COVID-19 pneumonia. INTERVAL HISTORY: The patient is currently afebrile. Patient is breathing comfortably. Patient denies having any chest pain. Cough has almost resolved. No nausea, no vomiting. No abdominal pain or diarrhea. PHYSICAL EXAMINATION: Blood pressure 99/67 with the pulse of 80, temperature 98.3. She is 98% on room air. General description is a middle-aged female up in the bed in no distress. RESPIRATORY SYSTEM: Unlabored breathing, decreased intense breath sounds. No wheeze. HEART: S1, S2. Regular rate and rhythm. ABDOMEN: Soft, no tenderness. LABS: Hemoglobin 13, white count 2.7. DIAGNOSTIC IMPRESSION AND PLAN: Patient with acute COVID-19 pneumonia. The patient underlying infection has been adequately treated. Chest x-ray showed improvement. She has completed her treatment with no specific steroids or Plaquenil on discharge. MMODL / IJN: [id number] /
[2019-12-19 07:01] LABS: Glucose,Whole Blood 302 mg/dL (75-99)
[2019-12-19] MEDS: glipiZIDE 10 MG TAB PO SCH (07:07)
[2019-12-19] MEDS: PANTOPRAZOLE 40 MG TABLET PO SCH (07:07)
[2019-12-19] MEDS: INSULIN ASPART (NovoLOG) 100 UNIT/ML VIAL SQ SCH ×4 (07:08→12:09)
[2019-12-19] MEDS: ASCORBIC ACID 500 MG TAB PO SCH (07:08)
[2019-12-19] MEDS: ZINC SULFATE 220 MG CAP PO SCH (07:08)
[2019-12-19] MEDS: ENOXAPARIN 40 MG/0.4 ML SYRINGE SQ SCH (07:09)
[2019-12-19 08:42] LABS: Basophils # (A) 0.1 k/uL (0-0.2); Basophils % (A) 2 %; Eosinophils # (A) 0.1 k/uL (0-0.7); Eosinophils % (A) 2 %; HCT 41.6 % (34.0-46.0); HGB 12.8 gm/dL (11.4-16.0); Hypochromasia Moderate; Lymphocytes % (A) 32 %; MCH 27.4 pg (25.0-35.0); MCHC 30.8 g/dL (31.0-37.0); Mean Platelet Volume 9.8; Monocytes # (A) 0.3 k/uL (0-1.0); Monocytes % (A) 11 %; Neutrophils # (A) 1.6 k/uL (1.3-7.7); Neutrophils % (A) 50 %; Platelet Count 261 k/uL (150-450); RBC 4.67 m/uL (3.80-5.40); RDW 13.9 % (11.5-15.5); WBC 3.1 k/uL (3.8-10.6)
[2019-12-19 11:23] VITALS: BP 103/72; PULSE 75; RESP 18; TEMP 98.2
[2019-12-19 11:32] LABS: Glucose,Whole Blood 195 mg/dL (75-99)
[2019-12-19] MEDS: MULTIVITAMINS, THERA 1 EACH TAB PO SCH (12:06)
--- NOTE | 2019-12-19 14:10 | P.PN ---
Progress Note - Text Progress Note Date: 12/19/19 INTERVAL HISTORY: The patient remains to be afebrile . Patient is breathing comfortably. Patient denies having any chest pain. No significant cough. No nausea, no vomiting. No abdominal pain or diarrhea. PHYSICAL EXAMINATION: Blood pressure 103/72 with the pulse of 75, temperature 98.2. She is 96% on room air. General description is a middle-aged female up in the bed in no distress. RESPIRATORY SYSTEM: Unlabored breathing, decreased intense breath sounds. No wheeze. HEART: S1, S2. Regular rate and rhythm. ABDOMEN: Soft, no tenderness. LABS: Hemoglobin 12.1 and of 3.1, lymphopenia resolved DIAGNOSTIC IMPRESSION AND PLAN: Patient with acute COVID-19 pneumonia. The patient underlying infection has been adequately treated. Chest x-ray showed improvement. Lymphopenia has resolved, the patient has completed her treatment with no need for further Plaquenil on discharge.
--- NOTE | 2019-12-19 15:47 | PN ---
PROGRESS NOTE PULMONARY/CRITICAL CARE PROGRESS NOTE: DATE OF SERVICE: 12/19/2019 This is a 34-year-old female with history of acute COVID-19 pneumonia. Her chest x-ray did show patchy bilateral airspace disease. In addition, she has a history of diarrhea, likely a result of her COVID-19 infection as well as elevated pro inflammatory markers including LDH, C-reactive protein, D-dimer, and ferritin. In addition, she has a history of diabetes, obesity, anxiety, bipolar disorder, and ADHD. Her primary care physician I believe is Dr. Licona. Anyway, the patient is doing reasonably well. She states that her breathing is fine. She has been weaned down to room air. She denies any pain or difficulty breathing. She denies any cough or phlegm production. There is no nausea, vomiting or diarrhea at this time. Current vital signs are reviewed, temperature is 98.2, heart rate is 75, respiratory rate 18, blood pressure 103/72 mean 82, room air saturation 96%. Appears in no acute distress. HEENT: Examination is grossly unremarkable. Mucous membranes are moist. No oral lesions. NECK: Supple. Full range of motion. No adenopathy or thyromegaly. Neck veins are flat. CARDIOVASCULAR: Examination reveals regular rhythm and rate. Heart rate is 75 beats per minute. S1, S2 normal. There is no S3, S4, or murmur. LUNGS: Reveal mostly clear breath sounds. No wheezes, rhonchi, or crackles. ABDOMEN: Soft, bowel sounds are heard. EXTREMITIES: Intact. No cyanosis, clubbing, or edema. SKIN: Without rash. NEUROLOGIC: Examination is brief but nonfocal. White count 3.1, hemoglobin 12.8, hematocrit 41.6, platelet count normal. The most recent chest x-ray from December 17 shows improved significant and significantly improved aeration bilaterally. Microbiology is negative. Medications are reviewed. ASSESSMENT: 1. Acute COVID-19 pneumonia, with improved aeration on chest x-ray. 2. Fever with myopathy and arthropathy, secondary to COVID-19 infection. 3. Significant gastrointestinal symptoms secondary to COVID-19 infection including primarily diarrhea but some abdominal cramping. 4. Elevated LDH, C-reactive protein and D-dimer, all pro-inflammatory markers in patients with COVID-19 infections. 5. Longstanding history of diabetes mellitus. 6. Obesity. 7. ADHD. 8. History of anxiety. 9. History of bipolar disorder. PLAN: Currently, the patient seems to be doing relatively well. Will continue to follow. Prognosis is guarded. The patient does seem to have significantly improved. Discharge as per hospitalist. No additional recommendations are made. Will be happy to see her in the office post discharge to follow up on her chest x-ray. MMODL / IJN: [id number] /
--- NOTE | 2019-12-19 17:47 | DS ---
DISCHARGE SUMMARY DATE OF SERVICE: 12/19/2019 FINAL DIAGNOSES: 1. Acute COVID-19 pneumonia, bilateral viral patchy pneumonia, right more than the left, with acute hypoxic respiratory failure with possible sepsis, present on admission, improved. 2. Acute diabetic ketoacidosis, uncontrolled diabetes mellitus, type 2, present on admission with hyperglycemia. 3. Nausea and vomiting with acute diarrhea possibly secondary to gastroenteritis type of presentation of COVID-19. 4. Elevated inflammatory markers secondary to above. 5. Morbid obesity with body mass index of 39.7. 6. History of noncompliance with medications. 7. Anxiety, bipolar. 8. Attention deficit disorder, attention deficit hyperactivity disorder. 9. History of deep vein thrombosis. 10.Possible acute metabolic acidosis secondary to diabetic ketoacidosis, present on admission. 11.Leukopenia, possibly secondary to COVID-19. DISCHARGE DISPOSITION: The patient will be discharged in stable condition with guarded prognosis. Total time taken 35 minutes. HISTORY OF PRESENT ILLNESS: This 34-year-old woman with a past medical history of multiple medical problems was admitted with acute COVID-19 bilateral pneumonia, sepsis and multiple other complications, as mentioned earlier. The patient was treated conservatively. Antibiotics were also given. Patient was given chloroquine and zinc, also. She was seen by Infectious Disease and Pulmonology. Patient improved significantly. The latest COVID-19 test is still positive on 12/17/2019 by the [facility]. On exam, vitals are stable. CARDIOVASCULAR SYSTEM: S1, S2 muffled. ABDOMEN: Soft. NERVOUS SYSTEM: No focal deficit. Patient will be discharged in stable condition with guarded prognosis. The patient was also given Levemir one time with Accu-Cheks before meals and at bedtime.. Continue to monitor. DISCHARGE ADVICE AND MEDICATIONS: 1. Diet is cardiac, consistent carb. 2. Activity limited until followup. 3. Follow up with Dr. Verona Chauhan as advised. 4. Follow up with Pulmonary and Infectious Disease p.r.n. 5. Glucotrol 20 mg p.o. b.i.d. 6. Levemir 40 units subcutaneously at bedtime. 7. Zinc sulfate 220 mg p.o. daily. 8. Protonix 40 mg p.o. daily. 9. Tylenol 320 mg q.6 p.r.n. 10.Albuterol p.r.n. 11.Vitamin C 500 mg p.o. daily. Once again, the patient will be discharged in stable condition with guarded prognosis. MMMARTAL / IJN: [id number] /
== END 2019-12-19 13:38 | disposition home or self-care (01) | DRG 871 ==
LOC: EC 21:58 → 4SSUR 12-11 01:18
PROVIDERS: ADMIT Internal Medicine; ATTEND Internal Medicine
DX: A41.89 Other specified sepsis (principal); E11.10 Type 2 diabetes mellitus with ketoacidosis without coma; U07.1 COVID-19; J12.89 Other viral pneumonia; J96.01 Acute respiratory failure with hypoxia; E66.01 Morbid (severe) obesity due to excess calories; F31.9 Bipolar disorder, unspecified; F41.9 Anxiety disorder, unspecified; F90.9 Attention-deficit hyperactivity disorder, unspecified type; T38.0X5A Adverse effect of glucocorticoids and synthetic analogues, initial encounter; D72.810 Lymphocytopenia; E11.65 Type 2 diabetes mellitus with hyperglycemia; Z68.39 Body mass index [BMI] 39.0-39.9, adult; Z79.4 Long term (current) use of insulin; Z83.3 Family history of diabetes mellitus; Z86.718 Personal history of other venous thrombosis and embolism; Z87.891 Personal history of nicotine dependence; Z91.14 Patient's other noncompliance with medication regimen; Z91.19 Patient's noncompliance with other medical treatment and regimen; Z91.011 Allergy to milk products; Z91.013 Allergy to seafood
CPT/HCPCS: 36415; 71045; 80048; 80053; 81001; 82009; 82728; 83605; 83615; 83735; 83880; 84145; 84484; 84703; 85025; 85379; 85610; 85730; 86140; 87040; 87502; 87635; 93005; 93306; 96361; 96365; 96375; 99285

== ENCOUNTER → 2019-12-22 | Outpatient (CLI) | payer MEDICARE, OTHER ==
[2019-12-22 12:35] LABS: Basophils % (A) 1 %; Eosinophils # (A) 0.1 k/uL (0-0.7); Eosinophils % (A) 2 %; HCT 39.5 % (34.0-46.0); HGB 12.6 gm/dL (11.4-16.0); Hypochromasia Slight; Lymphocytes # (A) 1.2 k/uL (1.0-4.8); Lymphocytes % (A) 39 %; MCH 27.7 pg (25.0-35.0); MCHC 31.9 g/dL (31.0-37.0); MCV 86.9 fL (80.0-100.0); Mean Platelet Volume 8.3; Monocytes # (A) 0.2 k/uL (0-1.0); Monocytes % (A) 7 %; Neutrophils # (A) 1.4 k/uL (1.3-7.7); Neutrophils % (A) 48 %; Platelet Count 297 k/uL (150-450); RBC 4.55 m/uL (3.80-5.40); RDW 13.4 % (11.5-15.5); WBC 2.9 k/uL (3.8-10.6)
[2019-12-22 18:27] LABS: African American GFR (CKD) 130.1 (60.0-200.0); Albumin/Globulin Ratio 1.67 (1.60-3.17); Anion Gap 11.7 mmol/L (4.00-12.00); BUN/Creat Ratio 18.57 Ratio (12.00-20.00); Calcium 9.3 mg/dL (8.7-10.3); Carbon Dioxide 27.3 mmol/L (21.6-31.8); Globulin 2.4 g/dL (1.6-3.3); Non-African American GFR(CKD) 112.3 (60.0-200.0); Potassium 4.4 mmol/L (3.5-5.5); Total Bilirubin 0.3 mg/dL (0.3-1.2); Total Protein 6.4 g/dL (6.2-8.2)
== END | disposition home or self-care (01) ==
LOC: LABWHC1 11:54
PROVIDERS: ATTEND Hospitalist
DX: U07.1 COVID-19 (principal)
CPT/HCPCS: 36415; 80053; 85025

== ENCOUNTER 2023-03-29 14:39 | Inpatient (IN) | payer MEDICARE, OTHER ==
[2023-03-29] MEDS ORDERED: ASPIRIN 81 MG PO STA (14:58)
[2023-03-29] MEDS ORDERED: NITROGLYCERIN SL TABS 0.4 MG TAB SUBLINGUAL STA (14:58)
--- NOTE | 2023-03-29 15:05 | ED ---
Chest Pain HPI - General Chief Complaint: Chest Pain Stated Complaint: Pain in Lt arm and chest Time Seen by Provider: 03/29/23 14:54 Source: patient, RN notes reviewed Mode of arrival: ambulatory Limitations: no limitations - History of Present Illness Initial Comments: 38-year-old female history diabetes who she admits she has not been taking care of the diabetes for past 5 months she ran out of medications and has not been taking them who presents with complaints of the onset of retrosternal chest pain with radiation to the back and left arm onset yesterday she did have some nausea yesterday for one episode states right now the pain is 4/10 severity doesn't seem to be getting any better or worse with movements and deep breathing. She personally has no history of heart disease is a family history of atrial fibrillation with her mother. 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 MD Complaint: chest pain - Related Data Home Medications Medication Instructions Recorded Confirmed No Known Home Medications 03/29/23 03/29/23 Allergies Allergy/AdvReac Type Severity Reaction Status Date / Time Fish Containing Products Allergy Nausea & Verified 03/29/23 17:59 [Fish] Vomiting & Diarrhea lactose AdvReac Severe Nausea & Verified 03/29/23 17:59 Vomiting & Diarrhea Pork/Porcine Containing AdvReac Nausea & Verified 03/29/23 17:59 Products Vomiting & [Pork] Diarrhea shellfish derived [Shellfish] AdvReac Anaphylaxis Verified 03/29/23 17:59 Review of Systems ROS Statement: Those systems with pertinent positive or pertinent negative responses have been documented in the HPI. ROS Other: All systems not noted in ROS Statement are negative. EKG Findings - EKG Results: EKG: interpreted by ERMD (EKG interpreted by pa sinus rhythm 93 VA interval 148 QRS duration 106 QT since QTC 380/431 muscle atrial enlargement nonspecific ST configuration this is compared with an EKG dated 12/10/19 showing similar configuration.) Past Medical History Past Medical History: Diabetes Mellitus Additional Past Medical History / Comment(s): 4 spontaneous vaginal deliveries. Patient's history is significant for noncompliance and history of positive group B strep. History of Any Multi-Drug Resistant Organisms: None Reported Past Surgical History: No Surgical Hx Reported Past Anesthesia/Blood Transfusion Reactions: No Reported Reaction Past Psychological History: ADD/ADHD, Anxiety, Bipolar Past Alcohol Use History: None Reported Past Drug Use History: None Reported - Past Family History Mother Family Medical History: Diabetes Mellitus General Exam - General Exam Comments Initial Comments: Is a well-developed well-nourished awake alert oriented 4 female Limitations: no limitations General appearance: alert, anxious Head exam: Present: atraumatic, normocephalic, normal inspection Eye exam: Present: normal appearance, PERRL, EOMI. Absent: scleral icterus, conjunctival injection, periorbital swelling ENT exam: Present: normal exam, mucous membranes moist Neck exam: Present: normal inspection, full ROM, other. Absent: tenderness, meningismus, lymphadenopathy Respiratory exam: Present: normal lung sounds bilaterally, chest wall tenderness (No stridor to be or bruits patient on the left costochondral margin). Absent: respiratory distress, wheezes, rales, rhonchi, stridor Cardiovascular Exam: Present: regular rate, normal rhythm, normal heart sounds. Absent: systolic murmur, diastolic murmur, rubs, gallop, clicks GI/Abdominal exam: Present: soft, normal bowel sounds. Absent: distended, tenderness, guarding, rebound, rigid Extremities exam: Present: normal inspection, full ROM, normal capillary refill. Absent: tenderness, pedal edema, joint swelling, calf tenderness Back exam: Present: normal inspection Neurological exam: Present: alert, oriented X3, CN II-XII intact Psychiatric exam: Present: normal affect, normal mood Skin exam: Present: warm, dry, intact, normal color. Absent: rash Course Vital Signs 03/29/23 14:45 Temperature 98 F Pulse Rate 90 Respiratory 20 Rate Blood Pressure 145/96 O2 Sat by Pulse 99 Oximetry - Reevaluation(s) Reevaluation #1: 03/29/23 18:41 EKG is some relief after aspirin and nitro. Heparin will be started Nitropaste. Patient improved down to a 3/10 and improving he states Chest Pain MDM - [facility] Chest x-ray interpreted by me no acute processes. I did discuss findings with the patient also with Dr. Grove patient does have elevated troponin no EKG changes chest pain has improved the. She will be admitted for evaluation by cardiology. Was pt. sent in by a medical professional or institution (, PA, COMMUNICATION EQUIPMENT REPAIRER, urgent care, hospital, or alf...) When possible be specific @ -No Did you speak to anyone other than the patient for history (EMS, parent, family, police, friend...)? What history was obtained from this source @ -No Did you review nursing and triage notes (agree or disagree)? Why? @ -I reviewed and agree with nursing and triage notes Were old charts reviewed (outside hosp., previous admission, EMS record, old EKG, old radiological studies, urgent care reports/EKG's, alf records)? Report findings @ -October 2019 old charts were reviewed Differential Diagnosis (chest pain, altered mental status, abdominal pain women, abdominal pain men, vaginal bleeding, weakness, fever, dyspnea, syncope, headache, dizziness, GI bleed, back pain, seizure, CVA, palpatations, mental health, musculoskeletal)? @ -not applicable EKG interpreted by me (3pts min.). @ -As above EKG interpreted by me sinus arrhythmia rate 93. Interval 148 QRS duration 106 QT since QTC 380/431 muscle left atrial enlargement nonspecific ST configuration today's EKG was compared with one dated 12/10/19 showing a similar configuration. X-rays interpreted by me (1pt min.). @ -None done CT interpreted by me (1pt min.). @ -None done U/S interpreted by me (1pt. min.). @ -None done What testing was considered but not performed or refused? (CT, X-rays, U/S, labs)? Why? @ -None What meds were considered but not given or refused? Why? @ -None Did you discuss the management of the patient with other professionals (professionals i.e. , PA, COMMUNICATION EQUIPMENT REPAIRER, lab, RT, psych nurse, social media project manager, room cleaner, teacher, traffic police officer, showcase maker)? Give summary @ -[place] English covering for Dr. Dunaway Was smoking cessation discussed for >3mins.? @ -No Was critical care preformed (if so, how long)? @ -31 minutes Were there social determinants of health that impacted care today? How? (Homelessness, low income, unemployed, alcoholism, drug addiction, transportation, low edu. Level, literacy, decrease access to med. care, intermediate, rehab)? @ -No Was there de-escalation of care discussed even if they declined (Discuss DNR or withdrawal of care, Hospice)? DNR status @ -No What co-morbidities impacted this encounter? (DM, HTN, Smoking, COPD, CAD, Cancer, CVA, ARF, Chemo, Hep., AIDS, mental health diagnosis, sleep apnea, morbid obesity)? @ -Diabetes] Was patient admitted / discharged? Hospital course, mention meds given and route, prescriptions, significant lab abnormalities, going to OR and other pertinent info. @ -hospital course was admitted to this facility for inpatient evaluation treatment of chest pain and elevated troponin and uncontrolled diabetes Undiagnosed new problem with uncertain prognosis? @ -No Drug Therapy requiring intensive monitoring for toxicity (Heparin, Nitro, Insulin, Cardizem)? @ -No Were any procedures done? @ -No Diagnosis/symptom? @ -Acute coronary syndrome, elevated troponin, hyperglycemia Acute, or Chronic, or Acute on Chronic? @ -Acute Uncomplicated (without systemic symptoms) or Complicated (systemic symptoms)? @ -Complicated Side effects of treatment? @ -No Exacerbation, Progression, or Severe Exacerbation? @ -No Poses a threat to life or bodily function? How? (Chest pain, [place], [place], pneumonia, PE, COPD, DKA, ARF, appy, cholecystitis, CVA, Diverticulitis, Homicidal, Suicidal, threat to staff... and all critical care pts) @ -S chest pain, elevated troponin Critical Care Time Critical Care Time: Yes Total Critical Care Time: 31 Disposition Clinical Impression: Acute coronary syndrome with high troponin, Chest pain, Hyperglycemia Disposition: ADMITTED IP TO THIS [facility] Condition: Stable Referrals: None,Stated [Primary Care Provider] - 1-2 days Decision Date: 03/29/23 Decision Time: 18:15
--- NOTE | 2023-03-29 15:12 | XR ---
EXAMINATION TYPE: XR chest 2V DATE OF EXAM: 03/29/2023 COMPARISON: NONE HISTORY: Chest pain TECHNIQUE: Frontal and lateral views of the chest are obtained. FINDINGS: There is no focal air space opacity. No evidence for pneumothorax. No pleural effusion. The cardiac silhouette size is within normal limits. The osseous structures are grossly intact. IMPRESSION: 1. No acute cardiopulmonary process.
[2023-03-29 15:14] LABS: Basophils % (A) 0 %; Eosinophils # (A) 0.2 k/uL (0-0.7); Eosinophils % (A) 3 %; HCT 43.9 % (34.0-46.0); HGB 14.7 gm/dL (11.4-16.0); Lymphocytes # (A) 1.7 k/uL (1.0-4.8); Lymphocytes % (A) 23 %; MCH 29.8 pg (25.0-35.0); MCHC 33.4 g/dL (31.0-37.0); Mean Platelet Volume 8.4; Monocytes # (A) 0.2 k/uL (0-1.0); Monocytes % (A) 3 %; Neutrophils # (A) 5.3 k/uL (1.3-7.7); Neutrophils % (A) 70 %; Platelet Count 289 k/uL (150-450); RBC 4.93 m/uL (3.80-5.40); RDW 13.5 % (11.5-15.5); WBC 7.6 k/uL (3.8-10.6)
[2023-03-29 15:27] LABS: Partial Thromboplastin Time 24.6 sec (22.0-30.0); Prothrombin Time 10.4 sec (9.0-12.0)
[2023-03-29 15:29] LABS: ALT 21 U/L (4-34); AST 35 U/L (14-36); African American GFR (CKD) >90 (>60 ml/min/1.73 sqM); Albumin 4.3 g/dL (3.5-5.0); Alkaline Phosphatase 119 U/L (38-126); Anion Gap 13 mmol/L; Blood Urea Nitrogen 4 mg/dL (7-17); Calcium 9.6 mg/dL (8.4-10.2); Carbon Dioxide 23 mmol/L (22-30); Chloride 100 mmol/L (98-107); Glucose 432 mg/dL (74-99); Lipase 104 U/L (23-300); Non-African American GFR(CKD) >90 (>60 ml/min/1.73 sqM); Potassium 3.6 mmol/L (3.5-5.1); Sodium 136 mmol/L (137-145); Total Bilirubin 0.6 mg/dL (0.2-1.3); Total Protein 7.4 g/dL (6.3-8.2)
[2023-03-29 15:35] LABS: NT-Pro-B-Type Natriuretic Pept 50 pg/mL
[2023-03-29] MEDS ORDERED: HEPARIN SODIUM 1,000 UN/ML (10ML VL) IV ONE (16:03)
[2023-03-29] MEDS ORDERED: HEPARIN SODIUM 1,000 UN/ML (10ML VL) IV PRN (16:03)
[2023-03-29] MEDS ORDERED: MORPHINE SULFATE 4 MG/ML SYRINGE IVP STA (16:04)
[2023-03-29] MEDS ORDERED: NITROGLYCERIN OINT 1 INCH/GM PACKET TOPICAL STA (16:04)
[2023-03-29] MEDS: HEPARIN SOD,PORK IN 0.45% NACL 25,000 UNIT in 0.45% NACL 1 250ML.BAG IV SCH (16:59)
[2023-03-29] MEDS ORDERED: NALOXONE 0.4 MG/ML 1 ML VIAL IVP PRN (18:48)
[2023-03-29] MEDS ORDERED: NITROGLYCERIN SL TABS 0.4 MG TAB SUBLINGUAL PRN (18:49)
[2023-03-29] MEDS ORDERED: DEXTROSE 50% SYRINGE 50 ML IVP PRN ×2 (18:51)
--- NOTE | 2023-03-29 19:00 | P.HPIM ---
History of Present Illness H&P Date: 03/29/23 Chief Complaint: Chest pain 38-year-old woman with uncontrolled diabetes is noncompliant with medications presented for chest pain. Patient says that her pain started yesterday and felt like a dull pressure-like sensation in the substernal area, then started having radiation down her left arm. She said that it did get a little bit worse with exertion. She denies palpitations. She denies lower extremity edema. She denies fevers, chills, nausea, vomiting, sleepy, presyncope, cough, dyspnea, abdominal pain, constipation, diarrhea, dysuria, dyschezia, numbness/weakness of extremities. She does not associate her pain with food. She does not associate her pain with position. In the emergency room, patient was afebrile, 145/96, heart rate 90, 99% on room air. CBC is unremarkable. Basic metabolic panel shows sodium of 136. Glucose was 432. Liver function tests are unremarkable. Lipase was 104. BNP was 50. Troponin was 0.309. Coags are unremarkable. D-dimer is 0.51. EKG shows normal sinus rhythm, normal axis, poor R-wave progression, possible ST elevation in lead 3, ST depressions in V2, V3, V4. Chest x-ray shows clear breath,, normal- sized heart. Case was discussed with the emergency room provider incision was made to admit the patient to hospital for further management of non-ST elevation KS. All Systems reviewed and pertinent positives and negatives noted in HPI, all other symptoms are negative Gen: in no apparent distress, resting comfortably in bed Eyes: PERRL, no scleral injection or icterus HENT: normocephalic, atraumatic, good hearing acuity, moist mucous membranes Neck: no tracheal deviation, full range of motion Resp: good air exchange, breathing comfortably with no accessory muscle use, no tactile fremitus, clear to auscultation bilaterally CVS: good distal perfusion x 4, no pitting edema, regular rate and rhythm withou t murmurs GI: soft, NTTP, ND, no hepatosplenomegaly : no suprapubic tenderness, no CVAT, espinal catheter not present MSK: no clubbing, no cyanosis, no noted contractures of extremities Skin: no noted rashes, petechiae; temperature of skin is appropriate Neuro: moving all extremities without signs of weakness, CN II-XII intact Psych: cooperative, euthymic mood, insight and judgment intact Labs and imaging as above Assessment: Non-ST elevation KS Uncontrolled diabetes type 2 Plan: Vital signs reviewed and noted in the HPI Lab work reviewed and noted in the HPI EKG and CXR are personally interpreted and noted in the HPI Case was discussed with the Emergency Room provider and decision was made to admit the patient for non-ST elevation KS Trend troponins Cardiology consult Echocardiogram Aspirin 81 mg daily, atorvastatin 80 mg at bedtime Heparin drip, follow PTT for toxicity Patient is full code Past Medical History Past Medical History: Diabetes Mellitus Additional Past Medical History / Comment(s): 4 spontaneous vaginal deliveries. Patient's history is significant for noncompliance and history of positive group B strep. History of Any Multi-Drug Resistant Organisms: None Reported Past Surgical History: No Surgical Hx Reported Past Anesthesia/Blood Transfusion Reactions: No Reported Reaction Past Psychological History: ADD/ADHD, Anxiety, Bipolar Past Alcohol Use History: None Reported Past Drug Use History: None Reported - Past Family History Mother Family Medical History: Diabetes Mellitus Medications and Allergies Home Medications Medication Instructions Recorded Confirmed Type No Known Home Medications 03/29/23 03/29/23 History Allergies Allergy/AdvReac Type Severity Reaction Status Date / Time Fish Containing Products Allergy Nausea & Verified 03/29/23 17:59 [Fish] Vomiting & Diarrhea lactose AdvReac Severe Nausea & Verified 03/29/23 17:59 Vomiting & Diarrhea Pork/Porcine Containing AdvReac Nausea & Verified 03/29/23 17:59 Products Vomiting & [Pork] Diarrhea shellfish derived [Shellfish] AdvReac Anaphylaxis Verified 03/29/23 17:59 Physical Exam Osteopathic Statement: *. No significant issues noted on an osteopathic structural exam other than those noted in the History and Physical/Consult. Vitals: Vital Signs Temp Pulse Resp BP Pulse Ox 03/29/23 14:45 98 F 90 20 145/96 99 Intake and Output 03/29/23 03/29/23 03/29/23 06:59 14:59 22:59 Other: Weight 93.894 kg Results CBC & Chem 7: 03/29/23 14:57 03/29/23 14:57 Labs: Abnormal Lab Results - Last 24 Hours (Table) 08/13/23 08/13/23 Range/Units 14:57 14:57 Sodium 136 L (137-145) mmol/L BUN 4 L (7-17) mg/dL Creatinine 0.42 L (0.52-1.04) mg/dL Glucose 432 H (74-99) mg/dL Troponin I 0.309 H* (0.000-0.034) ng/mL
[2023-03-29] MEDS ORDERED: INSULIN ASPART (NovoLOG) 100 UNIT/ML VIAL SQ ONE (19:48)
[2023-03-29] MEDS: ATORVASTATIN 80 MG TAB PO SCH (20:28)
[2023-03-29] MEDS: METOPROLOL TARTRATE 12.5 MG TAB PO SCH (20:30)
[2023-03-29 20:32] LABS: Glucose,Whole Blood 456 mg/dL (70-110)
[2023-03-29] MEDS ORDERED: INSULIN DETEMIR (LEVEMIR) 100 UNIT/ML SYR SQ SCH (21:00)
[2023-03-29] MEDS: ACETAMINOPHEN TAB 325 MG TAB PO PRN (22:33)
[2023-03-30] MEDS ORDERED: NITROGLYCERIN OINT 1 INCH/GM PACKET TOPICAL SCH
[2023-03-30 04:41] LABS: Basophils % (A) 0 %; Eosinophils # (A) 0.2 k/uL (0-0.7); Eosinophils % (A) 3 %; Lymphocytes # (A) 1.7 k/uL (1.0-4.8); Lymphocytes % (A) 33 %; MCH 29.1 pg (25.0-35.0); MCHC 32.4 g/dL (31.0-37.0); MCV 89.7 fL (80.0-100.0); Mean Platelet Volume 8.1; Monocytes # (A) 0.3 k/uL (0-1.0); Monocytes % (A) 6 %; Neutrophils # (A) 2.8 k/uL (1.3-7.7); Neutrophils % (A) 56 %; Platelet Count 229 k/uL (150-450); RBC 4.46 m/uL (3.80-5.40); RDW 13.5 % (11.5-15.5); WBC 5.1 k/uL (3.8-10.6)
[2023-03-30 04:46] LABS: Partial Thromboplastin Time 24.5 sec (22.0-30.0); Prothrombin Time 10.4 sec (9.0-12.0)
[2023-03-30] MEDS: ACETAMINOPHEN TAB 325 MG TAB PO PRN (04:54)
[2023-03-30 04:59] LABS: African American GFR (CKD) >90 (>60 ml/min/1.73 sqM); Anion Gap 8 mmol/L; Blood Urea Nitrogen 8 mg/dL (7-17); Calcium 8.7 mg/dL (8.4-10.2); Carbon Dioxide 25 mmol/L (22-30); Chloride 101 mmol/L (98-107); Glucose 357 mg/dL (74-99); Non-African American GFR(CKD) >90 (>60 ml/min/1.73 sqM); Sodium 134 mmol/L (137-145)
[2023-03-30 06:14] LABS: Glucose,Whole Blood 317 mg/dL (70-110)
[2023-03-30] MEDS: INSULIN ASPART (NovoLOG) 100 UNIT/ML VIAL SQ SCH ×5 (06:30→21:20)
[2023-03-30] MEDS ORDERED: HEPARIN SODIUM,PORCINE 10,000 UNIT in SODIUM CHLORIDE 0.9% 1,000 ML IRRIGATION PRN (07:00)
[2023-03-30] MEDS ORDERED: HEPARIN SODIUM,PORCINE (1 ML) 2,500 UNIT in SODIUM CHLORIDE 0.9% 250 ML IRRIGATION PRN (07:00)
[2023-03-30] MEDS ORDERED: ALPRAZolam 0.25 MG TAB PO PRN (08:29)
[2023-03-30] MEDS ORDERED: ALPRAZolam 0.5 MG TAB PO PRN (08:29)
[2023-03-30] MEDS ORDERED: ASPIRIN 325 MG TAB PO STA (08:29)
[2023-03-30] MEDS ORDERED: NITROGLYCERIN SL TABS 0.4 MG TAB SUBLINGUAL PRN (08:29)
[2023-03-30] MEDS ORDERED: ATORVASTATIN 80 MG TAB PO STA (08:29)
[2023-03-30] MEDS ORDERED: ASPIRIN 325 MG TAB PO SCH (09:00)
[2023-03-30] MEDS ORDERED: ASPIRIN 81 MG PO SCH ×2 (09:00)
[2023-03-30] MEDS: METOPROLOL TARTRATE 12.5 MG TAB PO SCH ×2 (09:11→21:21)
[2023-03-30] MEDS ORDERED: HEPARIN SODIUM 1,000 UN/ML (10ML VL) ONE (09:53)
[2023-03-30] MEDS ORDERED: IV FLUID CONTINUATION 1,000 ML IV ONE (10:15)
[2023-03-30] MEDS ORDERED: MIDAZOLAM 2 MG/2 ML VIAL IVP ONE (10:18)
[2023-03-30] MEDS ORDERED: LIDOCAINE 1% INJ 10MG/ML (5 ML VIAL-PF) SQ ONE (10:23)
[2023-03-30] MEDS ORDERED: VERAPAMIL SYRINGE (5 MG/10 ML) INTRAARTER ONE (10:24)
[2023-03-30] MEDS ORDERED: HEPARIN SODIUM 1,000 UN/ML (10ML VL) IV ONE (10:37)
[2023-03-30] MEDS ORDERED: IOPAMIDOL-370 200ML BTL INJ ONE (10:42)
[2023-03-30] MEDS ORDERED: RX INFO: IV CONTRAST WAS GIVEN 1 EACH MISC MISCELLANE PRN (10:49)
--- NOTE | 2023-03-30 10:57 | P.PCN ---
Date of Procedure: 03/30/23 Operative Findings: CARDIAC CATHETERIZATION PERFORMING PHYSICIAN: Garrett Live MD, RPVI PROCEDURE PERFORMED: 1. Selective right and left coronary angiogram 2. Left heart catheterization 3. iFR of the RCA 4. Ultrasound-guided access of the right radial artery INDICATION: Acute coronary syndrome COMPLICATION: None APPROACH: Right radial artery LEVEL OF SEDATION: Moderate with a sedation length of 20 minutes PROCEDURE DESCRIPTION: After obtaining an informed consent, the patient was brought to cardiac director of cardiac cath lab. Local anesthesia was performed using lidocaine subcutaneously. The right radial artery was cannulated using Seldinger technique, the guidewire passed easily, following that we advanced a 5-Montserratian sheath dilator assembly, the wire and dilator were removed and sheath was flushed. Following that, 2 mg of verapamil along with 5000 unit heparin were given. Selective right and left coronary angiogram using a 6-Montserratian JR4 and JL 3.5 catheters. Following that we did left heart catheterization using 6-Montserratian pigtail catheter. The procedure was completed there was no complication. SELECTIVE CORONARY ANGIOGRAM: The right coronary artery: Large caliber vessel and a dominant vessel. The RCA has a focal lesion appears to be intermediate in the range of 60%. iFR came in to be an 0.96 Left main: Large caliber vessel. Its angiographically normal. The left circumflex: Large caliber vessel codominant vessel. The distal CX has intermediate lesion appeared to be in the range of 60% and appeared to be hazy as well. The LCx proximally gives rises into a large OM which appeared to have mild disease only. The left anterior descending artery: The LAD is a large caliber vessel with intermediate disease in the midportion. HEMODYNAMICS: The LVEDP was 20 mmHg was no significant gradient across aortic valve iFR OF THE RCA: Anticoagulation was initiated using heparin with continuous ACT monitoring. Subsequently after zeroing the Doppler wire and equalizing tween the Doppler wire and guiding catheter we did an iFR of the RCA and that came in to be nonischemic and 0.88. The procedure was completed with no complication CONCLUSION: 1. Intermediate the triple-vessel CAD. 2. Elevated left-sided filling pressure POSTPROCEDURE MANAGEMENT: Medical treatment including aggressive cholesterol control and risk factors modification as well as smoking cessation as well as consider dual antiplatelet therapy and follow-up with the echo
[2023-03-30] MEDS ORDERED: SODIUM CHLORIDE 0.9% 1,000 ML IV SCH (11:00)
--- NOTE | 2023-03-30 11:24 | P.PN ---
Subjective Progress Note Date: 03/30/23 Pt reports improvement in her chest pain. Went to [facility] today which showed intermediate triple vessel disease. No PCI done at this time. Gen: awake, alert HEENT: normocephalic, atraumatic, good hearing acuity, moist mucous membranes Resp: good air exchange, breathing comfortably with no accessory muscle use CVS: good distal perfusion x 4, GI: soft, NTTP, ND : no SPT, no CVAT, espinal catheter not present MSK: no pitting edema, no clubbing Neuro: non-focal, moving all extremities Psych: cooperative, euthymic mood Hospital Course: 38-year-old woman with uncontrolled diabetes is noncompliant with medications presented for chest pain. In the emergency room, patient was afebrile, 145/96, heart rate 90, 99% on room air. CBC is unremarkable. Basic metabolic panel shows sodium of 136. Glucose was 432. Liver function tests are unremarkable. Lipase was 104. BNP was 50. Troponin was 0.309. Coags are unremarkable. D- dimer is 0.51. EKG shows normal sinus rhythm, normal axis, poor R-wave pro gression, possible ST elevation in lead 3, ST depressions in V2, V3, V4. Chest x-ray shows clear breath,, normal-sized heart. Case was discussed with the emergency room provider incision was made to admit the patient to hospital for further management of non-ST elevation WI. Assessment: Non-ST elevation WI Uncontrolled diabetes type 2 Plan: Troponins peaked at 1.13. Discussed case with cardiology pre, during, and post [facility]. Intermediate triple vessel disease, recommend aggressive risk factor modification and follow up to ensure no return of chest pain. Echocardiogram = WMA in the inferior wall Aspirin 81 mg daily, atorvastatin 80 mg at bedtime Add plavix 75mg daily Added beta-stacy 12.5mg BID metoprolol Heparin drip, follow PTT for toxicity Patient is full code Objective - Vital Signs Vital signs: Vital Signs Temp 98.0 F 03/30/23 09:00 Pulse 76 03/30/23 09:00 Resp 16 03/30/23 09:00 BP 116/80 03/30/23 09:00 Pulse Ox 100 03/30/23 09:00 FiO2 Intake & Output 03/29/23 03/30/23 03/30/23 18:59 06:59 18:59 Intake Total 916.196 150 Output Total 425 Balance 916.196 -275 Weight 93.894 kg 93.894 kg Intake: IV 150 Intake, IV Titration 136.196 Amount Heparin Sod,Pork in 0.45% 136.196 NaCl 25,000 unit In 0.45 % NaCl 1 250ml.bag @ 10. 65 UNITS/KG/HR 10 mls/hr IV .Q24H [facility] Rx#: [id number] Oral 780 Output: Urine 425 Other: Voiding Method Toilet - Labs CBC & Chem 7: 03/30/23 03:57 03/30/23 03:57 Labs: Abnormal Lab Results - Last 24 Hours (Table) 03/29/23 03/29/23 03/29/23 Range/Units 14:57 14:57 19:02 APTT (22.0-30.0) sec Sodium 136 L (137-145) mmol/L BUN 4 L (7-17) mg/dL Creatinine 0.42 L (0.52-1.04) mg/dL Glucose 432 H (74-99) mg/dL POC Glucose (mg/dL) (70-110) mg/dL Hemoglobin A1c (<=6.0) % Troponin I 0.309 H* 0.797 H* (0.000-0.034) ng/mL 03/29/23 03/29/23 03/29/23 Range/Units 20:27 21:44 21:44 APTT 34.2 H (22.0-30.0) sec Sodium (137-145) mmol/L BUN (7-17) mg/dL Creatinine (0.52-1.04) mg/dL Glucose (74-99) mg/dL POC Glucose (mg/dL) 456 H (70-110) mg/dL Hemoglobin A1c (<=6.0) % Troponin I 0.537 H* (0.000-0.034) ng/mL 03/30/23 03/30/23 03/30/23 Range/Units 01:11 03:57 03:57 APTT (22.0-30.0) sec Sodium 134 L (137-145) mmol/L BUN (7-17) mg/dL Creatinine 0.44 L (0.52-1.04) mg/dL Glucose 357 H (74-99) mg/dL POC Glucose (mg/dL) (70-110) mg/dL Hemoglobin A1c 13.3 H (<=6.0) % Troponin I 1.130 H* (0.000-0.034) ng/mL 03/30/23 Range/Units 06:12 APTT (22.0-30.0) sec Sodium (137-145) mmol/L BUN (7-17) mg/dL Creatinine (0.52-1.04) mg/dL Glucose (74-99) mg/dL POC Glucose (mg/dL) 317 H (70-110) mg/dL Hemoglobin A1c (<=6.0) % Troponin I (0.000-0.034) ng/mL
--- NOTE | 2023-03-30 11:50 | CA ---
Transthoracic Echo Report Name: Flor Mccartney Age: 38 Gender: F : 1985 Exam Date: 03/30/2023 09:25 Exam Location: [facility] Ht (in): 64 Wt (lb): 207 Ordering Physician: Debbi Grove MD Attending/Referring Phys: Property Damage Claims Adjustor Dinora Evans [facility] Procedure CPT: Indications: Chest Pain Cardiac Hx: Technical Quality: Fair Contrast 1: Total Dose (mL): Contrast 2: Total Dose (mL): MEASUREMENTS (Male / Female) Normal Values 2D ECHO LV Diastolic Diameter PLAX 4.6 cm 4.2 - 5.9 / 3.9 - 5.3 cm LV Systolic Diameter PLAX 3.3 cm IVS Diastolic Thickness 0.8 cm 0.6 - 1.0 / 0.6 - 0.9 cm LVPW Diastolic Thickness 1.0 cm 0.6 - 1.0 / 0.6 - 0.9 cm LV Relative Wall Thickness 0.4 Ascending Aorta Diameter 2.9 cm M-MODE Aortic Root Diameter MM 2.8 cm LA Systolic Diameter MM 3.5 cm LA Ao Ratio MM 1.3 AV Cusp Separation MM 1.9 cm DOPPLER AV Peak Velocity 119.6 cm/s AV Peak Gradient 5.7 mmHg AV Mean Velocity 90.3 cm/s AV Mean Gradient 3.5 mmHg AV Velocity Time Integral 23.1 cm LVOT Peak Velocity 91.6 cm/s LVOT Peak Gradient 3.4 mmHg LVOT Velocity Time Integral 18.5 cm Mitral E Point Velocity 52.9 cm/s Mitral A Point Velocity 52.4 cm/s Mitral E to A Ratio 1.0 MV Deceleration Time 195.8 ms LV E' Lateral Velocity 8.9 cm/s Mitral E to LV E' Lateral Ratio 5.9 LV E' Septal Velocity 5.4 cm/s Mitral E to LV E' Septal Ratio 9.9 TR Peak Velocity 150.8 cm/s TR Peak Gradient 9.1 mmHg Right Atrial Pressure 3.0 mmHg Pulmonary Artery Systolic Pressu 12.1 mmHg Right Ventricular Systolic Press 12.1 mmHg FINDINGS Left Ventricle Left ventricular wall thickness normal. Left ventricular cavity size normal. Left ventricular ejection fraction is estimated at 50-55%. Low normal systolic function. Hypokinetic mid-basal inferior wall. Right Ventricle Mild right ventricular dilatation. Right Atrium Normal right atrial size. Left Atrium Normal left atrial size. Mitral Valve Structurally normal mitral valve. Trace mitral regurgitation. Aortic Valve Trileaflet aortic valve. Trace aortic regurgitation. Tricuspid Valve Structurally normal tricuspid valve. Trace to mild tricuspid regurgitation. Pulmonic Valve Structurally normal pulmonic valve. Mild pulmonic regurgitation. Pericardium No pericardial effusion. Aorta Normal size aortic root and proximal ascending aorta. CONCLUSIONS Normal LV systolic function Inferior wall hypokinesis secondary to myocardial infarction Previewed by: Dr. Mj Gill MD (Electronically Signed) Final Date: 30 March 2023 11:49
[2023-03-30 11:57] LABS: Glucose,Whole Blood 198 mg/dL (70-110)
[2023-03-30] MEDS: NITROGLYCERIN-D5W PMX 50 MG in DEXTROSE/WATER 1 250ML.BAG IV SCH ×2 (12:06→21:19)
[2023-03-30] MEDS: CLOPIDOGREL 75 MG TAB PO SCH (12:15)
--- NOTE | 2023-03-30 13:38 | P.CRDCN ---
History of Present Illness Consult date: 03/30/23 Consult reason: chest pain (Elevated troponin, no EKG change) History of present illness: History of present illness: This is a 38-year-old female with past medical history of diabetes, tobacco use and dependence, bipolar disorder. We have been asked to evaluate the patient for elevated troponins. Patient states that she left-sided chest pain that radiated into her left arm and into the left upper back area. This started 2 days ago while she was at rest. Pain is now down to a #1/10 which she states that nitroglycerin seemed to help the pain. Patient is currently an active smoker half a pack per day. EKG EKG with ST elevation in the inferior leads Chest x-ray: No acute process CBC unremarkable. INR 1. Sodium 134, potassium 4, BUN 18 creatinine 0.44. Troponins 0.309 0.797, 0.537, 0.113. Echocardiogram performed 03/29/2023: Normal LV systolic function, inferior wall hypokinesis secondary to myocardial infarction Home cardiac medications: Home medications not listed Review Of Systems: At the time of my evaluation: Constitutional: No fever, no chills. No weakness, fatigue or lethargy. EENT: No headache. No dizziness. Lungs: No shortness of breath, cough, no sputum production. No wheezing. Cardiovascular: Reports mild chest pain, no lower extremity edema. No palpitations. No paroxysmal nocturnal dyspnea. No orthopnea. No lightheadedness or dizziness. No syncopal episodes. Abdominal: No abdominal pain. No nausea, vomiting. No diarrhea. No constipation. No bloody or tarry stools. Genitourinary: No dysuria.. No urinary retention. Musculoskeletal: No myalgias. No muscle weakness, no frequent falls. No back pain. No neck pain. Integumentary: No wounds. No rash. No unusual bruising. Neurologic: No aphasia. No facial droop. No change in mentation. No head injury. No headache. Physical examination: Gen: This is a obese 38-year-old black female. She is resting in bed and appears to be in no acute distress. VS: reviewed blood pressure 116/80, heart rate 76, afebrile, pulse ox 100% on room air. HEENT: Head is atraumatic, normocephalic. Pupils equal, round. Sclerae is anicteric. NECK: Supple. No JVD. . LUNGS: Clear to auscultation. No wheezes or rhonchi. No intercostal retractions. HEART: Regular rate and rhythm. No murmur. ABDOMEN: Soft No tenderness. EXTREMITIES: No pedal edema. No calf tenderness. NEUROLOGICAL: Patient is awake, alert and oriented x3. Assessment: Non-ST elevated myocardial infarction Uncontrolled diabetes mellitus type 2 Plan: Patient scheduled for cardiac catheterization today with Dr. Live Further recommendations to follow based upon clinical course Thank you kindly for this consultation. Nurse practitioner note has been reviewed, I agree with documented findings and plan of care. Patient was seen and examined. Past Medical History Past Medical History: Chest Pain / Angina, Diabetes Mellitus Additional Past Medical History / Comment(s): 5 spontaneous vaginal deliveries. Patient's history is significant for noncompliance and history of positive group B strep. History of Any Multi-Drug Resistant Organisms: None Reported Past Surgical History: No Surgical Hx Reported Past Anesthesia/Blood Transfusion Reactions: No Reported Reaction Smoking Status: Current every day smoker - Past Family History Mother Family Medical History: Diabetes Mellitus Medications and Allergies Home Medications Medication Instructions Recorded Confirmed Type No Known Home Medications 03/29/23 03/29/23 History Allergies Allergy/AdvReac Type Severity Reaction Status Date / Time Fish Containing Products Allergy Nausea & Verified 03/29/23 17:59 [Fish] Vomiting & Diarrhea lactose AdvReac Severe Nausea & Verified 03/29/23 17:59 Vomiting & Diarrhea Pork/Porcine Containing AdvReac Nausea & Verified 03/29/23 17:59 Products Vomiting & [Pork] Diarrhea shellfish derived [Shellfish] AdvReac Anaphylaxis Verified 03/29/23 17:59 Physical Exam Vitals: Vital Signs Temp Pulse Pulse Resp BP BP Pulse Ox 03/30/23 08:23 99 03/30/23 04:00 97.9 F 71 15 112/71 99 03/30/23 00:00 97.9 F 81 15 117/72 100 03/29/23 22:40 98.1 F 77 18 106/70 97 03/29/23 20:25 74 16 95/58 99 03/29/23 14:45 98 F 90 20 145/96 99 Intake and Output 03/29/23 03/30/23 03/30/23 22:59 06:59 14:59 Intake Total 834.167 82.029 Output Total 425 Balance 834.167 82.029 -425 Intake: Intake, IV Titration 54.167 82.029 Amount Heparin Sod,Pork in 0.45% 54.167 82.029 NaCl 25,000 unit In 0.45 % NaCl 1 250ml.bag @ 10. 65 UNITS/KG/HR 10 mls/hr IV .Q24H [facility] Rx#: [id number] Oral 780 0 Output: Urine 425 Other: Voiding Method Toilet Weight 93.894 kg Results 03/30/23 03:57 03/30/23 03:57 Cardiac Enzymes 03/29/23 03/29/23 03/29/23 Range/Units 14:57 14:57 19:02 AST 35 (14-36) U/L Troponin I 0.309 H* 0.797 H* (0.000-0.034) ng/mL 03/29/23 03/30/23 Range/Units 21:44 01:11 AST (14-36) U/L Troponin I 0.537 H* 1.130 H* (0.000-0.034) ng/mL Coagulation 03/29/23 03/29/23 03/30/23 Range/Units 14:57 21:44 03:57 PT 10.4 10.4 (9.0-12.0) sec APTT 24.6 34.2 H 24.5 (22.0-30.0) sec CBC 03/29/23 03/30/23 Range/Units 14:57 03:57 WBC 7.6 5.1 (3.8-10.6) k/uL RBC 4.93 4.46 (3.80-5.40) m/uL Hgb 14.7 13.0 (11.4-16.0) gm/dL Hct 43.9 40.0 (34.0-46.0) % Plt Count 289 229 (150-450) k/uL Comprehensive Metabolic Panel 03/29/23 03/30/23 Range/Units 14:57 03:57 Sodium 136 L 134 L (137-145) mmol/L Potassium 3.6 4.0 (3.5-5.1) mmol/L Chloride 100 101 (98-107) mmol/L Carbon Dioxide 23 25 (22-30) mmol/L BUN 4 L 8 (7-17) mg/dL Creatinine 0.42 L 0.44 L (0.52-1.04) mg/dL Glucose 432 H 357 H (74-99) mg/dL Calcium 9.6 8.7 (8.4-10.2) mg/dL AST 35 (14-36) U/L ALT 21 (4-34) U/L Alkaline Phosphatase 119 (38-126) U/L Total Protein 7.4 (6.3-8.2) g/dL Albumin 4.3 (3.5-5.0) g/dL Current Medications Generic Name Dose Route Start Last Admin Trade Name Freq PRN Reason Stop Dose Admin Acetaminophen 650 mg 03/29/23 18:48 03/30/23 04:54 Acetaminophen Tab 325 Mg Tab PO 650 mg Q6HR PRN Administration Mild Pain or Fever > 100.5 Alprazolam 0.25 mg 03/30/23 08:29 Alprazolam 0.25 Mg Tab PO Q6HR PRN Mild Anxiety Alprazolam 0.5 mg 03/30/23 08:29 Alprazolam 0.5 Mg Tab PO Q6HR PRN Moderate Anxiety Aspirin 81 mg 03/31/23 09:00 Aspirin 81 Mg PO DAILY BENITO Atorvastatin Calcium 80 mg 03/29/23 21:00 03/29/23 20:28 Atorvastatin 80 Mg Tab PO 80 mg HS BENITO Administration Dextrose/Water 25 ml 03/29/23 18:51 Dextrose 50% Syringe 50 Ml IVP PER PROTOCOL PRN Hypoglycemia Protocol Dextrose/Water 50 ml 03/29/23 18:51 Dextrose 50% Syringe 50 Ml IVP PER PROTOCOL PRN Hypoglycemia Protocol Heparin Sodium (Porcine) 0 unit 03/29/23 16:03 03/30/23 04:55 Heparin Sodium 1,000 Un/Ml (10ml Vl) IV 4,000 unit PER PROTOCOL PRN Administration Low PTT Protocol Heparin Sodium/Sodium Chloride 250 mls @ 10 mls/hr 03/29/23 16:15 03/30/23 04:48 25,000 unit/ Sodium Chloride IV 16.65 units/kg/hr .Q24H [facility] 15.633 mls/hr Titration Protocol 10.65 UNITS/KG/HR Nitroglycerin/Dextrose 50 mg/ 250 mls @ 1.5 mls/hr 03/29/23 19:30 IV Solution IV .Q24H [facility] Protocol 5 MCG/MIN Heparin Sodium (Porcine) 10, 1,001 mls @ 999 mls/hr 03/30/23 07:00 000 unit/ Sodium Chloride IRRIGATION 03/30/23 23:00 ONCE PRN INTRA-OP Heparin Sodium (Porcine) 2,500 250.5 mls @ 250 mls/hr 03/30/23 07:00 unit/ Sodium Chloride IRRIGATION 03/30/23 23:00 ONCE PRN INTRA-OP Insulin Aspart 9 unit 03/30/23 07:30 03/30/23 06:30 Insulin Aspart (Novolog) 100 Unit/Ml Vial 0.1 unit/kg (9 unit) 9 unit SQ Administration AC-TID [facility] Insulin Detemir 10 unit 03/29/23 21:00 03/29/23 20:28 Insulin Detemir (Levemir) 100 Unit/Ml Syr SQ 10 unit HS [facility] Administration Metoprolol Tartrate 12.5 mg 03/29/23 21:00 03/30/23 09:11 Metoprolol Tartrate 12.5 Mg Tab PO 12.5 mg BID BENITO Administration Naloxone HCl 0.2 mg 03/29/23 18:48 Naloxone 0.4 Mg/Ml 1 Ml Vial IVP Q2M PRN Opioid Reversal Nitroglycerin 0.4 mg 03/29/23 18:49 Nitroglycerin Sl Tabs 0.4 Mg Tab SUBLINGUAL Q5M PRN Chest Pain Intake and Output 03/29/23 03/30/23 03/30/23 22:59 06:59 14:59 Intake Total 834.167 82.029 Output Total 425 Balance 834.167 82.029 -425 Intake: Intake, IV Titration 54.167 82.029 Amount Heparin Sod,Pork in 0.45% 54.167 82.029 NaCl 25,000 unit In 0.45 % NaCl 1 250ml.bag @ 10. 65 UNITS/KG/HR 10 mls/hr IV .Q24H [facility] Rx#: [id number] Oral 780 0 Output: Urine 425 Other: Voiding Method Toilet Weight 93.894 kg 03/30/23 03:57 03/30/23 03:57
[2023-03-30 14:18] LABS: Urine Alcohol Negative (Negative); Urine Barbiturate Negative (Negative); Urine Cocaine Negative (Negative); Urine Methadone Negative (Negative); Urine Opiates Negative (Negative); Urine Phencyclidine Negative (Negative)
[2023-03-30 14:26] LABS: Chol/HDL Ratio 6.65 Ratio; LDL Cholesterol,Calculated 91.2 mg/dL (0.0-131.0)
[2023-03-30 14:46] VITALS: BMI 35.5
[2023-03-30 17:02] LABS: Glucose,Whole Blood 351 mg/dL (70-110)
[2023-03-30] MEDS: HEPARIN SOD,PORK IN 0.45% NACL 25,000 UNIT in 0.45% NACL 1 250ML.BAG IV SCH (17:35)
[2023-03-30 19:33] LABS: Glucose,Whole Blood 328 mg/dL (70-110)
[2023-03-30] MEDS: INSULIN DETEMIR (LEVEMIR) 100 UNIT/ML SYR SQ SCH (21:20)
[2023-03-30] MEDS: ATORVASTATIN 80 MG TAB PO SCH ×2 (21:20→21:21)
[2023-03-31 05:45] LABS: Glucose,Whole Blood 269 mg/dL (70-110)
[2023-03-31] MEDS: INSULIN ASPART (NovoLOG) 100 UNIT/ML VIAL SQ SCH ×5 (06:13→16:52)
[2023-03-31] MEDS: ASPIRIN 81 MG PO SCH (08:30)
[2023-03-31] MEDS: METOPROLOL TARTRATE 12.5 MG TAB PO SCH ×2 (08:30→20:42)
[2023-03-31] MEDS: CLOPIDOGREL 75 MG TAB PO SCH (08:30)
[2023-03-31 11:32] LABS: Glucose,Whole Blood 280 mg/dL (70-110)
--- NOTE | 2023-03-31 11:51 | P.PN ---
Subjective Progress Note Date: 03/31/23 History of present illness: This is a 38-year-old female with past medical history of diabetes, tobacco use and dependence, bipolar disorder. We have been asked to evaluate the patient for elevated troponins. Patient states that she left-sided chest pain that radiated into her left arm and into the left upper back area. This started 2 days ago while she was at rest. Pain is now down to a #1/10 which she states that nitroglycerin seemed to help the pain. Patient is currently an active smoker half a pack per day. EKG EKG with ST elevation in the inferior leads Chest x-ray: No acute process CBC unremarkable. INR 1. Sodium 134, potassium 4, BUN 18 creatinine 0.44. Troponins 0.309 0.797, 0.537, 0.113. Echocardiogram performed 03/29/2023: Normal LV systolic function, inferior wall hypokinesis secondary to myocardial infarction Home cardiac medications: Home medications not listed 03/31 Yesterday, patient underwent cardiac catheterization that revealed intermediate triple-vessel coronary artery disease, elevated left-sided filling pressure with plan for aggressive versus factor modification, dual antiplatelet therapy, smoking cessation. Heart rate is been in the 70s and 80s, blood pressure 102/69, pulse ox 94% on room air. Patient denies having any chest pain. She is requesting to go home today but is agreeable to stay until 8 AM tomorrow morning. Arrangements will be made with her attending physician to make this happen for her. Patient's new cardiac medications have been sent to her pharmacy in anticipation of discharge tomorrow. Physical examination: Gen: This is a obese 38-year-old black female. She is resting in bed and appears to be in no acute distress. VS: reviewed HEENT: Head is atraumatic, normocephalic. Pupils equal, round. Sclerae is anicteric. NECK: Supple. No JVD. . LUNGS: Clear to auscultation. No wheezes or rhonchi. No intercostal retractions. HEART: Regular rate and rhythm. No murmur. ABDOMEN: Soft No tenderness. EXTREMITIES: No pedal edema. No calf tenderness. NEUROLOGICAL: Patient is awake, alert and oriented x3. Assessment: Non-ST elevated myocardial infarction status post cardiac catheterization finding intermediate triple-vessel coronary artery disease Uncontrolled diabetes mellitus type 2 Plan: Continue current cardiac medications, prescriptions sent to her pharmacy Monitor patient overnight The patient has no events overnight, patient will be cleared for discharge home tomorrow. Patient will follow up with Dr. Live in the office in about one week. Nurse practitioner note has been reviewed, I agree with documented findings and plan of care. Patient was seen and examined. Objective - Vital Signs Vital signs: Vital Signs Temp 98.7 F 03/31/23 08:00 Pulse 80 03/31/23 08:00 Resp 16 03/31/23 08:00 BP 102/69 03/31/23 08:00 Pulse Ox 94 L 03/31/23 08:00 FiO2 Intake & Output 03/30/23 03/31/23 03/31/23 18:59 06:59 18:59 Intake Total 863.804 220 Output Total 425 Balance 438.804 220 Weight 93.894 kg Intake: IV 150 Intake, IV Titration 113.804 Amount Heparin Sod,Pork in 0.45% 113.804 NaCl 25,000 unit In 0.45 % NaCl 1 250ml.bag @ 10. 65 UNITS/KG/HR 10 mls/hr IV .Q24H [facility] Rx#: [id number] Oral 600 220 Output: Urine 425 Other: Voiding Method Toilet # Voids 1 1 - Labs CBC & Chem 7: 03/30/23 03:57 03/30/23 03:57 Labs: Abnormal Lab Results - Last 24 Hours (Table) 03/30/23 03/30/23 03/30/23 Range/Units 03:57 11:32 16:53 APTT (22.0-30.0) sec Sodium 134 L (137-145) mmol/L Creatinine 0.44 L (0.52-1.04) mg/dL Glucose 357 H (74-99) mg/dL POC Glucose (mg/dL) 198 H 351 H (70-110) mg/dL Triglycerides 453.00 H (0.00-149.00) mg/dL Cholesterol 214.00 H (0.00-200.00) mg/dL VLDL Cholesterol, Calc 90.60 H (5.00-40.00) mg/dL HDL Cholesterol 32.20 L (40.00-60.00) mg/dL 08/14/23 08/14/23 08/15/23 Range/Units 19:31 23:39 05:43 APTT 50.9 H (22.0-30.0) sec Sodium (137-145) mmol/L Creatinine (0.52-1.04) mg/dL Glucose (74-99) mg/dL POC Glucose (mg/dL) 328 H 269 H (70-110) mg/dL Triglycerides (0.00-149.00) mg/dL Cholesterol (0.00-200.00) mg/dL VLDL Cholesterol, Calc (5.00-40.00) mg/dL HDL Cholesterol (40.00-60.00) mg/dL 03/31/23 Range/Units 06:05 APTT 62.1 H (22.0-30.0) sec Sodium (137-145) mmol/L Creatinine (0.52-1.04) mg/dL Glucose (74-99) mg/dL POC Glucose (mg/dL) (70-110) mg/dL Triglycerides (0.00-149.00) mg/dL Cholesterol (0.00-200.00) mg/dL VLDL Cholesterol, Calc (5.00-40.00) mg/dL HDL Cholesterol (40.00-60.00) mg/dL
[2023-03-31 16:37] LABS: Glucose,Whole Blood 249 mg/dL (70-110)
[2023-03-31] MEDS: ACETAMINOPHEN TAB 325 MG TAB PO PRN (16:51)
--- NOTE | 2023-03-31 17:19 | P.PN ---
Subjective Progress Note Date: 03/31/23 Pt reports improvement in her chest pain. Gen: awake, alert HEENT: normocephalic, atraumatic, good hearing acuity, moist mucous membranes Resp: good air exchange, breathing comfortably with no accessory muscle use CVS: good distal perfusion x 4, GI: soft, NTTP, ND : no SPT, no CVAT, espinal catheter not present MSK: no pitting edema, no clubbing Neuro: non-focal, moving all extremities Psych: cooperative, euthymic mood Hospital Course: 38-year-old woman with uncontrolled diabetes is noncompliant with medications presented for chest pain. In the emergency room, patient was afebrile, 145/96, heart rate 90, 99% on room air. CBC is unremarkable. Basic metabolic panel shows sodium of 136. Glucose was 432. Liver function tests are unremarkable. Lipase was 104. BNP was 50. Troponin was 0.309. Coags are unremarkable. D- dimer is 0.51. EKG shows normal sinus rhythm, normal axis, poor R-wave progression, possible ST elevation in lead 3, ST depressions in V2, V3, V4. Chest x-ray shows clear breath,, normal-sized heart. Case was discussed with the emergency room provider incision was made to admit the patient to hospital for further management of non-ST elevation VT. Assessment: Non-ST elevation VT Uncontrolled diabetes type 2 Plan: Troponins peaked at 1.13. Discussed case with cardiology pre, during, and post [facility]. Intermediate triple vessel disease, recommend aggressive risk factor modification and follow up to ensure no return of chest pain. Echocardiogram = WMA in the inferior wall Aspirin 81 mg daily, atorvastatin 80 mg at bedtime Add plavix 75mg daily Added beta-stacy 12.5mg BID metoprolol Heparin drip, follow PTT for toxicity Patient is full code Objective - Vital Signs Vital signs: Vital Signs Temp 98.3 F 03/31/23 16:00 Pulse 80 03/31/23 16:00 Resp 16 03/31/23 16:00 BP 105/67 03/31/23 16:00 Pulse Ox 99 03/31/23 16:00 FiO2 Intake & Output 03/30/23 03/31/23 03/31/23 18:59 06:59 18:59 Intake Total 863.804 580 Output Total 425 Balance 438.804 580 Weight 93.894 kg Intake: IV 150 Intake, IV Titration 113.804 250 Amount Heparin Sod,Pork in 0.45% 113.804 250 NaCl 25,000 unit In 0.45 % NaCl 1 250ml.bag @ 10. 65 UNITS/KG/HR 10 mls/hr IV .Q24H [facility] Rx#: [id number] Oral 600 330 Output: Urine 425 Other: Voiding Method Toilet Toilet # Voids 1 1 - Labs CBC & Chem 7: 03/30/23 03:57 03/30/23 03:57 Labs: Abnormal Lab Results - Last 24 Hours (Table) 03/30/23 03/30/23 03/31/23 Range/Units 19:31 23:39 05:43 APTT 50.9 H (22.0-30.0) sec POC Glucose (mg/dL) 328 H 269 H (70-110) mg/dL 03/31/23 03/31/23 03/31/23 Range/Units 06:05 11:30 16:34 APTT 62.1 H (22.0-30.0) sec POC Glucose (mg/dL) 280 H 249 H (70-110) mg/dL
[2023-03-31 19:49] VITALS: TEMP 97.8
[2023-03-31 20:07] LABS: Glucose,Whole Blood 274 mg/dL (70-110)
[2023-03-31] MEDS: INSULIN DETEMIR (LEVEMIR) 100 UNIT/ML SYR SQ SCH (20:42)
[2023-03-31] MEDS: ATORVASTATIN 80 MG TAB PO SCH (20:43)
[2023-04-01 06:14] LABS: Glucose,Whole Blood 309 mg/dL (70-110)
[2023-04-01] MEDS: INSULIN ASPART (NovoLOG) 100 UNIT/ML VIAL SQ SCH ×2 (06:42)
[2023-04-01] MEDS: ASPIRIN 81 MG PO SCH (07:59)
[2023-04-01] MEDS: METOPROLOL TARTRATE 12.5 MG TAB PO SCH (07:59)
[2023-04-01] MEDS: CLOPIDOGREL 75 MG TAB PO SCH (07:59)
[2023-04-01 08:04] VITALS: BP 119/57; PULSE 84; RESP 16
--- NOTE | 2023-04-01 10:16 | P.DS ---
Providers Date of admission: 03/29/23 18:49 Expected date of discharge: 04/01/23 Attending physician: Debbi Grove MD Consults: 03/29/23 18:49 Consult Physician Routine Consulting Provider: [facility] Consult Reason/Comments: Chest Pain Do you want consulting provider notified?: Yes Consult Physician Urgent Consulting Provider: Mj Gill Consult Reason/Comments: Chest pain, elevated troponin, no EKG change Do you want consulting provider notified?: Yes Primary care physician: Stated None Hospital Course: Assessment: Non-ST elevation CA Uncontrolled diabetes type 2 Hospital Course: 38-year-old woman with uncontrolled diabetes is noncompliant with medications presented for chest pain. In the emergency room, patient was afebrile, 145/96, heart rate 90, 99% on room air. CBC is unremarkable. Basic metabolic panel shows sodium of 136. Glucose was 432. Liver function tests are unremarkable. Lipase was 104. BNP was 50. Troponin was 0.309. Coags are unremarkable. D- dimer is 0.51. EKG shows normal sinus rhythm, normal axis, poor R-wave progression, possible ST elevation in lead 3, ST depressions in V2, V3, V4. Chest x-ray shows clear breath,, normal-sized heart. Case was discussed with the emergency room provider incision was made to admit the patient to hospital for further management of non-ST elevation CA. Troponins peaked at 1.13. Discussed case with cardiology pre, during, and post [facility]. Pt had Intermediate triple vessel disease, and they recommend aggressive risk factor modification and follow up to ensure no return of chest pain. Echocardiogram = WMA in the inferior wall. Pt discharged on ASA, Plavix, betablocker, statin, and new scripts for long and short acting insulin. I spent 34 minutes coordinating this discharge on 04/01 Gen: awake, alert HEENT: normocephalic, atraumatic, good hearing acuity, moist mucous membranes Resp: good air exchange, breathing comfortably with no accessory muscle use CVS: good distal perfusion x 4, GI: soft, NTTP, ND : no SPT, no CVAT, espinal catheter not present MSK: no pitting edema, no clubbing Neuro: non-focal, moving all extremities Psych: cooperative, euthymic mood Patient Condition at Discharge: Good Plan - Discharge Summary Discharge Rx Participant: No New Discharge Prescriptions: New Aspirin 81 mg PO DAILY tab Metoprolol Tartrate [Lopressor] 12.5 mg PO BID #180 tab Insulin Detemir (Levemir) [Levemir] 25 unit SQ HS #1 each Syringe and Needle,Insulin,1Ml [Insulin Syringe 30G 5/16" 1ml] 1 each ACHS #120 each Atorvastatin [Lipitor] 80 mg PO HS #90 tab Nitroglycerin Sl Tabs [Nitrostat] 0.4 mg SUBLINGUAL Q5M PRN #25 tab PRN Reason: Chest Pain Clopidogrel [Plavix] 75 mg PO DAILY #90 tab lisinopriL [Zestril] 2.5 mg PO DAILY #90 tab INSULIN ASPART (NovoLOG) [NovoLOG (formulary)] 9 unit SQ AC-TID #1 each Discharge Medication List Aspirin 81 mg PO DAILY tab 03/31/23 [Rx] Atorvastatin [Lipitor] 80 mg PO HS #90 tab 03/31/23 [Rx] Clopidogrel [Plavix] 75 mg PO DAILY #90 tab 03/31/23 [Rx] Metoprolol Tartrate [Lopressor] 12.5 mg PO BID #180 tab 03/31/23 [Rx] Nitroglycerin Sl Tabs [Nitrostat] 0.4 mg SUBLINGUAL Q5M PRN #25 tab 03/31/23 [Rx] lisinopriL [Zestril] 2.5 mg PO DAILY #90 tab 03/31/23 [Rx] INSULIN ASPART (NovoLOG) [NovoLOG (formulary)] 9 unit SQ AC-TID #1 each 04/01/23 [Rx] Insulin Detemir (Levemir) [Levemir] 25 unit SQ HS #1 each 04/01/23 [Rx] Syringe and Needle,Insulin,1Ml [Insulin Syringe 30G 5/16" 1ml] 1 each ACHS #120 each 04/01/23 [Rx] Follow up Appointment(s)/Referral(s): Garrett Live MD [STAFF PHYSICIAN] - 1 Week (please call to schedule appointment. ) None,Stated [Primary Care Provider] - 1-2 days (please call to schedule appt with your primary care provider.) Patient Instructions/Handouts: *Surgery [facility] - After Heart Catheterization - Gear [employer] Set Up Operator Instructions, Type 2 Diabetes in Adults: New Diagnosis (DC), How to Check your Blood Sugar (DC) Activity/Diet/Wound Care/Special Instructions: [facility] for free glucometer and low cost testing supplies. Address: [facility] [address], [place] [address] Discharge/Stand Alone Forms: Personal Adult Education Instructor, Area PCPs Discharge Disposition: HOME SELF-CARE
== END 2023-04-01 08:02 | disposition home or self-care (01) | DRG 282 ==
LOC: EC 14:39 → 3SCARD 18:49
PROVIDERS: ADMIT Internal Medicine; ATTEND Internal Medicine
PROC: 4A023N7 Measurement of Cardiac Sampling and Pressure, Left Heart, Percutaneous Approach (ICD-10-PCS; principal; 2023-03-30 13:50)
PROC: 4A033BC Measurement of Arterial Pressure, Coronary, Percutaneous Approach (ICD-10-PCS; 2023-03-30 13:50)
PROC: B2111ZZ Fluoroscopy of Multiple Coronary Arteries using Low Osmolar Contrast (ICD-10-PCS; 2023-03-30 13:50)
DX: I21.4 Non-ST elevation (NSTEMI) myocardial infarction (principal); F17.210 Nicotine dependence, cigarettes, uncomplicated; Z71.6 Tobacco abuse counseling; E11.65 Type 2 diabetes mellitus with hyperglycemia; E66.9 Obesity, unspecified; Z83.3 Family history of diabetes mellitus; Z79.899 Other long term (current) drug therapy; Z79.82 Long term (current) use of aspirin; F90.9 Attention-deficit hyperactivity disorder, unspecified type; F41.9 Anxiety disorder, unspecified; F31.9 Bipolar disorder, unspecified; I25.10 Atherosclerotic heart disease of native coronary artery without angina pectoris; Z91.148 Patient's other noncompliance with medication regimen for other reason; Z91.199 Patient's noncompliance with other medical treatment and regimen due to unspecified reason; Z91.013 Allergy to seafood; Z68.35 Body mass index [BMI] 35.0-35.9, adult
CPT/HCPCS: 36415; 71046; 76937; 80048; 80053; 80061; 80306; 83036; 83690; 83721; 83735; 83880; 84484; 85025; 85379; 85610; 85730; 93005; 93306; 93458; 93799; 94760; 96365; 96366; 99285

== ENCOUNTER 2023-10-26 11:06 | Inpatient (IN) | payer MEDICARE, OTHER ==
[2023-10-26 11:43] LABS: Basophils % (A) 0 %; Eosinophils # (A) 0.2 k/uL (0-0.7); Eosinophils % (A) 2 %; HCT 44.5 % (34.0-46.0); HGB 14.7 gm/dL (11.4-16.0); Lymphocytes # (A) 1.1 k/uL (1.0-4.8); Lymphocytes % (A) 13 %; MCH 28.6 pg (25.0-35.0); MCHC 33.1 g/dL (31.0-37.0); MCV 86.4 fL (80.0-100.0); Mean Platelet Volume 8.3; Monocytes # (A) 0.2 k/uL (0-1.0); Monocytes % (A) 3 %; Neutrophils # (A) 6.8 k/uL (1.3-7.7); Neutrophils % (A) 80 %; Platelet Count 261 k/uL (150-450); RBC 5.15 m/uL (3.80-5.40); WBC 8.5 k/uL (3.8-10.6)
[2023-10-26 12:19] LABS: Partial Thromboplastin Time 24.3 sec (22.0-30.0); Prothrombin Time 10.7 sec (10.0-12.5)
[2023-10-26 12:22] LABS: ALT 16 U/L (4-34); AST 30 U/L (14-36); African American GFR (CKD) >90 (>60 ml/min/1.73 sqM); Albumin 4.4 g/dL (3.5-5.0); Alkaline Phosphatase 128 U/L (38-126); Anion Gap 11 mmol/L; Blood Urea Nitrogen 9 mg/dL (7-17); Calcium 9.2 mg/dL (8.4-10.2); Carbon Dioxide 23 mmol/L (22-30); Chloride 103 mmol/L (98-107); Glucose 341 mg/dL (74-99); Magnesium 1.7 mg/dL (1.6-2.3); Non-African American GFR(CKD) >90 (>60 ml/min/1.73 sqM); Sodium 137 mmol/L (137-145); Total Bilirubin 0.8 mg/dL (0.2-1.3); Total Protein 7.5 g/dL (6.3-8.2)
[2023-10-26 12:24] LABS: Potassium 4.3 mmol/L (3.5-5.1)
--- NOTE | 2023-10-26 12:25 | ED ---
Chest Pain HPI - General Source: patient, RN notes reviewed Mode of arrival: ambulatory Limitations: no limitations - History of Present Illness MD Complaint: chest pain <Mirta Wilson - Last Filed: 10/26/23 13:03> <Rj Colvin - Last Filed: 10/26/23 13:28> - General Chief Complaint: Chest Pain Stated Complaint: Chest Pain, hx of Heart Attack, took 3 Nitro Pills Time Seen by Provider: 10/26/23 11:38 - History of Present Illness Initial Comments: This is a 38-year-old female who presents to the emergency department for chest pain. States that yesterday she had some pain in the left side of her neck, and this morning she has had intermittent pain in the left side of her chest. States that this is occurring intermittently, but is particularly worse with movement. Denies any shortness of breath. She did take 3 nitroglycerin prior to arrival, which she felt was effective. Reports a history of a heart attack last year, and is still on blood thinners. States that she did not require a stent, as the stenosis was not severe enough. She is concerned because the pain feels similar to that event. (Mirta Wilson) - Related Data Home Medications Medication Instructions Recorded Confirmed Fluconazole [Diflucan] 150 mg PO DAILY 10/26/23 10/26/23 Ofloxacin 0.3% Ophth Soln [Ocuflox 2 drops BOTH EYES QID 10/26/23 10/26/23 Ophth Soln] Allergies Allergy/AdvReac Type Severity Reaction Status Date / Time Fish Containing Products Allergy Nausea & Verified 10/26/23 13:17 [Fish] Vomiting & Diarrhea soy Allergy Nausea & Verified 10/26/23 13:17 Vomiting lactose AdvReac Severe Nausea & Verified 10/26/23 13:17 Vomiting & Diarrhea Pork/Porcine Containing AdvReac Nausea & Verified 10/26/23 13:17 Products Vomiting & [Pork] Diarrhea shellfish derived [Shellfish] AdvReac Anaphylaxis Verified 10/26/23 13:17 Review of Systems ROS Other: All systems not noted in ROS Statement are negative. <Mirta Wilson - Last Filed: 10/26/23 13:03> ROS Other: All systems not noted in ROS Statement are negative. <Rj Colvin - Last Filed: 10/26/23 13:28> ROS Statement: Those systems with pertinent positive or pertinent negative responses have been documented in the HPI. Past Medical History Past Medical History: Chest Pain / Angina, Diabetes Mellitus Additional Past Medical History / Comment(s): 5 spontaneous vaginal deliveries. Patient's history is significant for noncompliance and history of positive group B strep. History of Any Multi-Drug Resistant Organisms: None Reported Past Surgical History: No Surgical Hx Reported Past Anesthesia/Blood Transfusion Reactions: No Reported Reaction Past Psychological History: ADD/ADHD, Anxiety, Bipolar Smoking Status: Former smoker - Past Family History Mother Family Medical History: Diabetes Mellitus <Mirta Wilson - Last Filed: 10/26/23 13:03> General Exam Limitations: no limitations General appearance: alert, in no apparent distress Head exam: Present: atraumatic, normocephalic, normal inspection Respiratory exam: Present: normal lung sounds bilaterally. Absent: respiratory distress, wheezes, rales, rhonchi, stridor Cardiovascular Exam: Present: regular rate, normal rhythm, normal heart sounds. Absent: systolic murmur, diastolic murmur, rubs, gallop, clicks Neurological exam: Present: alert, oriented X3, CN II-XII intact Psychiatric exam: Present: normal affect, normal mood Skin exam: Present: warm, dry, intact, normal color. Absent: rash <Mirta Wilson - Last Filed: 10/26/23 13:03> Course Vital Signs 10/26/23 11:19 Temperature 98.5 F Pulse Rate 117 H Respiratory 20 Rate Blood Pressure 129/91 O2 Sat by Pulse 99 Oximetry Chest Pain MDM <Mirta Wilson - Last Filed: 10/26/23 13:03> <Rj Colvin - Last Filed: 10/26/23 13:28> - MDM This is a 38 year old female who presents to the emergency department for chest pain. Was pt. sent in by a medical professional or institution? @ -No Did you speak to anyone other than the patient for history? @ -No Did you review nursing and triage notes? @ -Yes, and I agree, it is accurate with regards to the patient's symptoms. Were old charts reviewed? @ -No Differential Diagnosis? @ -Differential Chest Pain: Stable Angina, Unstable Angina, STEMI, NSTEMI Aortic Dissection, Pneumothorax, Musculoskeletal, Esophageal Spasm GERD, Cholecystitis, Pancreatitis, Zoster, this is not meant to be an all-inclusive list. EKG interpreted by me (3pts min.)? @ -EKG interpreted by me demonstrating the following: Sinus tachycardia. Ventricular rate 104 bpm, ID interval 158 ms, QRS duration 98 ms, QTc 407 ms. X-rays interpreted by me (1pt min.)? @ -[none] CT interpreted by me (1pt min.)? @ -[none] U/S interpreted by me (1pt. min.)? @ -[none] What testing was considered but not performed? (CT, X-rays, U/S, labs)? Why? @ [CT, X-rays, U/S, labs? Why?] What meds were considered but not given? Why? @ -[none] Did you discuss the management of the patient with other professionals? @ -No Did you reconcile home meds? @ -No Was smoking cessation discussed for >3mins.? @ -No Was critical care preformed (if so, how long)? @ -No Were there social determinants of health that impacted care today? How? (Homelessness, low income, unemployed, alcoholism, drug addiction, transportation, low edu. Level, literacy, decrease access to med. care, longterm, rehab)? @ -No Was there de-escalation of care discussed even if they declined? (Discuss DNR or withdrawal of care, Hospice)? @ -No What co-morbidities impacted this encounter? (DM, HTN, Smoking, COPD, CAD, Cancer, CVA, Hep., AIDS, mental health diagnosis, sleep apnea, morbid obesity)? @ -[DM, HTN, Smoking, COPD, CAD, Cancer, CVA, Hep., AIDS, mental health diagnosis, sleep apnea, morbid obesity?] Was patient admitted / discharged? @ -[hospital course] Undiagnosed new problem with uncertain prognosis? @ -None Drug Therapy requiring intensive monitoring for toxicity (Heparin, Nitro, Insulin, Cardizem)? @ -None Were any procedures done? @ -None Diagnosis/symptom? @ -[default] Acute, or Chronic, or Acute on Chronic? @ -[default] Uncomplicated (without systemic symptoms) or Complicated (systemic symptoms)? @ -[default] Side effects of treatment? @ -[none] Exacerbation, Progression, or Severe Exacerbation] @ -Not applicable Poses a threat to life or bodily function? @ -[no] (Mirta Wilson) Patient presents emergency department complaining of chest pain since 6 AM this morning. Was originally seen and worked up by midlevel provider. I was made aware of the patient at approximately 1255 on admission when shown the EKG. No one previously showed me the EKG. EKG as interpreted myself by myself was concerning for ST segment elevations in lead aVF and III with reciprocal depressions. The machine did not registered as a STEMI, however obvious concern for this considering the patient's clinical state as well as findings on EKG.. I instructed the midlevel provider to obtain a immediate repeat EKG at this time. Patient was already being admitted for NSTEMI on heparin, however there was concern for STEMI at this time. I evaluated the patient and they obtained a repeat EKG. Repeat EKG still shows ST segment elevations in the inferior leads with reciprocal depressions. At this time, approximately an hour and a half after the initial EKG was obtained I activated a STEMI pager. Spoke with Dr. Olivares who was in agreement with findings on EKG and concern fro STEMI Patient will be dispositioned to the Sales Enablement Lead. Patient was already on heparin. I ensured patient was administered 324 mg of aspirin. Review of the patient's chart revealed that the patient had a cardiac cath in March 2023 with triple-vessel disease. Does not appear she had any stents placed at that time. Patient is currently resting comfortably with minimal pain 1 out of 10. Diagnosis/symptom? @ -STEMI Acute, or Chronic, or Acute on Chronic? @ -Acute Uncomplicated (without systemic symptoms) or Complicated (systemic symptoms)? @ -Complicated Side effects of treatment? @ -None Exacerbation, Progression, or Severe Exacerbation] @ -No Poses a threat to life or bodily function? @ -Yes (Rj Colvin) Disposition Time of Disposition: 13:03 <Mirta Wilson - Last Filed: 10/26/23 13:03> <Rj Colvin - Last Filed: 10/26/23 13:28> Clinical Impression: ST elevation myocardial infarction (STEMI) Disposition: ADMITTED IP TO THIS HOSP Condition: Serious
[2023-10-26] MEDS: NITROGLYCERIN OINT 1 INCH/GM PACKET TOPICAL STA (12:39)
--- NOTE | 2023-10-26 12:41 | XR ---
EXAMINATION TYPE: XR chest 2V DATE OF EXAM: 10/26/2023 COMPARISON: 03/29/2023 HISTORY: 38-year-old female with chest pain TECHNIQUE: AP and lateral views FINDINGS: The cardiomediastinal silhouette, aorta, and pulmonary vasculature are within normal limits. Hazy low er lung densities relating to overlying soft tissue. No consolidation or pleural effusion seen. IMPRESSION: No acute cardiopulmonary process.
[2023-10-26] MEDS ORDERED: HEPARIN SODIUM 1,000 UN/ML (10ML VL) IV PRN (12:52)
[2023-10-26] MEDS ORDERED: MORPHINE SULFATE 4 MG/ML SYRINGE IV PRN (13:03)
[2023-10-26] MEDS ORDERED: NALOXONE 0.4 MG/ML 1 ML VIAL IV PRN (13:03)
[2023-10-26] MEDS ORDERED: HYDROcodone/APAP 5-325MG 1 EACH TAB PO PRN (13:03)
[2023-10-26] MEDS ORDERED: ONDANSETRON 4 MG/2 ML VIAL IVP PRN (13:03)
[2023-10-26] MEDS ORDERED: ACETAMINOPHEN TAB 325 MG TAB PO PRN (13:03)
[2023-10-26] MEDS ORDERED: NITROGLYCERIN SL TABS 0.4 MG TAB SUBLINGUAL PRN ×2 (13:11→13:20)
[2023-10-26] MEDS: ASPIRIN 81 MG PO STA (13:18)
[2023-10-26] MEDS: HEPARIN SODIUM 1,000 UN/ML (10ML VL) IV ONE (13:19)
[2023-10-26] MEDS ORDERED: ALPRAZolam 0.25 MG TAB PO PRN (13:20)
[2023-10-26] MEDS: ATORVASTATIN 80 MG TAB PO STA ×2 (13:20→13:25)
[2023-10-26] MEDS ORDERED: ALPRAZolam 0.5 MG TAB PO PRN (13:20)
[2023-10-26] MEDS: HEPARIN SOD,PORK IN 0.45% NACL 25,000 UNIT in 0.45% NACL 1 250ML.BAG IV SCH (13:22)
[2023-10-26] MEDS: ASPIRIN 325 MG TAB PO STA (13:26)
--- NOTE | 2023-10-26 13:38 | P.CRDCN ---
History of Present Illness Consult date: 10/26/23 Reason for Consult (text): STEMI History of present illness: History of present illness: This is a 38-year-old female with past medical history of diabetes, tobacco use and dependence, bipolar disorder. Patient has history of inferior myocardial infarction in March 2023 status post cardiac catheterization finding intermediate triple-vessel coronary artery disease with Dr. Live. Patient apparently took her medications for about 1 to 2 weeks and has not had any follow-up since then. Patient presented to the emergency center due to chest pain that started at 6 AM along with radiation to her neck and arm. Patient has been started on heparin drip. Due to non-ST elevated PR, patient is being moved to the Midlevel Provider for urgent cardiac catheterization with Dr. Live today. EKG with ST elevation in the inferior leads Chest x-ray: No acute process CBC unremarkable. INR 1. D-dimer 0.29. Her lites and renal function are normal. Magnesium 1.7, alkaline phosphatase 128 otherwise liver function test are normal. Troponin 0.099. hCG not detected. Echocardiogram performed 03/29/2023: Normal LV systolic function, inferior wall hypokinesis secondary to myocardial infarction Home cardiac medications: None Cardiac catheterization performed on 03/30/[address] Live revealed intermediate triple-vessel coronary artery disease, elevated left-sided filling pressure. Medical management was recommended. Review Of Systems: At the time of my evaluation: Constitutional: No fever, no chills. No weakness, fatigue or lethargy. EENT: No headache. No dizziness. Lungs: No shortness of breath, cough, no sputum production. No wheezing. Cardiovascular: Reports chest pain, no lower extremity edema. No palpitations. No paroxysmal nocturnal dyspnea. No orthopnea. No lightheadedness or dizziness. No syncopal episodes. Abdominal: No abdominal pain. No nausea, vomiting. Musculoskeletal: No myalgias. No muscle weakness, no frequent falls. Integumentary: No wounds. No rash. Neurologic: No aphasia. No facial droop. No change in mentation. No head injury. No headache. Physical examination: Gen: This is a obese 38-year-old black female in no acute distress. VS: reviewed HEENT: Head is atraumatic, normocephalic. Pupils equal, round. Sclerae is anicteric. NECK: Supple. No JVD. LUNGS: Clear to auscultation. No wheezes or rhonchi. No intercostal retractions. HEART: Regular rate and rhythm. No murmur. ABDOMEN: Soft No tenderness. EXTREMITIES: No pedal edema. No calf tenderness. NEUROLOGICAL: Patient is awake, alert and oriented x3. Assessment: Acute inferior wall myocardial infarction Diabetes mellitus type 2 Known history of coronary artery disease Tobacco use and dependence Plan: Patient scheduled for cardiac catheterization today with Dr. Live Further recommendations to follow based upon clinical course Thank you kindly for this consultation. Nurse practitioner note has been reviewed, I agree with documented findings and plan of care. Patient was seen and examined. Past Medical History Past Medical History: Chest Pain / Angina, Diabetes Mellitus Additional Past Medical History / Comment(s): 5 spontaneous vaginal deliveries. Patient's history is significant for noncompliance and history of positive group B strep. History of Any Multi-Drug Resistant Organisms: None Reported Past Surgical History: No Surgical Hx Reported Past Anesthesia/Blood Transfusion Reactions: No Reported Reaction Past Psychological History: ADD/ADHD, Anxiety, Bipolar Smoking Status: Former smoker - Past Family History Mother Family Medical History: Diabetes Mellitus Medications and Allergies Home Medications Medication Instructions Recorded Confirmed Type Fluconazole [Diflucan] 150 mg PO DAILY 10/26/23 10/26/23 History Ofloxacin 0.3% Ophth Soln [Ocuflox 2 drops BOTH EYES QID 10/26/23 10/26/23 History Ophth Soln] Allergies Allergy/AdvReac Type Severity Reaction Status Date / Time Fish Containing Products Allergy Nausea & Verified 10/26/23 13:17 [Fish] Vomiting & Diarrhea soy Allergy Nausea & Verified 10/26/23 13:17 Vomiting lactose AdvReac Severe Nausea & Verified 10/26/23 13:17 Vomiting & Diarrhea Pork/Porcine Containing AdvReac Nausea & Verified 10/26/23 13:17 Products Vomiting & [Pork] Diarrhea shellfish derived [Shellfish] AdvReac Anaphylaxis Verified 10/26/23 13:17 Physical Exam Vitals: Vital Signs Temp Pulse Resp BP Pulse Ox 10/26/23 11:19 98.5 F 117 H 20 129/91 99 Intake and Output 10/25/23 10/26/23 10/26/23 22:59 06:59 14:59 Other: Weight 96.615 kg Results 10/26/23 11:24 10/26/23 11:24 Cardiac Enzymes 10/26/23 10/26/23 Range/Units 11:24 11:24 AST 30 (14-36) U/L Troponin I 0.099 H* (0.000-0.034) ng/mL Coagulation 10/26/23 Range/Units 11:24 PT 10.7 (10.0-12.5) sec APTT 24.3 (22.0-30.0) sec CBC 10/26/23 Range/Units 11:24 WBC 8.5 (3.8-10.6) k/uL RBC 5.15 (3.80-5.40) m/uL Hgb 14.7 (11.4-16.0) gm/dL Hct 44.5 (34.0-46.0) % Plt Count 261 (150-450) k/uL Comprehensive Metabolic Panel 10/26/23 Range/Units 11:24 Sodium 137 (137-145) mmol/L Potassium 4.3 (3.5-5.1) mmol/L Chloride 103 (98-107) mmol/L Carbon Dioxide 23 (22-30) mmol/L BUN 9 (7-17) mg/dL Creatinine 0.39 L (0.52-1.04) mg/dL Glucose 341 H (74-99) mg/dL Calcium 9.2 (8.4-10.2) mg/dL AST 30 (14-36) U/L ALT 16 (4-34) U/L Alkaline Phosphatase 128 H (38-126) U/L Total Protein 7.5 (6.3-8.2) g/dL Albumin 4.4 (3.5-5.0) g/dL Current Medications Generic Name Dose Route Start Last Admin Trade Name Freq PRN Reason Stop Dose Admin Acetaminophen 650 mg 10/26/23 13:03 Acetaminophen Tab 325 Mg Tab PO Q6HR PRN Mild Pain or Fever > 100.5 Hydrocodone Bitart/Acetaminophen 1 each 10/26/23 13:03 Hydrocodone/Apap 5-325mg 1 Each Tab PO Q4HR PRN Moderate Pain (Scale 4 to 6) Alprazolam 0.25 mg 10/26/23 13:20 Alprazolam 0.25 Mg Tab PO Q6HR PRN Mild Anxiety Alprazolam 0.5 mg 10/26/23 13:20 Alprazolam 0.5 Mg Tab PO Q6HR PRN Moderate Anxiety Heparin Sodium (Porcine) 0 unit 10/26/23 12:52 Heparin Sodium 1,000 Un/Ml (10ml Vl) IV PER PROTOCOL PRN Low PTT Protocol Heparin Sodium/Sodium Chloride 250 mls @ 10 mls/hr 10/26/23 13:00 10/26/23 13:22 25,000 unit/ Sodium Chloride IV 10.35 units/kg/hr .Q24H BENITO 10 mls/hr Administration Protocol 10.35 UNITS/KG/HR Heparin Sodium (Porcine) 10, 1,001 mls @ 999 mls/hr 10/27/23 07:00 000 unit/ Sodium Chloride IRRIGATION 10/27/23 23:00 ONCE PRN INTRA-OP Heparin Sodium (Porcine) 2,500 250.5 mls @ 250 mls/hr 10/27/23 07:00 unit/ Sodium Chloride IRRIGATION 10/27/23 23:00 ONCE PRN INTRA-OP Morphine Sulfate 4 mg 10/26/23 13:03 Morphine Sulfate 4 Mg/Ml Syringe IV Q4HR PRN Severe Pain (Scale 7 to 10) Naloxone HCl 0.2 mg 10/26/23 13:03 Naloxone 0.4 Mg/Ml 1 Ml Vial IV Q2M PRN Opioid Reversal Nitroglycerin 0.4 mg 10/26/23 13:20 Nitroglycerin Sl Tabs 0.4 Mg Tab SUBLINGUAL Q5M PRN Chest Pain Ondansetron HCl 4 mg 10/26/23 13:03 Ondansetron 4 Mg/2 Ml Vial IVP Q8HR PRN Nausea And Vomiting Intake and Output 10/25/23 10/26/23 10/26/23 22:59 06:59 14:59 Other: Weight 96.615 kg Patient Weight 10/27/23 06:59 Weight 96.615 kg 10/26/23 11:24 10/26/23 11:24
[2023-10-26] MEDS: MIDAZOLAM 2 MG/2 ML VIAL IVP ONE (13:40)
[2023-10-26] MEDS: methylPREDNISolone SOD SUCCI 125 MG/2 ML VIAL IVP ONE (13:40)
[2023-10-26] MEDS: diphenhydrAMINE 50 MG/ML 1 ML VIAL IVP ONE (13:40)
[2023-10-26] MEDS ORDERED: HEPARIN SODIUM 1,000 UN/ML (10ML VL) ONE (13:40)
[2023-10-26] MEDS ORDERED: diphenhydrAMINE 50 MG/ML 1 ML VIAL ONE (13:40)
[2023-10-26] MEDS ORDERED: methylPREDNISolone SOD SUCCI 125 MG/2 ML VIAL ONE (13:40)
[2023-10-26] MEDS ORDERED: fentaNYL (PF) 50 MCG/ML 2 ML AMP ONE (13:40)
[2023-10-26] MEDS: LIDOCAINE 1% INJ 10MG/ML (20 ML MDV) SQ ONE (13:43)
[2023-10-26] MEDS: NITROGLYCERIN 1000MCG/10ML SYRINGE INTRACORON ONE (13:55)
[2023-10-26] MEDS ORDERED: RX INFO: IV CONTRAST WAS GIVEN 1 EACH MISC MISCELLANE PRN (14:05)
[2023-10-26] MEDS: IOPAMIDOL-370 100ML BTL INJ ONE (14:08)
--- NOTE | 2023-10-26 14:10 | P.PCN ---
Date of Procedure: 10/26/23 Operative Findings: CARDIAC CATHETERIZATION PERFORMING PHYSICIAN: Garrett Live MD, RPVI PROCEDURE PERFORMED: 1. Selective right and left coronary angiogram 2. Left heart catheterization 3. Ultrasound-guided access of the right common femoral artery and selective right common femoral artery angiogram INDICATION: Acute coronary syndrome COMPLICATION: None APPROACH: Right common femoral artery LEVEL OF SEDATION: Moderate with sedation in length of 30 minutes PROCEDURE DESCRIPTION: After obtaining an informed consent, the patient was brought to cardiac clinical laboratory technologist. Local anesthesia was performed using lidocaine subcutaneously. The right common femoral artery was cannulated using Seldinger technique, the guidewire passed easily, following that we advanced a 6 Malagasy sheath dilator assembly, the wire and dilator were removed and sheath was flushed. Selective right and left coronary angiogram using a 6-Malagasy JR4 and JL catheters. Following that we did left heart catheterization using 6-Malagasy pigtail catheter. The procedure was completed there was no complication. SELECTIVE CORONARY ANGIOGRAM: The right coronary artery: Large-caliber vessel and a dominant vessel with intermediate disease involving the midportion appeared to be unchanged compared to before Left main: Is angiographically normal The left circumflex: Large-caliber vessel none dominant vessel. The mid left circumflex has intermediate lesion appears to be in the range of 50 to 60% and has not changed compared to before. Gives rise into an OM1 which also has intermediate lesion. The left anterior descending artery: Large-caliber vessel. The mid LAD has 2 tandem lesions appear to be in the range of 50% improved slightly after giving the patient nitroglycerin sublingually. HEMODYNAMICS: LVEDP was 1 with no significant gradient across aortic valve CONCLUSION: 1. Intermediate triple-vessel coronary artery disease 2. Low left-sided filling pressure POSTPROCEDURE MANAGEMENT: Medical treatment
[2023-10-26] MEDS: SODIUM CHLORIDE 0.9% 1,000 ML IV SCH (14:20)
[2023-10-26 14:29] LABS: Glucose,Whole Blood 251 mg/dL (70-110)
[2023-10-26] MEDS: CLOPIDOGREL 75 MG TAB PO STA (14:29)
[2023-10-26] MEDS: INSULIN ASPART (NovoLOG) 100 UNIT/ML VIAL SQ ONE ×2 (16:25→20:35)
[2023-10-26] MEDS: OFLOXACIN 0.3% OPHTH DROPS 5 ML BOTTLE BOTH EYES SCH (19:22)
[2023-10-26 19:47] LABS: Glucose,Whole Blood 504 mg/dL (70-110)
[2023-10-26] MEDS: INSULIN ASPART (NovoLOG) 100 UNIT/ML VIAL SQ SCH (20:35)
[2023-10-26] MEDS: INSULIN DETEMIR (LEVEMIR) 100 UNIT/ML SYR SQ SCH (20:36)
[2023-10-26] MEDS: METOPROLOL TARTRATE 12.5 MG TAB PO SCH (20:36)
[2023-10-26 21:32] VITALS: RESP 17
[2023-10-27 02:00] LABS: Glucose,Whole Blood 282 mg/dL (70-110)
--- NOTE | 2023-10-27 05:32 | P.HPIM ---
History of Present Illness H&P Date: 10/26/23 This is a pleasant 38-year-old female who presented to the emergency department via EMS with chest pain that have been ongoing since the morning. Patient reports it woke her up out of his sleep and started feeling chest heaviness with pressure and pain that persisted. Patient reports she does not currently have a primary care provider in the outpatient setting and has been noncompliant with medications for over a month and is poor to follow-up. Patient reports she has diabetes and has been intermittently on insulins along with oral medications but has not been taking any in quite some time. Patient reports her family was recently sick with cough and congestion and low-grade temps and patient had it briefly although has resolved. EKG with concerns of myocardial infarction showing ST elevation and troponin was found to be elevated at 0.448 and patient was brought to the [facility] for cardiac catheterization. Patient was evaluated postcardiac catheterization and extended stay and cath revealed intermediate triple-vessel coronary artery disease with low left sided filling pressure recommending medical treatment and close outpatient follow-up. Patient was admitted and will be monitored on telemetry monitoring with cardiology following. REVIEW OF SYSTEMS: CONSTITUTIONAL: No fever, no malaise, no fatigue. HEENT: No recent visual problems or hearing problems. Denied any sore throat. CARDIOVASCULAR: Reports of chest pain, denies orthopnea, PND, no palpitations, no syncope. PULMONARY: No shortness of breath, no cough, no hemoptysis. GASTROINTESTINAL: No diarrhea, no nausea, no vomiting, no abdominal pain. NEUROLOGICAL: No headaches, no weakness, no numbness. HEMATOLOGICAL: Denies any bleeding or petechiae. GENITOURINARY: Denies any burning micturition, frequency, or urgency. MUSCULOSKELETAL/RHEUMATOLOGICAL: Denies any joint pain, swelling, or any muscle pain. ENDOCRINE: Denies any polyuria or polydipsia. The rest of the 14-point review of systems is negative. PHYSICAL EXAMINATION: GENERAL: The patient is alert and oriented x3, not in any acute distress. Well developed, well nourished. Obese HEENT: Pupils are round and equally reacting to light. EOMI. No scleral icterus. No conjunctival pallor. Normocephalic, atraumatic. No pharyngeal erythema. No thyromegaly. CARDIOVASCULAR: S1 and S2 muffled PULMONARY: Chest is clear to auscultation, no wheezing or crackles. ABDOMEN: Soft, nontender, nondistended, normoactive bowel sounds. No palpable or ganomegaly. MUSCULOSKELETAL: No joint swelling or deformity. EXTREMITIES: No cyanosis, clubbing, or pedal edema. NEUROLOGICAL: Gross neurological examination did not reveal any focal deficits. SKIN: No rashes. Assessment: Chest pain, elevated troponin, NSTEMI Status postcardiac catheterization showing moderate triple-vessel disease with no stenting required at this time History of diabetes type 2, uncontrolled with hyperglycemia and not currently taking any medications Obesity with a BMI 36.6 History of ADHD History of bipolar depression Former nicotine use Noncompliance with medications and follow-up GI prophylaxis DVT prophylaxis Full code Plan: Patient had elevated troponins and chest pain brought to the [facility] underwent cardiac catheterization with no stenting at this time recommending medical management and close outpatient follow-up Blood sugars elevated and uncontrolled and patient has not been taking any medications for diabetes. Will initiate sliding scale and long-acting insulin and monitor Accu-Cheks before meals and at bedtime Follow-up on repeat labs Will discuss further with cardiology regarding discharge planning, continue telemetry monitoring Encouraged to increase activity as tolerated Patient will need resources on discharge for follow-up and obtaining a PCP Due to multiple complex medical issues, prognosis is guarded The impression and plan of care has been dictated by Shirley Moy, Nurse Practitioner as directed. Dr. Carlton MD I have performed a history and examination and MDM of this patient, discussed the same with the dictator, and agree with the dictator's assessment and plan as written ,documented as a scribe. Based on total visit time, I have performed more than 50% of the visit. Past Medical History Past Medical History: Chest Pain / Angina, Diabetes Mellitus Additional Past Medical History / Comment(s): 5 spontaneous vaginal deliveries. Patient's history is significant for noncompliance and history of positive group B strep. History of Any Multi-Drug Resistant Organisms: None Reported Past Surgical History: No Surgical Hx Reported Past Anesthesia/Blood Transfusion Reactions: No Reported Reaction Past Psychological History: ADD/ADHD, Anxiety, Bipolar Smoking Status: Former smoker - Past Family History Mother Family Medical History: Diabetes Mellitus Medications and Allergies Home Medications Medication Instructions Recorded Confirmed Type Fluconazole [Diflucan] 150 mg PO DAILY 10/26/23 10/26/23 History Ofloxacin 0.3% Ophth Soln [Ocuflox 2 drops BOTH EYES QID 10/26/23 10/26/23 Histo ry Ophth Soln] Allergies Allergy/AdvReac Type Severity Reaction Status Date / Time Fish Containing Products Allergy Nausea & Verified 10/26/23 13:17 [Fish] Vomiting & Diarrhea soy Allergy Nausea & Verified 10/26/23 13:17 Vomiting lactose AdvReac Severe Nausea & Verified 10/26/23 13:17 Vomiting & Diarrhea Pork/Porcine Containing AdvReac Nausea & Verified 10/26/23 13:17 Products Vomiting & [Pork] Diarrhea shellfish derived [Shellfish] AdvReac Anaphylaxis Verified 10/26/23 13:17 Physical Exam Vitals: Vital Signs Temp Pulse Resp BP Pulse Ox 10/26/23 11:19 98.5 F 117 H 20 129/91 99 Intake and Output 10/26/23 10/26/23 10/26/23 06:59 14:59 22:59 Intake Total 100 Balance 100 Intake: IV 100 Other: Weight 96.615 kg Results CBC & Chem 7: 10/26/23 11:24 10/26/23 11:24 Labs: Abnormal Lab Results - Last 24 Hours (Table) 10/26/23 10/26/23 10/26/23 Range/Units 11:24 11:24 14:27 Creatinine 0.39 L (0.52-1.04) mg/dL Glucose 341 H (74-99) mg/dL POC Glucose (mg/dL) 251 H (70-110) mg/dL Alkaline Phosphatase 128 H (38-126) U/L Troponin I 0.099 H* (0.000-0.034) ng/mL
[2023-10-27 05:39] LABS: Glucose,Whole Blood 255 mg/dL (70-110)
[2023-10-27] MEDS ORDERED: HEPARIN SODIUM,PORCINE (1 ML) 2,500 UNIT in SODIUM CHLORIDE 0.9% 250 ML IRRIGATION PRN (07:00)
[2023-10-27] MEDS ORDERED: HEPARIN SODIUM,PORCINE 10,000 UNIT in SODIUM CHLORIDE 0.9% 1,000 ML IRRIGATION PRN (07:00)
[2023-10-27] MEDS: ASPIRIN 81 MG PO SCH (08:31)
[2023-10-27 08:46] VITALS: TEMP 98.3
[2023-10-27 09:14] LABS: Basophils % (A) 0 %; Eosinophils # (A) 0.1 k/uL (0-0.7); Eosinophils % (A) 1 %; HCT 43.7 % (34.0-46.0); HGB 14.3 gm/dL (11.4-16.0); Lymphocytes # (A) 1.5 k/uL (1.0-4.8); Lymphocytes % (A) 14 %; MCH 28.6 pg (25.0-35.0); MCHC 32.7 g/dL (31.0-37.0); MCV 87.3 fL (80.0-100.0); Mean Platelet Volume 8.4; Monocytes # (A) 0.5 k/uL (0-1.0); Monocytes % (A) 5 %; Neutrophils # (A) 8.6 k/uL (1.3-7.7); Neutrophils % (A) 79 %; Platelet Count 277 k/uL (150-450); RBC 5.01 m/uL (3.80-5.40); RDW 14.1 % (11.5-15.5); WBC 10.8 k/uL (3.8-10.6)
[2023-10-27 09:17] LABS: Prothrombin Time 11.3 sec (10.0-12.5)
[2023-10-27 09:32] LABS: African American GFR (CKD) >90 (>60 ml/min/1.73 sqM); Anion Gap 11 mmol/L; Blood Urea Nitrogen 10 mg/dL (7-17); Carbon Dioxide 16 mmol/L (22-30); Chloride 106 mmol/L (98-107); Glucose 309 mg/dL (74-99); Non-African American GFR(CKD) >90 (>60 ml/min/1.73 sqM); Sodium 133 mmol/L (137-145)
[2023-10-27 10:32] LABS: Potassium 3.6 mmol/L (3.5-5.1)
[2023-10-27 11:40] LABS: Glucose,Whole Blood 402 mg/dL (70-110)
[2023-10-27] MEDS: CLOPIDOGREL 75 MG TAB PO SCH (12:27)
--- NOTE | 2023-10-27 12:31 | P.PN ---
Subjective Progress Note Date: 10/27/23 Reason for Consult (text): STEMI History of present illness: History of present illness: This is a 38-year-old female with past medical history of diabetes, tobacco use and dependence, bipolar disorder. Patient has history of inferior myocardial infarction in March 2023 status post cardiac catheterization finding intermediate triple-vessel coronary artery disease with Dr. Live. Patient apparently took her medications for about 1 to 2 weeks and has not had any follow-up since then. Patient presented to the emergency center due to chest pain that started at 6 AM along with radiation to her neck and arm. Patient has been started on heparin drip. Due to non-ST elevated ID, patient is being moved to the [facility] for urgent cardiac catheterization with Dr. Live today. EKG with ST elevation in the inferior leads Chest x-ray: No acute process CBC unremarkable. INR 1. D-dimer 0.29. Her lites and renal function are normal. Magnesium 1.7, alkaline phosphatase 128 otherwise liver function test are normal. Troponin 0.099. hCG not detected. Echocardiogram performed 03/29/2023: Normal LV systolic function, inferior wall hypokinesis secondary to myocardial infarction Home cardiac medications: None Cardiac catheterization performed on 03/30/[address] Live revealed intermediate triple-vessel coronary artery disease, elevated left-sided filling pressure. Medical management was recommended. 10/26 Yesterday, patient underwent cardiac catheterization with Dr. Live which revealed intermediate triple-vessel coronary artery disease. Low left-sided filling pressures. Recommendations for medical management. Patient has ambulated in the hallway without any difficulty with chest pain shortness of breath lightheadedness or dizziness. Repeat EKG has been reviewed this morning. Blood pressure 106/73, heart rate 89, pulse ox 96% on room air. Repeat blood work reveals hemoglobin of 14.3, BUN 10, creatinine 0.4. Physical examination: Gen: This is a obese 38-year-old black female in no acute distress. VS: reviewed HEENT: Head is atraumatic, normocephalic. Pupils equal, round. Sclerae is anicteric. NECK: Supple. No JVD. LUNGS: Clear to auscultation. No wheezes or rhonchi. No intercostal retractions. HEART: Regular rate and rhythm. No murmur. ABDOMEN: Soft No tenderness. EXTREMITIES: No pedal edema. No calf tenderness. NEUROLOGICAL: Patient is awake, alert and oriented x3. Assessment: Acute inferior wall myocardial infarction status postcardiac catheterization finding intermediate triple-vessel CAD Diabetes mellitus type 2 Known history of coronary artery disease Tobacco use and dependence Plan: Continue patient on current cardiac medications Smoking cessation Patient is cleared for discharge from cardiology and may follow-up Dr. Live in 1 week. Nurse practitioner note has been reviewed, I agree with documented findings and plan of care. Patient was seen and examined. Objective - Vital Signs Vital signs: Vital Signs Temp 98.3 F 10/27/23 08:28 Pulse 89 10/27/23 08:28 Resp 17 10/27/23 08:28 BP 106/73 10/27/23 08:28 Pulse Ox 98 10/27/23 08:45 FiO2 21 10/27/23 08:45 Intake & Output 10/26/23 10/27/23 10/27/23 18:59 06:59 18:59 Intake Total 1238 762 118 Output Total 600 1300 Balance 638 -538 118 Weight 96.615 kg Intake: IV 400 Oral 838 762 118 Output: Urine 600 1300 Other: Voiding Method Toilet Toilet - Labs CBC & Chem 7: 10/27/23 08:24 10/27/23 08:24 Labs: Abnormal Lab Results - Last 24 Hours (Table) 10/26/23 10/26/23 10/26/23 Range/Units 11:24 11:24 14:27 WBC (3.8-10.6) k/uL Neutrophils # (1.3-7.7) k/uL Sodium (137-145) mmol/L Carbon Dioxide (22-30) mmol/L Creatinine 0.39 L (0.52-1.04) mg/dL Glucose 341 H (74-99) mg/dL POC Glucose (mg/dL) 251 H (70-110) mg/dL Alkaline Phosphatase 128 H (38-126) U/L Troponin I 0.099 H* (0.000-0.034) ng/mL 10/26/23 10/26/23 10/26/23 Range/Units 18:08 19:42 21:38 WBC (3.8-10.6) k/uL Neutrophils # (1.3-7.7) k/uL Sodium (137-145) mmol/L Carbon Dioxide (22-30) mmol/L Creatinine (0.52-1.04) mg/dL Glucose (74-99) mg/dL POC Glucose (mg/dL) 504 H (70-110) mg/dL Alkaline Phosphatase (38-126) U/L Troponin I 0.279 H* 0.448 H* (0.000-0.034) ng/mL 10/27/23 10/27/23 10/27/23 Range/Units 01:59 05:37 08:24 WBC 10.8 H (3.8-10.6) k/uL Neutrophils # 8.6 H (1.3-7.7) k/uL Sodium (137-145) mmol/L Carbon Dioxide (22-30) mmol/L Creatinine (0.52-1.04) mg/dL Glucose (74-99) mg/dL POC Glucose (mg/dL) 282 H 255 H (70-110) mg/dL Alkaline Phosphatase (38-126) U/L Troponin I (0.000-0.034) ng/mL 10/27/23 Range/Units 08:24 WBC (3.8-10.6) k/uL Neutrophils # (1.3-7.7) k/uL Sodium 133 L (137-145) mmol/L Carbon Dioxide 16 L (22-30) mmol/L Creatinine 0.40 L (0.52-1.04) mg/dL Glucose 309 H (74-99) mg/dL POC Glucose (mg/dL) (70-110) mg/dL Alkaline Phosphatase (38-126) U/L Troponin I (0.000-0.034) ng/mL
[2023-10-27 12:57] VITALS: BP 91/59; PULSE 82
[2023-10-27] MEDS ORDERED: ATORVASTATIN 80 MG TAB PO SCH (21:00)
== END 2023-10-27 14:02 | disposition home or self-care (01) | DRG 282 ==
LOC: EC 11:06 → 2SICU 13:23 → 3SCARD 14:06
PROVIDERS: ADMIT Internal Medicine; ATTEND Internal Medicine
PROC: 4A023N7 Measurement of Cardiac Sampling and Pressure, Left Heart, Percutaneous Approach (ICD-10-PCS; principal; 2023-10-26 15:20)
PROC: B2111ZZ Fluoroscopy of Multiple Coronary Arteries using Low Osmolar Contrast (ICD-10-PCS; principal; 2023-10-26 15:20)
PROC: B41F1ZZ Fluoroscopy of Right Lower Extremity Arteries using Low Osmolar Contrast (ICD-10-PCS; principal; 2023-10-26 15:20)
DX: I21.19 ST elevation (STEMI) myocardial infarction involving other coronary artery of inferior wall (principal); E11.65 Type 2 diabetes mellitus with hyperglycemia; F31.9 Bipolar disorder, unspecified; J44.9 Chronic obstructive pulmonary disease, unspecified; I10 Essential (primary) hypertension; E66.9 Obesity, unspecified; Z68.36 Body mass index [BMI] 36.0-36.9, adult; I25.10 Atherosclerotic heart disease of native coronary artery without angina pectoris; I25.2 Old myocardial infarction; F41.9 Anxiety disorder, unspecified; F90.9 Attention-deficit hyperactivity disorder, unspecified type; Z91.148 Patient's other noncompliance with medication regimen for other reason; Z91.199 Patient's noncompliance with other medical treatment and regimen due to unspecified reason; Z79.899 Other long term (current) drug therapy; Z87.891 Personal history of nicotine dependence
CPT/HCPCS: 36415; 71046; 76937; 80048; 80053; 83036; 83735; 84484; 84703; 85025; 85379; 85610; 85730; 87636; 93005; 93458; 94760; 96374; 99285

== ENCOUNTER 2024-02-22 12:32 | Emergency (ER) | payer MEDICARE, OTHER ==
--- NOTE | 2024-02-22 12:56 | ED ---
General Adult HPI - General Chief complaint: Upper Respiratory Infection Stated complaint: Sob,vomiting Time Seen by Provider: 02/22/24 12:51 Source: patient, RN notes reviewed Mode of arrival: ambulatory Limitations: no limitations - History of Present Illness Initial comments: This is a 39-year-old female presents emergency department chief complaint of nausea, vomiting, abdominal pain and diarrhea that started at approximately 2 AM this morning. She states that she had [employer] last night for dinner and is concerned that she may have possibly gotten food poisoning from this. Last episode of diarrhea was approximately 2 hours before emergency room arrival states that she had a few episodes of emesis with her most recent being in the morning. She denies dark or tarry stools, dyschezia, hematochezia, hematemesis. He also states that one of her colleagues family members was recently diagnosed with COVID. She denies rhinorrhea, cough, congestion, fevers. - Related Data Home Medications Medication Instructions Recorded Confirmed Fluconazole [Diflucan] 150 mg PO DAILY 10/26/23 10/26/23 Ofloxacin 0.3% Ophth Soln [Ocuflox 2 drops BOTH EYES QID 10/26/23 10/26/23 Ophth Soln] Previous Rx's Medication Instructions Recorded Aspirin 81 mg PO DAILY tab 10/27/23 Atorvastatin [Lipitor] 80 mg PO HS #90 tab 10/27/23 Clopidogrel [Plavix] 75 mg PO DAILY #90 tab 10/27/23 Metoprolol Tartrate [Lopressor] 12.5 mg PO BID #180 tab 10/27/23 Nitroglycerin Sl Tabs [Nitrostat] 0.4 mg SUBLINGUAL Q5M PRN #25 tab 10/27/23 Ondansetron Odt [Zofran Odt] 4 mg PO Q8HR PRN #10 tab 02/22/24 Allergies Allergy/AdvReac Type Severity Reaction Status Date / Time Fish Containing Products Allergy Nausea & Verified 10/26/23 13:17 [Fish] Vomiting & Diarrhea soy Allergy Nausea & Verified 10/26/23 13:17 Vomiting lactose AdvReac Severe Nausea & Verified 10/26/23 13:17 Vomiting & Diarrhea Pork/Porcine Containing AdvReac Nausea & Verified 10/26/23 13:17 Products Vomiting & [Pork] Diarrhea shellfish derived [Shellfish] AdvReac Anaphylaxis Verified 10/26/23 13:17 Review of Systems ROS Statement: Those systems with pertinent positive or pertinent negative responses have been documented in the HPI. ROS Other: All systems not noted in ROS Statement are negative. Past Medical History Past Medical History: Chest Pain / Angina, Diabetes Mellitus, Myocardial Infarction ([place]) Additional Past Medical History / Comment(s): 5 spontaneous vaginal deliveries. Patient's history is significant for noncompliance and history of positive group B strep. History of Any Multi-Drug Resistant Organisms: None Reported Past Surgical History: No Surgical Hx Reported Additional Past Surgical History / Comment(s): clear heart cath 2022 Past Anesthesia/Blood Transfusion Reactions: No Reported Reaction Past Psychological History: ADD/ADHD, Anxiety, Bipolar Smoking Status: Former smoker - Past Family History Mother Family Medical History: Diabetes Mellitus General Exam Limitations: no limitations General appearance: alert, in no apparent distress Head exam: Present: atraumatic, normocephalic, normal inspection Eye exam: Present: normal appearance, PERRL, EOMI. Absent: scleral icterus, conjunctival injection, periorbital swelling ENT exam: Present: normal exam, mucous membranes moist Neck exam: Present: normal inspection. Absent: tenderness, meningismus, lymphadenopathy Respiratory exam: Present: normal lung sounds bilaterally. Absent: respiratory distress, wheezes, rales, rhonchi, stridor Cardiovascular Exam: Present: regular rate, normal rhythm, normal heart sounds. Absent: systolic murmur, diastolic murmur, rubs, gallop, clicks GI/Abdominal exam: Present: soft, hyperactive bowel sounds. Absent: distended, tenderness, guarding, rebound, rigid Extremities exam: Present: normal inspection, full ROM, normal capillary refill. Absent: tenderness, pedal edema, joint swelling, calf tenderness Neurological exam: Present: alert, oriented X3, CN II-XII intact Course Vital Signs 02/22/24 02/22/24 02/22/24 12:49 14:04 14:13 Temperature 100.2 F H 100.2 F H 98.1 F Pulse Rate 113 H 89 Respiratory 20 18 Rate Blood Pressure 154/91 148/80 O2 Sat by Pulse 99 99 Oximetry Medical Decision Making - Medical Decision Making Was pt. sent in by a medical professional or institution (, PA, NUCLEAR AUXILIARY OPERATOR, urgent care, hospital, or assisted...) When possible be specific @ -No Did you speak to anyone other than the patient for history (EMS, parent, family, police, friend...)? What history was obtained from this source @ -No Did you review nursing and triage notes (agree or disagree)? Why? @ -I reviewed and agree with nursing and triage notes Were old charts reviewed (outside hosp., previous admission, EMS record, old EKG, old radiological studies, urgent care reports/EKG's, assisted records)? Report findings @ -No old charts were reviewed Differential Diagnosis (chest pain, altered mental status, abdominal pain women, abdominal pain men, vaginal bleeding, weakness, fever, dyspnea, worse before arrival to the emergency department, headache, dizziness, GI bleed, back pain, seizure, CVA, palpatations, mental health, musculoskeletal)? @ -Differential Abdominal Pain Women: Appendicitis, Cholecystitis, diverticulosis, ischemic bowel, pancreatitis, hepatitis, UTI, gastroenteritis, AAA, incarcerated hernia, bowel obstruction, constipation, inflammatory bowel, hepatitis, peptic ulcer disease, splenic infarction, perforated viscus, vulvitis, ovarian torsion, PID, kidney stone, placenta abruption, this is not meant to be an all-inclusive list EKG interpreted by me (3pts min.). @ -none X-rays interpreted by me (1pt min.). @ -None done CT interpreted by me (1pt min.). @ -None done U/S interpreted by me (1pt. min.). @ -None done What testing was considered but not performed or refused? (CT, X-rays, U/S, labs)? Why? @ - labs were considered but deferred at this time due to patient's symptoms improving since they started. Additionally symptoms have been resolving with most current symptoms predominatley body aches with most commonly associated with a viral infection rather than acute intra-abdominal process or other pathology. What meds were considered but not given or refused? Why? @ -None Did you discuss the management of the patient with other professionals (professionals i.e. , PA, NUCLEAR AUXILIARY OPERATOR, lab, RT, psych nurse, child protective services social worker, assistant professor of life sciences, teacher, division officer weapons department, continuous pillowcase cutter)? Give summary @ -No Was smoking cessation discussed for >3mins.? @ -No Was critical care preformed (if so, how long)? @ -No Were there social determinants of health that impacted care today? How? (Homelessness, low income, unemployed, alcoholism, drug addiction, transportation, low edu. Level, literacy, decrease access to med. care, senior living, rehab)? @ -No Was there de-escalation of care discussed even if they declined (Discuss DNR or withdrawal of care, Hospice)? DNR status @ -No What co-morbidities impacted this encounter? (DM, HTN, Smoking, COPD, CAD, Cancer, CVA, ARF, Chemo, Hep., AIDS, mental health diagnosis, sleep apnea, morbi d obesity)? @ -None Was patient admitted / discharged? Hospital course, mention meds given and route, prescriptions, significant lab abnormalities, going to OR and other pertinent info. @ -Discharge. 39-year-old female with diarrhea, nausea vomiting, body aches. Patient's abdominal exam benign. She will be evaluated via Cepheid and provided with a dose of an anti-inflammatory and antinausea medication. Cepheid negative for COVID, flu, RSV. On reevaluation, patient states that her feelings of nausea have improved and bodyaches have subsided with Toradol. Recommend that patient continue to increase oral rehydration with fluids and follow a brat diet. She will be provided with a prescription for Zofran as needed for feelings of nausea. All questions answered at bedside and strict return parameters discussed with the patient she is verbalized understanding. Case discussed with Dr. Loco. Undiagnosed new problem with uncertain prognosis? @ -No Drug Therapy requiring intensive monitoring for toxicity (Heparin, Nitro, Insulin, Cardizem)? @ -No Were any procedures done? @ -No Diagnosis/symptom? @ -gastroenteritis, nausea and vomiting, body aches Acute, or Chronic, or Acute on Chronic? @ -acute Uncomplicated (without systemic symptoms) or Complicated (systemic symptoms)? @ -uncomplicated Side effects of treatment? @ -No Exacerbation, Progression, or Severe Exacerbation? @ -No Poses a threat to life or bodily function? How? (Chest pain, [place], [place], pneumonia, PE, COPD, DKA, ARF, appy, cholecystitis, CVA, Diverticulitis, Homicidal, Suicidal, threat to staff... and all critical care pts) @ -No - Lab Data Lab Results 02/22/24 Range/Units 13:04 Influenza Type A (PCR) Not Detected (Not Detectd) Influenza Type B (PCR) Not Detected (Not Detectd) RSV (PCR) Not Detected (Not Detectd) SARS-CoV-2 (PCR) Not Detected (Not Detectd) Disposition Clinical Impression: Gastroenteritis, Nausea & vomiting, Body aches Disposition: HOME SELF-CARE Condition: Poor Instructions (If sedation given, give patient instructions): Gastroenteritis (ED) Prescriptions: Ondansetron Odt [Zofran Odt] 4 mg PO Q8HR PRN #10 tab PRN Reason: Nausea Is patient prescribed a controlled substance at d/c from ED?: No Referrals: Cyrus Bernard MD [Primary Care Provider] - 1-2 days Time of Disposition: 13:58
[2024-02-22] MEDS: ONDANSETRON ODT 4 MG TAB PO STA (13:19)
[2024-02-22] MEDS: ACETAMINOPHEN TAB 500 MG TAB PO STA (13:19)
[2024-02-22] MEDS: KETOROLAC 15 MG/ML 1 ML VIAL IM STA (13:20)
[2024-02-22 14:14] VITALS: BP 148/80; PULSE 89; RESP 18; TEMP 98.1
== END 2024-02-22 14:44 | disposition home or self-care (01) ==
LOC: EC 12:32
DX: K52.9 Noninfective gastroenteritis and colitis, unspecified (principal); M79.10 Myalgia, unspecified site; E66.01 Morbid (severe) obesity due to excess calories; Z87.891 Personal history of nicotine dependence; Z91.013 Allergy to seafood; Z91.011 Allergy to milk products; Z91.018 Allergy to other foods; Z68.37 Body mass index [BMI] 37.0-37.9, adult
CPT/HCPCS: 87636; 99285; 96372; J1885

== ENCOUNTER 2024-10-25 15:36 | Emergency (ER) | payer MEDICARE, OTHER ==
--- NOTE | 2024-10-25 17:11 | ED ---
General Adult HPI - General Chief complaint: Skin/Abscess/Foreign Body Stated complaint: Urogenital Time Seen by Provider: 10/25/24 16:14 Source: patient Mode of arrival: ambulatory Limitations: no limitations - History of Present Illness Initial comments: 39-year-old female presenting with chief complaint of painful cyst to her buttock. She has been getting the cysts for the last month. She has previously been on Keflex and Bactrim. She now has a large cyst on the right buttock that is painful when she sits. No fevers. No abdominal pain nausea or vomiting. No bleeding or discharge from the area. - Related Data Home Medications Medication Instructions Recorded Confirmed Fluconazole [Diflucan] 150 mg PO DAILY 10/26/23 10/26/23 Ofloxacin 0.3% Ophth Soln [Ocuflox 2 drops BOTH EYES QID 10/26/23 10/26/23 Ophth Soln] Previous Rx's Medication Instructions Recorded Aspirin 81 mg PO DAILY tab 10/27/23 Atorvastatin [Lipitor] 80 mg PO HS #90 tab 10/27/23 Clopidogrel [Plavix] 75 mg PO DAILY #90 tab 10/27/23 Metoprolol Tartrate [Lopressor] 12.5 mg PO BID #180 tab 10/27/23 Nitroglycerin Sl Tabs [Nitrostat] 0.4 mg SUBLINGUAL Q5M PRN #25 tab 10/27/23 Ondansetron Odt [Zofran Odt] 4 mg PO Q8HR PRN #10 tab 02/22/24 Doxycycline [Vibramycin] 100 mg PO BID 7 Days #14 capsule 10/25/24 Allergies Allergy/AdvReac Type Severity Reaction Status Date / Time Fish Containing Products Allergy Nausea & Verified 10/26/23 13:17 [Fish] Vomiting & Diarrhea soy Allergy Nausea & Verified 10/26/23 13:17 Vomiting lactose AdvReac Severe Nausea & Verified 10/26/23 13:17 Vomiting & Diarrhea Pork/Porcine Containing AdvReac Nausea & Verified 10/26/23 13:17 Products Vomiting & [Pork] Diarrhea shellfish derived [Shellfish] AdvReac Anaphylaxis Verified 10/26/23 13:17 Review of Systems ROS Statement: Those systems with pertinent positive or pertinent negative responses have been documented in the HPI. ROS Other: All systems not noted in ROS Statement are negative. Past Medical History Past Medical History: Chest Pain / Angina, Diabetes Mellitus, Myocardial Infarction (OR) Additional Past Medical History / Comment(s): 5 spontaneous vaginal deliveries. Patient's history is significant for noncompliance and history of positive group B strep. History of Any Multi-Drug Resistant Organisms: None Reported Past Surgical History: No Surgical Hx Reported Additional Past Surgical History / Comment(s): clear heart cath 2022 Past Anesthesia/Blood Transfusion Reactions: No Reported Reaction Past Psychological History: ADD/ADHD, Anxiety, Bipolar Smoking Status: Former smoker Past Alcohol Use History: None Reported Past Drug Use History: None Reported - Past Family History Mother Family Medical History: Diabetes Mellitus General Exam Limitations: no limitations General appearance: alert, in no apparent distress Head exam: Present: atraumatic, normocephalic, normal inspection Eye exam: Present: normal appearance, EOMI Neck exam: Present: normal inspection. Absent: meningismus Respiratory exam: Absent: respiratory distress Cardiovascular Exam: Present: regular rate Neurological exam: Present: alert, oriented X3 Psychiatric exam: Present: normal affect, normal mood Expanded Type of lesion: Present: abscess (Patient does have an approximately 6 to 7 cm oblong abscess on the right buttock near the gluteal cleft) Course Vital Signs 10/25/24 10/25/24 15:52 17:41 Temperature 97.9 F 98.0 F Pulse Rate 92 90 Respiratory 16 19 Rate Blood Pressure 113/73 118/74 O2 Sat by Pulse 98 98 Oximetry Procedures - Incision & Drainage Consent Obtained: verbal consent Site: buttock Anesthetic Used: lidocaine 1%, without epi Sterile Field Used?: No Scalpel Used: #11 Ultrasound used: No Needle Aspiration Performed?: No Irrigation Performed?: No I&D Drainage Obtained: Pus, Blood Insertion of drain: No Culture Obtained?: No Patient Tolerated Procedure: well Medical Decision Making - Medical Decision Making Was pt. sent in by a medical professional or institution (, PA, F[employer]EL QUALITY TE[employer], urgent care, hospital, or group home...) When possible be specific @ -No Did you speak to anyone other than the patient for history (EMS, parent, family, police, friend...)? What history was obtained from this source @ -No Did you review nursing and triage notes (agree or disagree)? Why? @ -I reviewed and agree with nursing and triage notes Were old charts reviewed (outside hosp., previous admission, EMS record, old EKG, old radiological studies, urgent care reports/EKG's, group home records)? Report findings @ -No old charts were reviewed Differential Diagnosis (chest pain, altered mental status, abdominal pain women, abdominal pain men, vaginal bleeding, weakness, fever, dyspnea, syncope, headache, dizziness, GI bleed, back pain, seizure, CVA, palpatations, mental health, musculoskeletal)? @ -Differential includes abscess, allergic reaction, eye vaginitis suppurativa, not an all-inclusive list EKG interpreted by me (3pts min.). @ -As above X-rays interpreted by me (1pt min.). @ -None done CT interpreted by me (1pt min.). @ -None done U/S interpreted by me (1pt. min.). @ -None done What testing was considered but not performed or refused? (CT, X-rays, U/S, labs)? Why? @ -None What meds were considered but not given or refused? Why? @ -None Did you discuss the management of the patient with other professionals (professionals i.e. , PA, F[employer] QU[employer]ITY TE[employer], lab, RT, psych nurse, director of social services, range mechanic, teacher, ordnance corps officer, case management assistant)? Give summary @ -No Was smoking cessation discussed for >3mins.? @ -No Was critical care preformed (if so, how long)? @ -No Were there social determinants of health that impacted care today? How? (Homelessness, low income, unemployed, alcoholism, drug addiction, transportation, low edu. Level, literacy, decrease access to med. care, penitentiary, rehab)? @ -No Was there de-escalation of care discussed even if they declined (Discuss DNR or withdrawal of care, Hospice)? DNR status @ -No What co-morbidities impacted this encounter? (DM, HTN, Smoking, COPD, CAD, Cancer, CVA, ARF, Chemo, Hep., AIDS, mental health diagnosis, sleep apnea, morbid obesity)? @ -None Was patient admitted / discharged? Hospital course, mention meds given and route, prescriptions, significant lab abnormalities, going to OR and other pertinent info. @ -39-year-old female presenting chief complaint of painful abscess to the right buttock. Abscess is incised and drained. Patient was started on doxycycline. She is educated on today's findings and wound care as well as signs of worsening infection that should prompt reevaluation. Provided with a dermatology referral for her recurrent cysts. Follow-up with PCP. Report back to ER with any new or worsening symptoms. Discussed return parameters and answered all questions. Patient conveyed verbal understanding and agreed to the plan. I discussed this case in detail with my attending Dr. Colvin Undiagnosed new problem with uncertain prognosis? @ -No Drug Therapy requiring intensive monitoring for toxicity (Heparin, Nitro, Insulin, Cardizem)? @ -No Were any procedures done? @ -Incision and drainage Diagnosis/symptom? @ -Abscess Acute, or Chronic, or Acute on Chronic? @ -Acute Uncomplicated (without systemic symptoms) or Complicated (systemic symptoms)? @ -Uncomplicated Side effects of treatment? @ -No Exacerbation, Progression, or Severe Exacerbation? @ -No Poses a threat to life or bodily function? How? (Chest pain, [place], OR, pneumonia, PE, COPD, DKA, ARF, appy, cholecystitis, CVA, Diverticulitis, Homicidal, Suicidal, threat to staff... and all critical care pts) @ -Low likelihood Disposition Clinical Impression: Abscess Disposition: HOME SELF-CARE Condition: Good Instructions (If sedation given, give patient instructions): Abscess Incision and Drainage (ED), Abscess (ED) Additional Instructions: Follow-up with PCP and cdl program coordinator. Report back to ER with any new or worsening symptoms. Take medication as prescribed. Hold warm compresses over the area to help drain any remaining pus. Expect to see continued drainage for the next 1 to 2 days. If you are having much drainage after this you should be reevaluated. Prescriptions: Doxycycline [Vibramycin] 100 mg PO BID 7 Days #14 capsule Is patient prescribed a controlled substance at d/c from ED?: No Referrals: None,Stated [Primary Care Provider] - 1-2 days Malcolm Centeno MD [STAFF PHYSICIAN] - 1-2 days Forms: Area PCPs Time of Disposition: 17:10
[2024-10-25] MEDS: DOXYCYCLINE 100 MG TABLET PO ONE (17:41)
[2024-10-25 17:42] VITALS: BP 118/74; PULSE 90; RESP 19; TEMP 98
== END 2024-10-25 17:42 | disposition home or self-care (01) ==
LOC: EC 15:36
DX: L02.31 Cutaneous abscess of buttock (principal); Z91.013 Allergy to seafood; Z91.018 Allergy to other foods; Z91.011 Allergy to milk products; Z87.891 Personal history of nicotine dependence
CPT/HCPCS: 10060; 99282